=== PATIENT | female | born 1935 | race Caucasian/White ===

== ENCOUNTER 2021-10-12 17:05 | Inpatient (IN) | payer MEDICARE ==
[~2021-10-12] VITALS: Ht 160 cm; Wt 82.2 kg
[2021-10-12] MEDS ORDERED: NS IV 500 ML 500 ML IV ONE (17:15)
--- NOTE | 2021-10-12 17:19 | ED Fall/Injury ---
General Chief Complaint: Trauma-Non Activation Stated Complaint: FALL Source: patient, RN/MD, EMS, [facility] records Exam Limitations: no limitations History of Present Illness Date Seen by Provider: Oct 12, 2021 Time Seen by Provider: 17:01 Initial Comments The patient presents to the ER by EMS from [facility] with chief complaint that just prior to arrival they were transitioning from the wheelchair to the bed and she somehow slid out of the aides grasped to the floor. She did not strike her head nor lose consciousness. She is not having any nausea or vomiting. She denies pain anywhere but her left leg was angulated and in the plane of her left thigh laterally. It is still swollen and deformed as well as shortened and rotated. She has had both of her hips replaced in the past at [place] but she does not member the surgeon's name. The patient is on Eliquis, insulin and Lasix. Allergies and Home Medications Allergies Coded Allergies: No Known Drug Allergies (Unverified , 10/12/21) Patient Home Medication List Home Medication List Reviewed: Yes Review of Systems Review of Systems Constitutional: see HPI Eyes: No Symptoms Reported Respiratory: no symptoms reported Cardiovascular: no symptoms reported Gastrointestinal: no symptoms reported Genitourinary: no symptoms reported Musculoskeletal: no symptoms reported Skin: no symptoms reported Psychiatric/Neurological: No Symptoms Reported All Other Systems Reviewed Negative Unless Noted: Yes Past Jcskkrk-Oaiibe-Avqjbq Hx Patient Social History Tobacco Use?: No Use of E-Cig and/or Vaping dev: No Substance use?: No Alcohol Use?: No Pt feels they are or have been: No Physical Exam Vital Signs Vital Signs - First Documented Capillary Refill : Height, Weight, BMI Height: '" Weight: lbs. oz. kg; BMI Method: General Appearance: WD/WN, no apparent distress HEENT: PERRL/EOMI (3mm), normal ENT inspection, TMs normal (Negative for elkins sign or hemotympanum), pharynx normal Neck: full range of motion, normal inspection Cardiovascular: normal peripheral pulses, regular rate, rhythm Respiratory: lungs clear, normal breath sounds, no respiratory distress, no accessory muscle use Peripheral Pulses: 2+ Radial Pulses (R), 2+ Radial Pulses (L) Gastrointestinal: normal bowel sounds, non tender, soft Pelvic: normal external exam Extremities: other (Tenderness over the distal left femur with obvious deformity and tenting of skin above the knee. No abrasion ecchymosis or laceration. 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, no motor/sensory deficits, alert, normal mood/affect, oriented x 3 Skin: normal color, warm/dry Progress/Results/Core Measures Results/Orders Lab Results Laboratory Tests Test 10/12/21 18:07 Range/Units White Blood Count 11.9 H 4.3-11.0 10^3/uL Red Blood Count 4.59 3.80-5.11 10^6/uL Hemoglobin 13.8 11.5-16.0 g/dL Hematocrit 43 35-52 % Mean Corpuscular Volume 94 80-99 fL Mean Corpuscular Hemoglobin 30 25-34 pg Mean Corpuscular Hemoglobin Concent 32 32-36 g/dL Red Cell Distribution Width 12.4 10.0-14.5 % Platelet Count 240 130-400 10^3/uL Mean Platelet Volume 10.1 9.0-12.2 fL Immature Granulocyte % (Auto) 1 % Neutrophils (%) (Auto) 86 H 42-75 % Lymphocytes (%) (Auto) 7 L 12-44 % Monocytes (%) (Auto) 5 0-12 % Eosinophils (%) (Auto) 0 0-10 % Basophils (%) (Auto) 0 0-10 % Neutrophils # (Auto) 10.3 H 1.8-7.8 10^3/uL Lymphocytes # (Auto) 0.9 L 1.0-4.0 10^3/uL Monocytes # (Auto) 0.6 0.0-1.0 10^3/uL Eosinophils # (Auto) 0.0 0.0-0.3 10^3/uL Basophils # (Auto) 0.0 0.0-0.1 10^3/uL Immature Granulocyte # (Auto) 0.1 0.0-0.1 10^3/uL Neutrophils % (Manual) 88 % Lymphocytes % (Manual) 5 % Monocytes % (Manual) 7 % Elliptocytes SLIGHT Prothrombin Time 15.6 H 12.2-14.7 SEC INR Comment 1.2 0.8-1.4 Sodium Level 138 135-145 MMOL/L Potassium Level 3.8 3.6-5.0 MMOL/L Chloride Level 102 98-107 MMOL/L Carbon Dioxide Level 25 21-32 MMOL/L Anion Gap 11 5-14 MMOL/L Blood Urea Nitrogen 13 7-18 MG/DL Creatinine 0.80 0.60-1.30 MG/DL Estimat Glomerular Filtration Rate 71 BUN/Creatinine Ratio 16 Glucose Level 59 *L 70-105 MG/DL Calcium Level 8.6 8.5-10.1 MG/DL Corrected Calcium 9.4 8.5-10.1 MG/DL Total Bilirubin 0.5 0.1-1.0 MG/DL Aspartate Amino Transf (AST/SGOT) 24 5-34 U/L Alanine Aminotransferase (ALT/SGPT) 22 0-55 U/L Alkaline Phosphatase 102 40-136 U/L Total Protein 6.0 L 6.4-8.2 GM/DL Albumin 3.0 L 3.2-4.5 GM/DL My Orders Orders - JAXON,MITZI J Knee, Left, 3 Views (10/12/21 17:12) Ankle, Left, 3 Views (10/12/21 17:12) Hip, Left, 2 Views (10/12/21 17:12) Ed Iv/Invasive Line Start (10/12/21 17:12) Ns Iv 500 Ml (Sodium Chloride 0.9%) (10/12/21 17:15) Cbc With Automated Diff (10/12/21 17:12) Comprehensive Metabolic Panel (10/12/21 17:12) Chest 1 View, Ap/Pa Only (10/12/21 17:19) Protime With Inr (10/12/21 17:19) Ct Head/Cervical Spine Wo (10/12/21 ) Ekg Tracing (10/12/21 18:10) Manual Differential (10/12/21 18:07) Medications Given in ED Current Medications Medications Dose Ordered Sig/[place] Route Start Time Stop Time Status Last Admin Dose Admin Sodium Chloride 500 ml @ 0 mls/hr Q0M ONCE IV 10/12/21 17:15 10/12/21 17:16 DC 10/12/21 18:10 0 MLS/HR Vital Signs/I&O 10/12/21 10/12/21 17:05 17:05 Pulse 86 86 Resp 16 16 B/P (MAP) 138/68 (91) 138/68 (91) Pulse Ox 95 95 O2 Delivery Room Air Room Air Progress Progress Note : Time: 18:08 Progress Note Discussed the case with Dr. Mohr, orthopedic surgery. He will review imaging and call us back. 1814: Dr. Mohr would like cardiac clearance and to take her to the OR tomorrow if possible for surgical repair. Initial ECG Impression Date: Oct 12, 2021 Initial ECG Impression Time: 18:18 Initial ECG Rate: 83 Initial ECG Rhythm: A Fib/Flutter Initial ECG Intervals: QT (479) Initial ECG Impression: Nonspecific Changes, Atrial Fibrillation Initial ECG Comparisson: Unchanged Comment Atrial fibrillation without clinically relevant ST changes. Interventricular conduction delay. Diagnostic Imaging Diagonstic Imaging: Xray Plain Films/CT/US/NM/MRI: knee (l) Comments [facility] [place], [place] NAME[facility] REC[facility] [id number] PT STATUS: REG ER : 1935 PHYSICIAN: IMTZI COATES MD ADMIT DATE: 10/12/21/ER Signed Date of Exam:10/12/21 KNEE, LEFT, 3 VIEWS INDICATION: Left knee pain post trauma, fall. EXAMINATION: AP and oblique and lateral views of the left knee were obtained. FINDINGS: There is a comminuted displaced fracture of the distal femoral shaft, with medial displacement of the distal fragment relative to the proximal fragment. There are underlying degenerative changes of the knee joint with chondrocalcinosis. No other fracture is visualized. IMPRESSION: Comminuted displaced distal femoral fracture in the supracondylar region. Underlying degenerative changes. Dictated by: Dictated on workstation # [id number] Dict: 10/12/211758 Trans: 10/12/211812 [facility] [id number] Interpreted by: ZANDRA RHODES MD Electronically signed by: ZANDRA RHODES MD 10/12/211812 Reviewed: Reviewed by Mi Diagonstic Imaging: Xray Plain Films/CT/US/NM/MRI: hip (l) Comments [facility] [place], [place] NAME: CHANADANNY [facility] REC#: [id number] PT STATUS: REG ER : 1935 PHYSICIAN: MITZI COATES MD ADMIT DATE: 10/12/21/ER Signed Date of Exam:10/12/21 HIP, LEFT, 2 VIEWS INDICATION: Left hip pain. EXAMINATION: AP and oblique views of the left hip were obtained. COMPARISON: There is no prior study available for comparison. FINDINGS: Previous acetabular screws are in place. No acute fracture is seen. There are vascular calcifications. There is mild degenerative change of the left hip joint. IMPRESSION: Postop changes with acetabular screws in place. No acute abnormality of the left hip. Dictated by: Dictated on workstation # [id number] Dict: 10/12/211757 Trans: 10/12/211811 [facility] [id number] Interpreted by: ZANDRA RHODES MD Electronically signed by: ZANDRA RHODES MD 10/12/211811 Reviewed: Reviewed by Mi Diagonstic Imaging: Xray Plain Films/CT/US/NM/MRI: chest Comments [facility] [place] NAME: DANNY ZAYAS [facility] REC#: [id number] PT STATUS: REG ER : 1935 PHYSICIAN: MITZI COATES MD ADMIT DATE: 10/12/21/ER Signed Date of Exam:10/12/21 CHEST 1 VIEW, AP/PA ONLY INDICATION: Trauma with fall. EXAMINATION: Frontal chest was obtained at 5:44 p.m. FINDINGS: There is cardiomegaly. There is no focal infiltrate or pneumothorax or pleural fluid. There is no overt acute bony abnormality in the chest. IMPRESSION: Cardiomegaly with no acute process visualized. Dictated by: Dictated on workstation # [id number] Dict: 10/12/211757 Trans: 10/12/211810 [facility] [id number] Interpreted by: ZANDRA RHODES MD Electronically signed by: ZANDRA RHODES MD 10/12/211810 Reviewed: Reviewed by Mi Diagonstic Imaging: Xray Plain Films/CT/US/NM/MRI: ankle (l) Comments [facility] [place] [place] NAME: DANNY ZAYAS [facility] REC#: [id number] PT STATUS: REG ER : 1935 PHYSICIAN: MITZI COATES MD ADMIT DATE: 10/12/21/ER Signed Date of Exam:10/12/21 ANKLE, LEFT, 3 VIEWS INDICATION: Left ankle pain post injury. EXAMINATION: AP, oblique and lateral views of the left ankle were obtained. FINDINGS: There is generalized osteopenia. There is no acute fracture. Extensive degenerative changes throughout the tarsal bones are noted. IMPRESSION: Extensive degenerative changes in the tarsal bones. No acute fracture of the left ankle. Dictated by: Dictated on workstation # [id number] Dict: 10/12/21 1800 Trans: 10/12/211812 [facility] [id number] Interpreted by: ZANDRA RHODES MD Electronically signed by: ZANDRA RHODES MD 10/12/211812 Reviewed: Reviewed by Mi Diagonstic Imaging: CT Plain Films/CT/US/NM/MRI: c-spine, head Comments [facility] [place] NAME: DANNY ZAYAS [facility] REC#: [id number] PT STATUS: REG ER : 1935 PHYSICIAN: MITZI COATES MD ADMIT DATE: 10/12/21/ER Signed Date of Exam:10/12/21 CT HEAD/CERVICAL SPINE WO INDICATION: Fall with head and neck pain. TECHNIQUE: Multiple contiguous axial images were obtained through the brain and cervical spine without the use of intravenous contrast. Sagittal and coronal reformations through the cervical spine were then performed. Auto Exposure Controls were utilized during the CT exam to meet ALARA standards for radiation dose reduction. COMPARISON: There is no prior study for comparison. CT BRAIN FINDINGS: There are diffuse atrophic changes. 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 There is no subdural or epidural collection or acute intracranial hemorrhage. Ventricles are normal in size. There is an old right cerebellar infarct. Calvarial windows show no fracture. CT CERVICAL SPINE FINDINGS: There is no evidence of cervical spine fracture. There is no subluxation or malalignment. There are extensive degenerative changes throughout the cervical spine with disc space narrowing and ossified formation at essentially all levels. There is diffuse facet degenerative change. There are extensive calcifications in the carotid bifurcations incidentally noted. IMPRESSION: 1. 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 No acute intracranial abnormality is seen. 2. CT cervical spine shows extensive degenerative change but no acute fracture or subluxation. Dictated by: Dictated on workstation # [id number] Dict: 10/12/21 1743 Trans: 10/12/21 1805 [facility] [id number] Interpreted by: ZANDRA RHODES MD Electronically signed by: ZANRDA RHODES MD 10/12/211804 Reviewed: Reviewed by Me Departure Communication (Admissions) Time/Spoke to Admitting Phy: 18:20 Discussed the case with Dr. Mcbride who agrees to admit the patient with consult cardiology and orthopedic surgery. Hold the Eliquis. N.p.o. at midnight. Time/Spoke to Consulting Phy: 18:15 Discussed the case with Dr. Mohr who agrees to consult and attempt to fix the left femur operatively given clearance by cardiology. Discussed the case with Dr. Russell, cardiology who agrees to consult. Impression Primary Impression: Fall Qualified Codes: W19.XXXA - Unspecified fall, initial encounter Additional Impression: Fracture, femur, distal Qualified Codes: S72.402A - Unspecified fracture of lower end of left femur, initial encounter for closed fracture Disposition: ADMITTED INPATIENT Condition: Stable Admissions Decision to Admit Reason: Admit from ER (General) Decision to Admit/Date: Oct 12, 2021 Time/Decision to Admit Time: 18:09 Departure-Patient Inst. Referrals: THUY BROOKS MD (PCP/Family) Primary Care Physician Copy Copies To 1: THUY BROOKS MD, TITUS J Oct 12, 2021 17:19
--- NOTE | 2021-10-12 18:05 | Diagnostic Imaging Report ---
INDICATION: Fall with head and neck pain. TECHNIQUE: Multiple contiguous axial images were obtained through the brain and cervical spine without the use of intravenous contrast. Sagittal and coronal reformations through the cervical spine were then performed. Auto Exposure Controls were utilized during the CT exam to meet ALARA standards for radiation dose reduction. COMPARISON: There is no prior study for comparison. CT BRAIN FINDINGS: There are diffuse atrophic changes. 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 There is no subdural or epidural collection or acute intracranial hemorrhage. Ventricles are normal in size. There is an old right cerebellar infarct. Calvarial windows show no fracture. CT CERVICAL SPINE FINDINGS: There is no evidence of cervical spine fracture. There is no subluxation or malalignment. There are extensive degenerative changes throughout the cervical spine with disc space narrowing and ossified formation at essentially all levels. There is diffuse facet degenerative change. There are extensive calcifications in the carotid bifurcations incidentally noted. IMPRESSION: 1. 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 No acute intracranial abnormality is seen. 2. CT cervical spine shows extensive degenerative change but no acute fracture or subluxation. Dictated by: Dictated on workstation # [id number]
--- NOTE | 2021-10-12 18:10 | Diagnostic Imaging Report ---
INDICATION: Trauma with fall. EXAMINATION: Frontal chest was obtained at 5:44 p.m. FINDINGS: There is cardiomegaly. There is no focal infiltrate or pneumothorax or pleural fluid. There is no overt acute bony abnormality in the chest. IMPRESSION: Cardiomegaly with no acute process visualized. Dictated by: Dictated on workstation # [id number]
--- NOTE | 2021-10-12 18:11 | Diagnostic Imaging Report ---
INDICATION: Left hip pain. EXAMINATION: AP and oblique views of the left hip were obtained. COMPARISON: There is no prior study available for comparison. FINDINGS: Previous acetabular screws are in place. No acute fracture is seen. There are vascular calcifications. There is mild degenerative change of the left hip joint. IMPRESSION: Postop changes with acetabular screws in place. No acute abnormality of the left hip. Dictated by: Dictated on workstation # [id number]
--- NOTE | 2021-10-12 18:13 | Diagnostic Imaging Report ---
INDICATION: Left knee pain post trauma, fall. EXAMINATION: AP and oblique and lateral views of the left knee were obtained. FINDINGS: There is a comminuted displaced fracture of the distal femoral shaft, with medial displacement of the distal fragment relative to the proximal fragment. There are underlying degenerative changes of the knee joint with chondrocalcinosis. No other fracture is visualized. IMPRESSION: Comminuted displaced distal femoral fracture in the supracondylar region. Underlying degenerative changes. Dictated by: Dictated on workstation # [id number]
[2021-10-12 18:14] LABS: BASOPHILS % (AUTO) 0 % (0-10); EOSINOPHILS % (AUTO) 0 % (0-10); HEMATOCRIT 43 % (35-52); HEMOGLOBIN 13.8 g/dL (11.5-16.0); LYMPHOCYTES # (AUTO) 0.9 10^3/uL (1.0-4.0); LYMPHOCYTES % (AUTO) 7 % (12-44); MEAN CORPUSCULAR HEMOGLOBIN 30 pg (25-34); MEAN CORPUSCULAR HGB CONC 32 g/dL (32-36); MEAN CORPUSCULAR VOLUME 94 fL (80-99); MEAN PLATELET VOLUME 10.1 fL (9.0-12.2); MONOCYTES # (AUTO) 0.6 10^3/uL (0.0-1.0); MONOCYTES % (AUTO) 5 % (0-12); NEUTROPHILS # (AUTO) 10.3 10^3/uL (1.8-7.8); NEUTROPHILS % (AUTO) 86 % (42-75); PLATELET COUNT 240 10^3/uL (130-400); WHITE BLOOD COUNT 11.9 10^3/uL (4.3-11.0)
--- NOTE | 2021-10-12 18:14 | Diagnostic Imaging Report ---
INDICATION: Left ankle pain post injury. EXAMINATION: AP, oblique and lateral views of the left ankle were obtained. FINDINGS: There is generalized osteopenia. There is no acute fracture. Extensive degenerative changes throughout the tarsal bones are noted. IMPRESSION: Extensive degenerative changes in the tarsal bones. No acute fracture of the left ankle. Dictated by: Dictated on workstation # [id number]
[2021-10-12 18:25] LABS: INR 1.2 (0.8-1.4); LYMPHOCYTES % (MANUAL) 5 %; MONOCYTES % (MANUAL) 7 %; NEUTROPHILS % (MANUAL) 88 %; POTASSIUM 3.8 MMOL/L (3.6-5.0); PROTHROMBIN TIME PATIENT 15.6 SEC (12.2-14.7)
[2021-10-12 18:26] LABS: CALCIUM 8.6 MG/DL (8.5-10.1); ELLIPT/OVALOCYTES SLIGHT
[2021-10-12 18:29] LABS: BILIRUBIN,TOTAL 0.5 MG/DL (0.1-1.0)
[2021-10-12 18:31] LABS: CREATININE SERUM 0.8 MG/DL (0.60-1.30)
[2021-10-12] MEDS ORDERED: D5 NS 1000 ML IV SOLUTION 1,000 ML IV ONE (18:45)
[2021-10-12 19:51] VITALS: BP 134/65
--- NOTE | 2021-10-12 20:50 | CONSULTATION REPORT ---
DATE OF SERVICE: 10/12/2021 INPATIENT CONSULTATION REASON FOR CONSULTATION: Left distal femur fracture, closed, displaced. HISTORY OF PRESENT ILLNESS: The [facility] is an 85[facility], who apparently slipped out of the aides grasp at the [facility] while transferring and struck her left lower extremity. She presented to the Emergency Department with gross deformity of her left lower extremity, was found to have a closed displaced left distal femur fracture for which I was consulted. She denies antecedent pain. She denies paresthesias. PAST MEDICAL HISTORY: Significant for atrial fibrillation, diabetes mellitus, hypertension. MEDICATIONS: Eliquis, insulin, Lasix. ALLERGIES: NO KNOWN DRUG ALLERGIES. PHYSICAL EXAMINATION: EXTREMITIES: The left lower extremity is shortened and slightly externally rotated. She has symmetric pulses with symmetric capillary refill. She has intact dorsiflexion and plantarflexion of the toes. No skin lesions are noted. RADIOGRAPHS: Reveal a displaced left distal femur shaft fracture. There is shortening. Her bone quality is extremely poor, but this appears to be extraarticular. There may be an intraarticular split. IMPRESSION: Left distal femur shaft fracture, closed, displaced. PLAN: Open reduction and internal fixation of the left distal femur. Discussed risks, benefits, options, ramifications and recovery with the patient. She appears to understand and wishes to proceed. Job ID: [id number] DocumentID: [id number] Dictated Date: 10/12/2021 19:29:21 Mmd Unit Teacher Date: 10/12/2021 20:50:08 Dictated By: SARAH GARCIA MD
[2021-10-12] MEDS ORDERED: morphine INJ 4 MG/ML 1 ML (VIAL/SYRINGE) IV PRN (21:30)
[2021-10-12] MEDS ORDERED: ONDANSETRON 4 MG/2 ML (SDV) Z0FRAN IV PRN (21:30)
[2021-10-12] MEDS ORDERED: D5 NS 1000 ML IV SOLUTION 500 ML IV ONE (21:30)
[2021-10-12 23:41] VITALS: BP 174/73
[2021-10-13] VITALS (21 sets, daily range): BP systolic 57–132; BP diastolic 31–110
[2021-10-13] MEDS: NS IV 1000 ML 1,000 ML IV SCH ×3 (03:14→21:43)
[2021-10-13] MEDS: fentaNYL INJ 100 MCG/2 ML AMP IV PRN ×3 (04:13→09:57)
[2021-10-13 06:19] LABS: BASOPHILS % (AUTO) 0 % (0-10); EOSINOPHILS % (AUTO) 0 % (0-10); HEMATOCRIT 37 % (35-52); HEMOGLOBIN 11.5 g/dL (11.5-16.0); LYMPHOCYTES # (AUTO) 0.9 10^3/uL (1.0-4.0); LYMPHOCYTES % (AUTO) 8 % (12-44); MEAN CORPUSCULAR HEMOGLOBIN 31 pg (25-34); MEAN CORPUSCULAR HGB CONC 31 g/dL (32-36); MEAN CORPUSCULAR VOLUME 97 fL (80-99); MEAN PLATELET VOLUME 10.6 fL (9.0-12.2); MONOCYTES # (AUTO) 0.7 10^3/uL (0.0-1.0); MONOCYTES % (AUTO) 7 % (0-12); NEUTROPHILS # (AUTO) 9.6 10^3/uL (1.8-7.8); NEUTROPHILS % (AUTO) 85 % (42-75); PLATELET COUNT 241 10^3/uL (130-400); WHITE BLOOD COUNT 11.3 10^3/uL (4.3-11.0)
[2021-10-13 06:31] LABS: POTASSIUM 4.6 MMOL/L (3.6-5.0)
[2021-10-13 06:32] LABS: CALCIUM 8.2 MG/DL (8.5-10.1)
[2021-10-13 06:36] LABS: CREATININE SERUM 0.84 MG/DL (0.60-1.30)
[2021-10-13] MEDS ORDERED: fentaNYL INJ 100 MCG/2 ML AMP ONE ×2 (07:22→09:59)
--- NOTE | 2021-10-13 07:36 | Progress Note-Post Operative ---
Post-Operative Progess Note Surgeon (s)/Wellness Health Coach (s) Surgeon SARAH GARCIA MD Wellness Health Coach: Kalyan Eisenberg Pre-Operative Diagnosis left distal femur fracture Post-Operative Diagnosis left distal femur fracture Procedure & Operative Findings Date of Procedure 10/13/21 Procedure Performed/Findings ORIF left distal femur Anesthesia Type GETA Estimated Blood Loss Estimated blood loss (mL): 500 ml Specimens/Packing Specimens Removed none Packing: none SARAH GARCIA MD Oct 13, 2021 07:36
--- NOTE | 2021-10-13 07:36 | Progress Note-Pre Operative ---
Pre-Operative Progress Note H&P Reviewed The H&P was reviewed, patient examined and no changes noted. Date Seen by Provider: Oct 13, 2021 Time Seen by Provider: 07:36 Date H&P Reviewed: Oct 13, 2021 Time H&P Reviewed: 07:11 Pre-Operative Diagnosis: left distal femur fracture SARAH GARCIA MD Oct 13, 2021 07:36
[2021-10-13] MEDS ORDERED: BUPIVACAINE 0.5% 30 ML (SENSORCAINE) VIAL ONE (07:41)
[2021-10-13] MEDS: LACTATED RINGERS 1,000 ML IV PRN ×2 (07:45→09:07)
[2021-10-13] MEDS ORDERED: ONDANSETRON 4 MG/2 ML (SDV) Z0FRAN IVP PRN ×2 (08:00→11:15)
[2021-10-13] MEDS ORDERED: NALOXONE 0.4 MG/ML 1 ML (NARCAN) VIAL IV PRN (08:00)
[2021-10-13] MEDS ORDERED: ceFAZolin 2 GM IV Premixed 50 ML IV ONE (08:00)
[2021-10-13] MEDS ORDERED: morphine INJ 10 MG/ML 1ML (SYR OR VIAL) IVP PRN (08:00)
[2021-10-13] MEDS ORDERED: ESMOLOL 100 MG/10 ML (BREVIBLOC) VIAL ONE ×2 (09:57→10:21)
[2021-10-13] MEDS ORDERED: LIDOCAINE PF 2% 5 ML (XYLOCAINE) VIAL ONE (10:19)
[2021-10-13] MEDS ORDERED: proPOfol 200 MG/20 ML (DIPRIVAN) VIAL IV ONE (10:19)
[2021-10-13] MEDS ORDERED: ONDANSETRON 4 MG/2 ML (SDV) Z0FRAN ONE (10:19)
[2021-10-13] MEDS ORDERED: hydrALAZINE (APESOLINE) 20 MG/ML VIAL ONE (10:19)
[2021-10-13] MEDS ORDERED: PHENYLEPHRINE 100 MCG/ML 10 ML (ANESTHESIA) SYR ONE ×2 (10:20→10:21)
[2021-10-13] MEDS ORDERED: PHENYLEPHRINE INJ 10 MG/ML (FOR PYXIS KITS ONLY) ONE (10:20)
[2021-10-13] MEDS ORDERED: SEVOFLURANE (ULTANE) 15 ML INHAL SOLN ONE (10:26)
--- NOTE | 2021-10-13 10:43 | Diagnostic Imaging Report ---
INDICATION: Surgery. FINDINGS: 2 minutes and 2 seconds of fluoroscopy time were utilized during ORIF of the distal femoral fractures. IMPRESSION: Fluoroscopy utilized during orthopedic surgery. Dictated by: Dictated on workstation # [id number]
[2021-10-13] MEDS ORDERED: LACTATED RINGERS 1,000 ML IV ONE (10:45)
[2021-10-13] MEDS ORDERED: DIGOXIN 0.25 MG/ML (LANOXIN) 2 ML AMP ONE (10:53)
[2021-10-13] MEDS ORDERED: AMIODARONE (BOLUS) 150 MG/3 ML IV ONE (10:53)
[2021-10-13] MEDS ORDERED: AMIODARONE FOR BOLUS 150 MG in NS (IVPB) 100 ML IV ONE (11:00)
[2021-10-13] MEDS ORDERED: DIGOXIN 0.25 MG/ML (LANOXIN) 2 ML AMP IV ONE (11:00)
[2021-10-13] MEDS ORDERED: D5W 100 ML IVPB 100 ML IV ONE (11:01)
[2021-10-13 11:16] LABS: ABG BASE EXCESS -4.8 MMOL/L (-2.5-2.5); ABG OXYGEN SATURATION 100 % (94-100); ABG PCO2 36 MMHG (35-45); ABG PH 7.36 (7.37-7.43); ABG PO2 168 MMHG (79-93); ABG TCO2 21.3 MMOL/L (21.0-31.0); ALLENS TEST YES-POS
[2021-10-13 11:17] LABS: PATIENT TEMP 35.3; VENTILATOR NO
[2021-10-13] MEDS ORDERED: NOREPINEPHRINE 8 MG/250 ML 250 ML IV ONE (11:27)
[2021-10-13] MEDS ORDERED: NOREPINEPHRINE 8 MG/250 ML 250 ML IV SCH (11:30)
--- NOTE | 2021-10-13 11:36 | Tele-ICU Progress Note ---
Subjective Date Seen by a Provider: Oct 13, 2021 Time Seen by a Provider: 11:36 Subjective/Events-last exam Available chart/vitals/labs/images reviewed. Video assessment done using telemetry ICU camera, rest of exam as per RN. Discussion with the RN, exam as per RN. Hospital course She is 85-year-old female with unknown past medical history brought to the emergency room from the half-way as she fell down and sustained injury to the left left leg. She is found to have a supracondylar displaced fracture. She is taken to the operating room by the orthopedic surgeon and did have open reduction and internal fixation. Postoperatively patient is hypotensive and all operative atrial fibrillation with rapid ventricular rate. It is not clear whether she has any history of A. fib in the past. She was seen by chief medical officer and started on amiodarone drip. Subsequently transferred to the intensive care unit. I have evaluated her old with video visit and discussed with the TRIAL COURT JUSTICE. Ordered a fluid bolus and will hold amiodarone drip temporarily until the blood pressure improved meanwhile her heart rate improved. Ordered CBC and a BMP. Chest x-ray report reviewed and showed no acute infiltrates. Patient is not in a position to give any detailed history. Sepsis Event Evaluation Height, Weight, BMI Height: '" Weight: lbs. oz. kg; 32.10 BMI Method: Exam Exam Patient acknowledged, consented, and participated in this virtual visit which was conducted using real time audio/video Vital Signs Date Time Temp Pulse Resp B/P (MAP) Pulse Ox O2 Delivery O2 Flow Rate FiO2 10/13/21 11:12 104 10/13/21 07:45 96 Room Air 10/13/21 04:00 36.9 101 17 112/71 (85) 100 Room Air 10/12/21 23:41 36.4 110 20 174/73 (106) 99 Room Air 10/12/21 19:51 36.2 50 20 134/65 (88) 92 Room Air 10/12/21 19:35 Room Air 10/12/21 19:01 94 16 110/84 97 Room Air 10/12/21 17:05 86 16 138/68 (91) 95 Room Air 10/12/21 17:05 86 16 138/68 (91) 95 Room Air I & O 10/13/21 07:00 Intake Total 600 ml Output Total 450 ml Balance 150 ml Height & Weight Height: '" Weight: lbs. oz. kg; 32.10 BMI Method: General Appearance: Chronically ill, Mild Distress Capillary Refill: Less Than 3 Seconds Peripheral Pulses: 2+ Radial Pulses (R), 2+ Radial Pulses (L) Gastrointestinal: normal bowel sounds, non tender, soft Other comments PE PER RN Results Lab Laboratory Tests 10/12/21 18:07 10/13/21 06:04 Assessment/Plan Assessment/Plan 1. Status post fall with left femur fracture supracondylar region. 2. Status post ORIF and internal fixation 3. Postoperative hypotension 4. Postoperative atrial fibrillation with rapid ventricular rate 5. Postoperative hypoxia requiring supplemental oxygen. Recommendations 1. We will give IV fluid bolus and if no improvement will start on IV Levophed. 2. IV amiodarone per cardiology service 3. Continue supplemental oxygen via facemask 4. Needs aggressive DVT prophylaxis once made sure there is no bleeding. 5. Video visit made and discussed with TRIAL COURT JUSTICE. Critical Care: Critically Ill Patient Time spent with patient (mins): 30 JAJA PADILLA MD Oct 13, 2021 11:36
[2021-10-13] MEDS: inSUlin ASPART (NovoLOG) 1 UNIT/0.01 ML (CHARGE PER UNIT) SC SCH ×4 (11:44→20:35)
[2021-10-13] MEDS: AMIODARONE INJECTION 450 MG in D5W IV SOLUTION (EXCEL) 250 ML IV SCH ×2 (11:50→19:20)
--- NOTE | 2021-10-13 12:17 | Consultation-Cardiology ---
HPI-Cardiology Cardiology Consultation Date of Consultation 10/13/21 Date of Admission Time Seen by Provider: 12:12 Indication: Atrial fibrillation, hypotensive shock HPI 85-year-old lady who was admitted with hip fracture. Patient was transitioning from her wheelchair to the bed and fell to the floor resulted in left hip fracture. She underwent surgical repair this morning. During the surgery and postoperatively patient had atrial fibrillation with rapid ventricular response in addition to hypotension. On my evaluation she was laying down in bed, she is on oxygen mask, still sleepy and groggy from the anesthesia, does not have any complaint. Unable to provide full history and review of system. According to the emergency room record she has been on Eliquis, insulin and Lasix Home Medications & Allergies Allergies: Coded Allergies: No Known Drug Allergies (Unverified , 10/12/21) Home Medication List Reviewed: Yes MAL-Ybonbt-Izpcee Hx Patient Social History Employed/Student: retired Have you traveled recently?: Yes Alcohol Use?: No Past Medical History Discussed below Family Medical History Family Medical Hx Noncontributory Review of Systems-General Review of Systems Constitutional: see HPI, other (Lethargic, unable to provide review of system) Respiratory: no symptoms reported Cardiovascular: no symptoms reported Gastrointestinal: no symptoms reported Genitourinary: no symptoms reported Musculoskeletal: no symptoms reported Skin: no symptoms reported Psychiatric/Neurological: No Symptoms Reported All Other Systems Reviewed Negative Unless Noted: Yes Reviewed Test Results Reviewed Test Results Lab Laboratory Tests Test 10/12/21 18:07 10/12/21 20:31 10/13/21 05:03 10/13/21 06:04 Range/Units White Blood Count 11.9 H 11.3 H 4.3-11.0 10^3/uL Red Blood Count 4.59 3.76 L 3.80-5.11 10^6/uL Hemoglobin 13.8 11.5 11.5-16.0 g/dL Hematocrit 43 37 35-52 % Mean Corpuscular Volume 94 97 80-99 fL Mean Corpuscular Hemoglobin 30 31 25-34 pg Mean Corpuscular Hemoglobin Concent 32 31 L 32-36 g/dL Red Cell Distribution Width 12.4 12.5 10.0-14.5 % Platelet Count 240 241 130-400 10^3/uL Mean Platelet Volume 10.1 10.6 9.0-12.2 fL Immature Granulocyte % (Auto) 1 1 % Neutrophils (%) (Auto) 86 H 85 H 42-75 % Lymphocytes (%) (Auto) 7 L 8 L 12-44 % Monocytes (%) (Auto) 5 7 0-12 % Eosinophils (%) (Auto) 0 0 0-10 % Basophils (%) (Auto) 0 0 0-10 % Neutrophils # (Auto) 10.3 H 9.6 H 1.8-7.8 10^3/uL Lymphocytes # (Auto) 0.9 L 0.9 L 1.0-4.0 10^3/uL Monocytes # (Auto) 0.6 0.7 0.0-1.0 10^3/uL Eosinophils # (Auto) 0.0 0.0 0.0-0.3 10^3/uL Basophils # (Auto) 0.0 0.0 0.0-0.1 10^3/uL Immature Granulocyte # (Auto) 0.1 0.1 0.0-0.1 10^3/uL Neutrophils % (Manual) 88 % Lymphocytes % (Manual) 5 % Monocytes % (Manual) 7 % Elliptocytes SLIGHT Prothrombin Time 15.6 H 12.2-14.7 SEC INR Comment 1.2 0.8-1.4 Sodium Level 138 135 135-145 MMOL/L Potassium Level 3.8 4.6 3.6-5.0 MMOL/L Chloride Level 102 102 98-107 MMOL/L Carbon Dioxide Level 25 22 21-32 MMOL/L Anion Gap 11 11 5-14 MMOL/L Blood Urea Nitrogen 13 16 7-18 MG/DL Creatinine 0.80 0.84 0.60-1.30 MG/DL Estimat Glomerular Filtration Rate 71 67 BUN/Creatinine Ratio 16 19 Glucose Level 59 *L 312 H 70-105 MG/DL Calcium Level 8.6 8.2 L 8.5-10.1 MG/DL Corrected Calcium 9.4 8.5-10.1 MG/DL Total Bilirubin 0.5 0.1-1.0 MG/DL Aspartate Amino Transf (AST/SGOT) 24 5-34 U/L Alanine Aminotransferase (ALT/SGPT) 22 0-55 U/L Alkaline Phosphatase 102 40-136 U/L Total Protein 6.0 L 6.4-8.2 GM/DL Albumin 3.0 L 3.2-4.5 GM/DL Glucometer 86 307 H 70-110 MG/DL Test 10/13/21 10:44 10/13/21 11:07 10/13/21 11:41 Range/Units Glucometer 356 H 70-110 MG/DL Blood Gas Puncture Site RT RAD Blood Gas Patient Temperature 35.3 Arterial Blood pH 7.36 L 7.37-7.43 Arterial Blood Partial Pressure CO2 36 35-45 MMHG Arterial Blood Partial Pressure O2 168 H 79-93 MMHG Arterial Blood HCO3 20 L 23-27 MMOL/L Arterial Blood Total CO2 21.3 21.0-31.0 MMOL/L Arterial Blood Oxygen Saturation 100 94-100 % Arterial Blood Base Excess -4.8 L -2.5-2.5 MMOL/L Bc Test YES-POS Blood Gas Ventilator Setting NO Blood Gas Inspired Oxygen NA Physical Exam Physical Exam Vital Signs Vital Signs - First Documented 10/12/21 19:51 Temp 36.2 Capillary Refill : Less Than 3 Seconds Height, Weight, BMI Height: '" Weight: lbs. oz. kg; 32.10 BMI Method: General Appearance: WD/WN, Moderate Distress Eyes: Bilateral Eye Normal Inspection, Bilateral Eye PERRL, Bilateral Eye EOMI HEENT: PERRL/EOMI, TMs Normal, Normal ENT Inspection, Pharynx Normal, Moist Mucous Membranes Neck: Full Range of Motion, Normal Inspection, Non Tender, Supple, Carotid B ruit Respiratory: Chest Non Tender, Normal Breath Sounds, No Accessory Muscle Use, No Respiratory Distress Cardiovascular: Regular Rate, Rhythm, No Edema, No Gallop, No JVD, No Murmur, Normal Peripheral Pulses Gastrointestinal: Normal Bowel Sounds, No Organomegaly, No Pulsatile Mass, Non Tender, Soft Back: Normal Inspection, No CVA Tenderness, No Vertebral Tenderness Extremity: Normal Capillary Refill, Normal Inspection, Normal Range of Motion, Non Tender, No Calf Tenderness, No Pedal Edema Neurologic/Psychiatric: Alert, No Motor/Sensory Deficits, Normal Mood/Affect Skin: Normal Color, Warm/Dry Lymphatic: No Adenopathy A/P-Cardiology Admission Diagnosis Atrial fibrillation Tachycardia Hypotension Hip fracture Assessment/Plan Atrial fibrillation with rapid ventricular response. Patient probably has history of chronic atrial fibrillation, has been maintained on Eliquis as an outpatient. I gave her digoxin 0.5 mg IV and amiodarone bolus and a drip. Still hypotensive, cannot tolerate calcium channel blockers or beta-blockers. Hypotensive shock, probably combination of atrial fibrillation and hypovolemia and recovery from anesthesia. Receiving IV fluid. Continue to monitor blood pressure closely. Possible transfusion as needed Left hip fracture, status post surgical repair done on April 14, 2022. Recovering slowly. Shortness of breath, maintained on oxygen. Diabetes mellitus, maintained on insulin as an outpatient. Dementia. PALOMA MACIAS MD Oct 13, 2021 12:17
[2021-10-13 12:24] LABS: BASOPHILS % (AUTO) 0 % (0-10); EOSINOPHILS % (AUTO) 0 % (0-10); HEMATOCRIT 26 % (35-52); HEMOGLOBIN 8.6 g/dL (11.5-16.0); LYMPHOCYTES # (AUTO) 0.6 10^3/uL (1.0-4.0); LYMPHOCYTES % (AUTO) 3 % (12-44); MEAN CORPUSCULAR HEMOGLOBIN 31 pg (25-34); MEAN CORPUSCULAR HGB CONC 33 g/dL (32-36); MEAN CORPUSCULAR VOLUME 96 fL (80-99); MEAN PLATELET VOLUME 10.8 fL (9.0-12.2); MONOCYTES # (AUTO) 1.3 10^3/uL (0.0-1.0); MONOCYTES % (AUTO) 7 % (0-12); NEUTROPHILS # (AUTO) 18.2 10^3/uL (1.8-7.8); NEUTROPHILS % (AUTO) 90 % (42-75); PLATELET COUNT 184 10^3/uL (130-400); WHITE BLOOD COUNT 20.3 10^3/uL (4.3-11.0)
[2021-10-13] MEDS: NOREPINEPHRINE 8 MG/250 ML 250 ML IV SCH (12:35)
[2021-10-13 12:40] LABS: CALCIUM 7.7 MG/DL (8.5-10.1); CREATININE SERUM 1.04 MG/DL (0.60-1.30); POTASSIUM 5.3 MMOL/L (3.6-5.0)
[2021-10-13] MEDS: ceFAZolin 2 GM IV Premixed 50 ML IV SCH ×2 (13:20→17:51)
--- NOTE | 2021-10-13 14:08 | Consultation - Surgery ---
History of Present Illness History of Present Illness Patient Consulted On(raymond/time) 10/13/21 14:02 Time Seen by Provider: 11:31 Reason for Visit: Atrial fibrillation, hypotensive shock History of Present Illness Surgery asked to consult regarding Hypotension and venous insufficiency, need for central venous access. HPI per Cardiology: 85-year-old lady who was admitted with hip fracture. Patient was transitioning from her wheelchair to the bed and fell to the floor resulted in left hip fracture. She underwent surgical repair this morning. During the surgery and postoperatively patient had atrial fibrillation with rapid ventricular response in addition to hypotension. On my evaluation she was laying down in bed, she is on oxygen mask, still sleepy and groggy from the anesthesia, does not have any complaint. Unable to provide full history and review of system. According to the emergency room record she has been on Eliquis, insulin and Lasix When I saw pt she was in the ICU and could only say her name and , all information obtained from chart. Allergies and Home Medications Allergies Coded Allergies: No Known Drug Allergies (Unverified , 10/12/21) Patient Home Medication List Home Medication List Reviewed: Yes Past Phnmzso-Ilhgva-Nxmmde Hx Patient Social History Alcohol Use?: No Have you traveled recently?: Yes Family Medical History Significant Family History: Other Conditions/Hx (Unable to obtain, pt non- communicative and no family available) Review of Systems-General ROS-Unable to Obtain: not non-communicative Physical Exam-General Problems Physical Exam Vital Signs Vital Signs - First Documented 10/12/21 19:51 Temp 36.2 Capillary Refill : Less Than 3 Seconds General Appearance: moderate distress, cachetic Eyes: Bilateral Eye PERRL, Bilateral Eye EOMI HEENT: pharynx normal; No scleral icterus (R), No scleral icterus (L) Respiratory: lungs clear, normal breath sounds, no respiratory distress, no accessory muscle use Cardiovascular: tachycardia, irregularly irregular Gastrointestinal: soft, no organomegaly Neurologic/Psychiatric: other (unable to assess) Data Review Labs Laboratory Tests 10/12/21 18:07: White Blood Count 11.9H, Red Blood Count 4.59, Hemoglobin 13.8, Hematocrit 43, Mean Corpuscular Volume 94, Mean Corpuscular Hemoglobin 30, Mean Corpuscular Hemoglobin Concent 32, Red Cell Distribution Width 12.4, Platelet Count 240, Mean Platelet Volume 10.1, Immature Granulocyte % (Auto) 1, Neutrophils (%) (Auto) 86H, Lymphocytes (%) (Auto) 7L, Monocytes (%) (Auto) 5, Eosinophils (%) (Auto) 0, Basophils (%) (Auto) 0, Neutrophils # (Auto) 10.3H, Lymphocytes # (Auto) 0.9L, Monocytes # (Auto) 0.6, Eosinophils # (Auto) 0.0, Basophils # (Auto) 0.0, Immature Granulocyte # (Auto) 0.1, Neutrophils % (Manual) 88, Lymphocytes % (Manual) 5, Monocytes % (Manual) 7, Elliptocytes SLIGHT, Prothrombin Time 15.6H, INR Comment 1.2, Sodium Level 138, Potassium Level 3.8, Chloride Level 102, Carbon Dioxide Level 25, Anion Gap 11, Blood Urea Nitrogen 13, Creatinine 0.80, Estimat Glomerular Filtration Rate 71, BUN/Creatinine Ratio 16, Glucose Level 59*L, Calcium Level 8.6, Corrected Calcium 9.4, Total Bilirubin 0.5, Aspartate Amino Transf (AST/SGOT) 24, Alanine Aminotransferase (A LT/SGPT) 22, Alkaline Phosphatase 102, Total Protein 6.0L, Albumin 3.0L 10/12/21 20:31: Glucometer 86 10/13/21 05:03: Glucometer 307H 10/13/21 06:04: White Blood Count 11.3H, Red Blood Count 3.76L, Hemoglobin 11.5, Hematocrit 37, Mean Corpuscular Volume 97, Mean Corpuscular Hemoglobin 31, Mean Corpuscular Hemoglobin Concent 31L, Red Cell Distribution Width 12.5, Platelet Count 241, Mean Platelet Volume 10.6, Immature Granulocyte % (Auto) 1, Neutrophils (%) (Auto) 85H, Lymphocytes (%) (Auto) 8L, Monocytes (%) (Auto) 7, Eosinophils (%) (Auto) 0, Basophils (%) (Auto) 0, Neutrophils # (Auto) 9.6H, Lymphocytes # (Auto) 0.9L, Monocytes # (Auto) 0.7, Eosinophils # (Auto) 0.0, Basophils # (Auto) 0.0, Immature Granulocyte # (Auto) 0.1, Sodium Level 135, Potassium Level 4.6, Chloride Level 102, Carbon Dioxide Level 22, Anion Gap 11, Blood Urea Nitrogen 16, Creatinine 0.84, Estimat Glomerular Filtration Rate 67, BUN/Creatinine Ratio 19, Glucose Level 312H, Calcium Level 8.2L 10/13/21 10:44: Glucometer 356H 10/13/21 11:07: Blood Gas Puncture Site RT RAD, Blood Gas Patient Temperature 35.3, Arterial Blood pH 7.36L, Arterial Blood Partial Pressure CO2 36, Arterial Blood Partial Pressure O2 168H, Arterial Blood HCO3 20L, Arterial Blood Total CO2 21.3, Arterial Blood Oxygen Saturation 100, Arterial Blood Base Excess -4.8L, Bc Test YES-POS, Blood Gas Ventilator Setting NO, Blood Gas Inspired Oxygen NA 10/13/21 12:19: White Blood Count 20.3H, Red Blood Count 2.74L, Hemoglobin 8.6#L, Hematocrit 26L , Mean Corpuscular Volume 96, Mean Corpuscular Hemoglobin 31, Mean Corpuscular Hemoglobin Concent 33, Red Cell Distribution Width 12.6, Platelet Count 184, Mean Platelet Volume 10.8, Immature Granulocyte % (Auto) 1, Neutrophils (%) (Auto) 90H, Lymphocytes (%) (Auto) 3L, Monocytes (%) (Auto) 7, Eosinophils (%) (Auto) 0, Basophils (%) (Auto) 0, Neutrophils # (Auto) 18.2H, Lymphocytes # (Auto) 0.6L, Monocytes # (Auto) 1.3H, Eosinophils # (Auto) 0.0, Basophils # (Auto) 0.0, Immature Granulocyte # (Auto) 0.2H, Sodium Level 135, Potassium Level 5.3H, Chloride Level 102, Carbon Dioxide Level 19L, Anion Gap 14, Blood Urea Nitrogen 18, Creatinine 1.04, Estimat Glomerular Filtration Rate 52, BUN/Creatinine Ratio 17, Glucose Level 374H, Calcium Level 7.7L Radiology Date of Exam:10/12/21 KNEE, LEFT, 3 VIEWS INDICATION: Left knee pain post trauma, fall. EXAMINATION: AP and oblique and lateral views of the left knee were obtained. FINDINGS: There is a comminuted displaced fracture of the distal femoral shaft, with medial displacement of the distal fragment relative to the proximal fragment. There are underlying degenerative changes of the knee joint with chondrocalcinosis. No other fracture is visualized. IMPRESSION: Comminuted displaced distal femoral fracture in the supracondylar region. Underlying degenerative changes. Dictated by: Dictated on workstation # [id number] Dict: 10/12/21 1759 Trans: 10/12/21 181 [facility] [id number] Interpreted by: ZANDRA RHODES MD Electronically signed by: ZANDRA RHODES MD 10/12/211812 Assessment/Plan Assessment/Plan Assessment/Plan Hypotension AFib with RVR S/P ORIF of Femoral fx Central line triple lumen catheter placement needed for Pressors and other meds. [facility] and cardiac management. JOAN ISAAC DO Oct 13, 2021 14:08
--- NOTE | 2021-10-13 14:13 | Progress Note-Post Operative ---
Post-Operative Progess Note Surgeon (s)/Financial Recording Clerk (s) Surgeon JOAN ISAAC DO Financial Recording Clerk: none Pre-Operative Diagnosis Hypotension, Venous Insufficiency, Afib with RVR Post-Operative Diagnosis same Procedure & Operative Findings Date of Procedure 10/13/21 Procedure Performed/Findings Procedure: Central line placement The patient was in their bed in the ICU, was prepped and draped in the sterile fashion. A surgical pause was performed. Ultrasound was used to locate the left internal jugular vein. Once located anesthetic was infiltrated above it. Using an 18 gauge finder needle and watching with the US; the right internal jugular vein was accessed. Dark nonpulsatile blood was withdrawn. The wire was inserted. US assured proper placement. The needle was removed. A [#11] blade scalpel was used to make a stab incision along the guidewire. Dilator sheath was then advanced over the wire using Seldinger technique and the dilator was removed. The Groshong catheter was inserted over the guide wire using the Seldinger technique. The Groshong wire was removed. The catheter was then accessed in all three ports without difficulty. Good flash of blood was seen and it was then flushed with saline. The catheter was sutured in place with 3-0 silk on a todd needle. The areas were then washed and dried. Sterile dressing was placed over incision. The patient tolerated the procedure well without complication. Anesthesia Type local lidocaine Estimated Blood Loss Estimated blood loss (mL): scant Specimens/Packing Specimens Removed none JOAN ISAAC DO Oct 13, 2021 14:13
--- NOTE | 2021-10-13 16:49 | History & Physical-Hospitalist ---
History of Present Illness HPI/Chief Complaint Nieves Cavazos is an 85 year old female with PMH HTN, T2DM, HLD, GERD, dementia, RLS, who presented after a fall at her care home. She was found to have a distal femur fracture. She was seen after returning from the OR in the ICU. She developed hypotension and AFib with RVR. Dr. Russell was also at the bedside and was starting her on IV amiodarone and obtaining an echocardiogram. She is still under the effects of sedation and is unable to provide any history. Source: RN/MD Exam Limitations: clinical condition Date Seen 10/13/21 Time Seen by a Provider: 11:10 Attending Physician David Bueno MD PCP Admitting Physician: Ruddy Gallegos MD Attending Physician: Ruddy Gallegos MD Referring Physician Date of Admission Oct 12, 2021 at 18:30 Home Medications & Allergies Home Medications Reviewed patient Home Medication Reconciliation performed by pharmacy medication reconciliations public health technician and/or nursing. Patients Allergies have been reviewed. Allergies Allergies Coded Allergies No Known Drug Allergies (Unverified10/12/21) Past Xmxveni-Xebvxv-Xnyjzh Hx Patient Social History Employed/Student: retired Tobacco Use?: No Use of E-Cig and/or Vaping dev: No Substance use?: No Alcohol Use?: No Pt feels they are or have been: No Immunizations Up To Date Tetanus Booster (TDap): Unknown Current Status status: No Advance Directives: No Communicates: Verbally Primary Language: Citizen Of [place] Preferred Spoken Language: Citizen Of [place] Is interpretation needed?: No Implanted or Applied Medical D: None Past Medical History Currently Using CPAP: No Currently Using BIPAP: No High Cholesterol, Hypertension Diabetes, Insulin dep Family Medical History Other Conditions/Hx (Unable to obtain, pt non-communicative and no family available) Review of Systems Constitutional: see HPI Physical Exam Physical Exam Vital Signs Vital Signs - First Documented 10/12/21 19:51 Temp 36.2 Capillary Refill : Less Than 3 Seconds Height, Weight, BMI Height: '" Weight: lbs. oz. kg; 32.10 BMI Method: General Appearance: No Apparent Distress, Obese Respiratory: No Respiratory Distress, Decreased Breath Sounds Cardiovascular: Irregularly Irregular, Tachycardia Gastrointestinal: Normal Bowel Sounds, Soft Extremity: Normal Inspection, Pedal Edema Neurologic/Psychiatric: Other (lethargic, unresponsive) Skin: Warm/Dry, Pallor Results Results/Procedures Labs Laboratory Tests 10/12/21 18:07 10/13/21 06:04 10/13/21 12:19 Patient resulted labs reviewed. Imaging: Reviewed Imaging Films, Reviewed Imaging Report Assessment/Plan Admission Diagnosis Left distal femur fracture Admission Status: Inpatient Order (span 2 midnights) Reason for Inpatient Admission: Surgery Assessment and Plan Closed left distal femur fracture Fall Orthopedic surgery consulted s/p surgical repair 10/13 Pain regimen Bowel regimen Incentive spirometry PT/OT AFib with RVR Postprocedural hypotension Cardiology consulted Started on Amiodarone BPs improved T2DM with hyperglycemia Unclear home regimen Begin Levemir 20 units tonight Sliding scale insulin HTN HLD GERD Dementia RLS Resume home meds once med rec completed Critical Care Critically Ill Patient Diagnosis/Problems Diagnosis/Problems (1) Closed fracture of distal end of left femur Status: Acute Qualifiers: Encounter type: initial encounter (2) Fall Status: Acute Qualifiers: Encounter type: initial encounter Qualified Codes: W19.XXXA - Unspecified fall, initial encounter (3) Atrial fibrillation with rapid ventricular response Status: Acute (4) Hypotension Status: Acute Qualifiers: Hypotension type: postprocedural hypotension Qualified Codes: I95.81 - Postprocedural hypotension RUDDY GALLEGOS MD Oct 13, 2021 16:49
--- NOTE | 2021-10-13 17:10 | OPERATIVE REPORT ---
DATE OF SERVICE: 10/13/2021 PREOPERATIVE DIAGNOSIS: Closed displaced left distal femoral shaft fracture. POSTOPERATIVE DIAGNOSIS: Closed displaced left distal femoral shaft fracture. PROCEDURE: Open reduction and internal fixation of left distal femur. SURGEON: Keo Garcia MD LIGHT RAIL VEHICLE OPERATOR: Kalyan Eisenberg, who assisted throughout the procedure and closed the incision. ANESTHESIA: General endotracheal by Shobha Cooley CRNA. TOURNIQUET TIME: Not applicable. ESTIMATED BLOOD LOSS: 500 mL. DRAINS: None. COMPLICATIONS: None. POSTOPERATIVE PLAN: Strict nonweightbearing left lower extremity. The patient was transferred to recovery room awake and stable condition. STATEMENT OF MEDICAL NECESSITY: The patient is an 85-year-old [facility] resident, who sustained an injury at her [facility] yesterday. She was transferred only weightbearing status, but somehow fell. She was found to have a closed markedly displaced comminuted left distal femoral shaft fracture. The patient is essentially nonambulator, but due to the displaced nature of the fracture, it was elected to proceed with surgical intervention. DESCRIPTION OF PROCEDURE: After risks and benefits of the procedure were discussed and questions were answered, an informed consent was signed and placed on chart. The operative site was confirmed in the preoperative holding area initialed by the surgeon. The patient was then transferred to the operating room and after adequate levels of general endotracheal anesthetic were obtained, a timeout was called, confirming the operative site. The left lower extremity was prepped and draped in the usual sterile fashion. A longitudinal incision was made over the distal lateral thigh. The iliotibial band was incised in line with the incision. The fracture site was exposed and there were six fragments. Her bone quality was extraordinarily poor. The fracture was brought to where there was bony apposition although due to the marked comminution, it was not fully anatomic, but felt to be in an adequate alignment. A Synthes distal femoral plate was then placed with four locking screws placed distally with good purchase and four cortical screws placed proximally in the shaft with good purchase. There was a large butterfly fragment medially with attempted to lag this to plate; however, the bone quality was so poor that it would not hold fixation. The fluoroscopy in the AP, lateral and oblique views revealed adequate reduction of the fracture. The fracture was stable. Under direct visualization with knee range of motion and with varus and valgus stress as well as while viewing fluoroscopically. Wound was irrigated with 3 liters of pulse lavage. Iliotibial band was closed in a running fashion with #1 Vicryl. Wound was further irrigated, 2-0 Vicryl was used in subcutaneous tissue, dylan used on the skin. Incision was infiltrated with plain Marcaine and soft dressing was applied and the patient was transferred to the recovery room awake and in stable condition. Job ID: [id number] DocumentID: [id number] Dictated Date: 10/13/2021 10:44:32 Engraver Picture Date: 10/13/2021 17:09:45 Dictated By: KEO GARCIA MD
[2021-10-13] MEDS ORDERED: PANTOPRAZOLE 40 MG (PROTONIX) VIAL IV ONE (18:00)
[2021-10-13 18:21] LABS: HEMATOCRIT 28 % (35-52); HEMOGLOBIN 8.8 g/dL (11.5-16.0); MEAN CORPUSCULAR HEMOGLOBIN 31 pg (25-34); MEAN CORPUSCULAR HGB CONC 32 g/dL (32-36); MEAN CORPUSCULAR VOLUME 97 fL (80-99); MEAN PLATELET VOLUME 10.8 fL (9.0-12.2); PLATELET COUNT 236 10^3/uL (130-400); WHITE BLOOD COUNT 23.7 10^3/uL (4.3-11.0)
[2021-10-13] MEDS: ALBUMIN 25% 25 GM/100 ML 100 ML IV SCH ×2 (18:50→20:35)
[2021-10-13] MEDS ORDERED: inSUlin ASPART (NovoLOG) 1 UNIT/0.01 ML (CHARGE PER UNIT) SC SCH (21:00)
[2021-10-14] VITALS (30 sets, daily range): BP systolic 108–172; BP diastolic 34–118
[2021-10-14] MEDS: HYDROcodone/APAP 5 MG/325 MG (LORTAB) TAB PO PRN (01:32)
[2021-10-14] MEDS ORDERED: ALBUMIN 5% 12.5 GM/250 ML 250 ML IV ONE (02:15)
[2021-10-14] MEDS: fentaNYL INJ 100 MCG/2 ML AMP IV PRN ×2 (02:30→16:06)
[2021-10-14] MEDS: ceFAZolin 2 GM IV Premixed 50 ML IV SCH (03:42)
[2021-10-14] MEDS ORDERED: ZOLPIDEM 5 MG (AMBIEN) TAB PO ONE (03:45)
[2021-10-14 04:06] LABS: BASOPHILS % (AUTO) 0 % (0-10); EOSINOPHILS % (AUTO) 0 % (0-10); LYMPHOCYTES # (AUTO) 2.8 10^3/uL (1.0-4.0); LYMPHOCYTES % (AUTO) 18 % (12-44); MEAN CORPUSCULAR HEMOGLOBIN 31 pg (25-34); MEAN CORPUSCULAR HGB CONC 32 g/dL (32-36); MEAN CORPUSCULAR VOLUME 96 fL (80-99); MEAN PLATELET VOLUME 10.3 fL (9.0-12.2); MONOCYTES # (AUTO) 1.7 10^3/uL (0.0-1.0); MONOCYTES % (AUTO) 11 % (0-12); NEUTROPHILS # (AUTO) 10.8 10^3/uL (1.8-7.8); NEUTROPHILS % (AUTO) 70 % (42-75); PLATELET COUNT 146 10^3/uL (130-400); WHITE BLOOD COUNT 15.5 10^3/uL (4.3-11.0)
[2021-10-14 04:22] LABS: POTASSIUM 4.2 MMOL/L (3.6-5.0)
[2021-10-14 04:23] LABS: CALCIUM 7.8 MG/DL (8.5-10.1)
[2021-10-14 04:25] LABS: TOTAL PROTEIN 4.4 GM/DL (6.4-8.2)
[2021-10-14 04:26] LABS: BILIRUBIN,TOTAL 0.6 MG/DL (0.1-1.0)
[2021-10-14 04:27] LABS: HEMATOCRIT 18 % (35-52); HEMOGLOBIN 5.6 g/dL (11.5-16.0)
[2021-10-14 04:28] LABS: CREATININE SERUM 1.05 MG/DL (0.60-1.30); PHOSPHORUS 2.2 MG/DL (2.3-4.7)
[2021-10-14 04:31] LABS: MAGNESIUM 1.7 MG/DL (1.6-2.4)
[2021-10-14] MEDS ORDERED: NS IV 500 ML 500 ML IV SCH ×2 (04:45)
[2021-10-14] MEDS: inSUlin ASPART (NovoLOG) 1 UNIT/0.01 ML (CHARGE PER UNIT) SC SCH ×4 (04:53→20:11)
[2021-10-14] MEDS: POTASSIUM CL 10MEQ/50ML IVPB 50 ML IV SCH (04:55)
[2021-10-14] MEDS: KCL 20 MEQ TAB (K-DUR) PO SCH (04:55)
[2021-10-14] MEDS: MAGNESIUM 1 GM/100 ML IVPB 100 ML IV SCH (04:56)
[2021-10-14] MEDS: NOREPINEPHRINE 8 MG/250 ML 250 ML IV SCH ×2 (05:01→20:18)
--- NOTE | 2021-10-14 08:05 | Progress Note ---
Standard Progress Note Progress Notes/Assess & Plan Date Seen by a Provider: Oct 14, 2021 Time Seen by a Provider: 08:04 Progress/Assessment & Plan In ICU Vital Signs Date Time Temp Pulse Resp B/P (MAP) Pulse Ox O2 Delivery O2 Flow Rate FiO2 10/14/21 07:55 36.0 10/14/21 07:48 63 10/14/21 07:21 36.5 71 18 129/45 98 Room Air 10/14/21 06:11 66 15 108/36 (60) 94 Room Air 10/14/21 05:48 36.0 71 18 111/40 98 Room Air 10/14/21 05:33 36.4 72 16 122/39 73 Room Air 10/14/21 05:03 36.1 10/14/21 05:01 70 123/45 10/14/21 05:00 75 16 113/56 (65) 96 Room Air 10/14/21 04:03 36.6 10/14/21 04:00 98 Room Air 10/14/21 04:00 70 18 123/45 (66) 97 Room Air 10/14/21 03:00 89 24 129/50 (67) 98 Room Air 10/14/21 02:00 75 20 119/55 (83) 99 Room Air 10/14/21 01:00 80 10/14/21 01:00 77 132/44 (79) 99 Room Air 10/14/21 00:02 36.8 10/14/21 00:00 99 Room Air 10/14/21 00:00 87 14 123/47 (90) 100 Room Air 10/13/21 23:00 90 13 125/47 (68) 99 Room Air 10/13/21 22:00 61 17 132/52 (66) 98 Room Air 10/13/21 21:00 89 12 108/48 (61) 98 Room Air 10/13/21 20:00 98 Room Air 10/13/21 20:00 86 27 80/53 (59) 98 Room Air 10/13/21 19:46 35.9 Room Air 10/13/21 19:42 35.5 10/13/21 19:00 76 20 90/51 (60) 100 High Flow N/C 3.00 10/13/21 19:00 71 10/13/21 18:00 80 19 96/60 (72) 100 High Flow N/C 3.00 10/13/21 17:20 98 High Flow N/C 3.00 10/13/21 17:00 High Flow N/C 15.00 10/13/21 17:00 90 31 97/49 (65) 97 OxyMask 15.00 10/13/21 16:00 81 20 112/68 (83) 98 OxyMask 15.00 10/13/21 15:48 35.8 10/13/21 15:00 90 14 103/64 (77) 98 OxyMask 15.00 10/13/21 14:00 89 14 131/110 (117) 98 OxyMask 15.00 10/13/21 13:00 84 16 129/75 (93) 100 OxyMask 15.00 10/13/21 13:00 96 10/13/21 12:35 104 70/46 10/13/21 12:00 89 15 119/100 (106) 100 OxyMask 15.00 10/13/21 11:45 High Flow N/C 15.00 10/13/21 11:35 OxyMask 15 10/13/21 11:30 36.2 16 99/40 (59) 100 OxyMask 15 10/13/21 11:25 99/40 10/13/21 11:20 16 83/31 (48) 100 OxyMask 15 10/13/21 11:20 OxyMask 15 10/13/21 11:12 104 10/13/21 11:10 20 108/41 (63) 100 OxyMask 15 10/13/21 11:05 20 57/46 (50) 99 OxyMask 15 10/13/21 11:05 OxyMask 15 10/13/21 11:00 120 30 90/66 (74) 94 OxyMask 15.00 10/13/21 11:00 20 112/99 (103) 100 OxyMask 15 10/13/21 10:55 16 87/67 (74) 96 OxyMask 15 10/13/21 10:50 OxyMask 15 10/13/21 10:45 16 67/53 (58) 98 OxyMask 15 10/13/21 10:37 OxyMask 15 10/13/21 10:37 36.6 16 75/35 (48) 100 OxyMask 15 I & O 10/14/21 07:00 Intake Total 3777 ml Output Total 560 ml Balance 3217 ml Laboratory Tests Test 10/13/21 10:44 10/13/21 11:07 10/13/21 12:19 10/13/21 16:03 Range/Units Glucometer 356 H 329 H 70-110 MG/DL Blood Gas Puncture Site RT RAD Blood Gas Patient Temperature 35.3 Arterial Blood pH 7.36 L 7.37-7.43 Arterial Blood Partial Pressure CO2 36 35-45 MMHG Arterial Blood Partial Pressure O2 168 H 79-93 MMHG Arterial Blood HCO3 20 L 23-27 MMOL/L Arterial Blood Total CO2 21.3 21.0-31.0 MMOL/L Arterial Blood Oxygen Saturation 100 94-100 % Arterial Blood Base Excess -4.8 L -2.5-2.5 MMOL/L Bc Test YES-POS Blood Gas Ventilator Setting NO Blood Gas Inspired Oxygen NA White Blood Count 20.3 H 4.3-11.0 10^3/uL Red Blood Count 2.74 L 3.80-5.11 10^6/uL Hemoglobin 8.6 #L 11.5-16.0 g/dL Hematocrit 26 L 35-52 % Mean Corpuscular Volume 96 80-99 fL Mean Corpuscular Hemoglobin 31 25-34 pg Mean Corpuscular Hemoglobin Concent 33 32-36 g/dL Red Cell Distribution Width 12.6 10.0-14.5 % Platelet Count 184 130-400 10^3/uL Mean Platelet Volume 10.8 9.0-12.2 fL Immature Granulocyte % (Auto) 1 % Neutrophils (%) (Auto) 90 H 42-75 % Lymphocytes (%) (Auto) 3 L 12-44 % Monocytes (%) (Auto) 7 0-12 % Eosinophils (%) (Auto) 0 0-10 % Basophils (%) (Auto) 0 0-10 % Neutrophils # (Auto) 18.2 H 1.8-7.8 10^3/uL Lymphocytes # (Auto) 0.6 L 1.0-4.0 10^3/uL Monocytes # (Auto) 1.3 H 0.0-1.0 10^3/uL Eosinophils # (Auto) 0.0 0.0-0.3 10^3/uL Basophils # (Auto) 0.0 0.0-0.1 10^3/uL Immature Granulocyte # (Auto) 0.2 H 0.0-0.1 10^3/uL Sodium Level 135 135-145 MMOL/L Potassium Level 5.3 H 3.6-5.0 MMOL/L Chloride Level 102 98-107 MMOL/L Carbon Dioxide Level 19 L 21-32 MMOL/L Anion Gap 14 5-14 MMOL/L Blood Urea Nitrogen 18 7-18 MG/DL Creatinine 1.04 0.60-1.30 MG/DL Estimat Glomerular Filtration Rate 52 BUN/Creatinine Ratio 17 Glucose Level 374 H 70-105 MG/DL Calcium Level 7.7 L 8.5-10.1 MG/DL Test 10/13/21 17:18 10/13/21 18:14 10/13/21 20:27 10/14/21 03:40 Range/Units Stool Occult Blood Immunoassay POSITIVE H NEGATIVE White Blood Count 23.7 H 15.5 H 4.3-11.0 10^3/uL Red Blood Count 2.88 L 1.82 L 3.80-5.11 10^6/uL Hemoglobin 8.8 L 5.6 #*L 11.5-16.0 g/dL Hematocrit 28 L 18 *L 35-52 % Mean Corpuscular Volume 97 96 80-99 fL Mean Corpuscular Hemoglobin 31 31 25-34 pg Mean Corpuscular Hemoglobin Concent 32 32 32-36 g/dL Red Cell Distribution Width 12.6 12.5 10.0-14.5 % Platelet Count 236 146 130-400 10^3/uL Mean Platelet Volume 10.8 10.3 9.0-12.2 fL Glucometer 321 H 70-110 MG/DL Immature Granulocyte % (Auto) 1 % Neutrophils (%) (Auto) 70 42-75 % Lymphocytes (%) (Auto) 18 12-44 % Monocytes (%) (Auto) 11 0-12 % Eosinophils (%) (Auto) 0 0-10 % Basophils (%) (Auto) 0 0-10 % Neutrophils # (Auto) 10.8 H 1.8-7.8 10^3/uL Lymphocytes # (Auto) 2.8 1.0-4.0 10^3/uL Monocytes # (Auto) 1.7 H 0.0-1.0 10^3/uL Eosinophils # (Auto) 0.0 0.0-0.3 10^3/uL Basophils # (Auto) 0.0 0.0-0.1 10^3/uL Immature Granulocyte # (Auto) 0.2 H 0.0-0.1 10^3/uL Sodium Level 134 L 135-145 MMOL/L Potassium Level 4.2 3.6-5.0 MMOL/L Chloride Level 102 98-107 MMOL/L Carbon Dioxide Level 23 21-32 MMOL/L Anion Gap 9 5-14 MMOL/L Blood Urea Nitrogen 22 H 7-18 MG/DL Creatinine 1.05 0.60-1.30 MG/DL Estimat Glomerular Filtration Rate 51 BUN/Creatinine Ratio 21 Glucose Level 98 70-105 MG/DL Calcium Level 7.8 L 8.5-10.1 MG/DL Corrected Calcium 8.6 8.5-10.1 MG/DL Phosphorus Level 2.2 L 2.3-4.7 MG/DL Magnesium Level 1.7 1.6-2.4 MG/DL Total Bilirubin 0.6 0.1-1.0 MG/DL Aspartate Amino Transf (AST/SGOT) 20 5-34 U/L Alanine Aminotransferase (ALT/SGPT) 7 0-55 U/L Alkaline Phosphatase 48 40-136 U/L Total Protein 4.4 L 6.4-8.2 GM/DL Albumin 3.0 L 3.2-4.5 GM/DL Test 10/14/21 05:56 10/14/21 06:36 Range/Units Glucometer 79 82 70-110 MG/DL LLE--dressing intact pulses equal s/p L femur ORIF PT when stable SARAH GARCIA MD Oct 14, 2021 08:05
[2021-10-14] MEDS: ENOXAPARIN INJECTION 30 MG/0.3 ML SYR SC SCH ×2 (08:12→20:15)
--- NOTE | 2021-10-14 08:20 | Cardiology Progress Note ---
Subjective Date Seen by Provider: Oct 14, 2021 Time Seen by Provider: 08:19 Subjective/Events-last exam Patient was seen at bedside, laying down comfortably, feeling better Heart rate is better Review of Systems General: No Chills, No Night Sweats; Fatigue; No Malaise, No Appetite, No Other HEENT: No Head Aches, No Visual Changes, No Eye Pain, No Ear Pain, No Dyspha cynthia, No Sinus Congestion, No Post Nasal Drip, No Sore Throat, No Other Pulmonary: No Dyspnea, No Cough, No Pleuritic Chest Pain, No Other Cardiovascular: No: Chest Pain, Palpitations, Orthopnea, Paroxysmal Noc. Dyspnea, Edema, Lt Headedness, Other Objective-Cardiology Exam Last Set of Vital Signs Vital Signs 10/14/21 08:09 Temp 36.5 Pulse 76 Resp 12 B/P (MAP) 130/40 Pulse Ox 97 O2 Delivery Room Air I&O Intake and Output 10/14/21 00:00 Intake Total 3052 ml Output Total 415 ml Balance 2637 ml Intake Oral 340 ml IV Total 2712 ml Output Urine Total 415 ml General: Alert, Oriented X3, Cooperative HEENT: Atraumatic, PERRLA Neck: Supple, No JVD, No Thyromegaly Lungs: Clear to Auscultation, Normal Air Movement Heart: Normal S1, Normal S2, No Murmurs, Other (Atrial fibrillation) Abdomen: Normal Bowel Sounds, Soft, No Tenderness, No Hepatosplenomegaly, No Masses Extremities: No Clubbing, No Cyanosis, No Edema, Normal Pulses, No Tenderness/Swelling Skin: No Rashes, No Breakdown, No Significant Lesion Neuro: Normal Speech, Normal Tone, Sensation Intact Psych/Mental Status: Mental Status NL, Mood NL Results Lab Laboratory Tests 10/13/21 12:19 10/13/21 18:14 10/14/21 03:40 A/P-Cardiology Admission Diagnosis Atrial fibrillation Tachycardia Hypotension Hip fracture Assessment/Plan Atrial fibrillation with rapid ventricular response. Patient probably has history of chronic atrial fibrillation, has been maintained on Eliquis as an outpatient. Heart rate is better controlled, blood pressure is more stable I will start her on oral digoxin and monitor Anemia, postsurgery, will require blood transfusion Monitor H&H Planning to initiate oral anticoagulation once her H&H are more stable. Hypotensive shock, probably combination of atrial fibrillation and hypovolemia and recovery from anesthesia. Blood pressure is better. Continue to monitor Left hip fracture, status post surgical repair done on April 14, 2022. Recovering slowly. Shortness of breath, maintained on oxygen. Diabetes mellitus, maintained on insulin as an outpatient. Dementia. PALOMA MACIAS MD Oct 14, 2021 08:20
--- NOTE | 2021-10-14 08:43 | Progress Note - Hospitalist ---
Subjective HPI/CC On Admission Date Seen by Provider: Oct 14, 2021 Time Seen by Provider: 08:38 Nieves Cavazos is an 85 year old female with PMH HTN, T2DM, HLD, GERD, dementia, RLS, who presented after a fall at her residential. She was found to have a distal femur fracture. She was seen after returning from the OR in the ICU. She developed hypotension and AFib with RVR. Dr. Russell was also at the bedside and was starting her on IV amiodarone and obtaining an echocardiogram. She is still under the effects of sedation and is unable to provide any history. Subjective/Events-last exam Pt somewhat sleepy but awakes easily. Did not speak but shook her head yes and no. No complaints. Nods when asked if she is feeling better. Discussed with RN who reports UOP better since albumin. Objective Exam Vital Signs Vital Signs Date Time Temp Pulse Resp B/P (MAP) Pulse Ox O2 Delivery O2 Flow Rate FiO2 10/14/21 08:24 36.5 60 18 133/51 96 Room Air 10/13/21 19:00 3.00 Capillary Refill : Less Than 3 Seconds General Appearance: No Apparent Distress, Chronically ill, Obese Respiratory: Lungs Clear, No Respiratory Distress Cardiovascular: Irregularly Irregular Gastrointestinal: Normal Bowel Sounds, Soft Neurologic/Psychiatric: Alert, Oriented x3 Results/Procedures Lab Laboratory Tests 10/13/21 12:19 10/13/21 18:14 10/14/21 03:40 Patient resulted labs reviewed. Imaging: Reviewed Imaging Films, Reviewed Imaging Report Assessment/Plan Assessment and Plan Assess & Plan/Chief Complaint AFib with RVR and shock Anemia Cardiology consulted- discussed with Dr Russell this morning- pt has longstanding a fib and holding anticoag Amiodarone Currently on Levophed- wean as able Shock is likely mulifactorial from blood loss and cardiogenic Lovenox held for anemia 2 units of blood ordered, 2 on hold Repeat H&H after transfusions Closed left distal femur fracture Fall Orthopedic surgery consulted s/p surgical repair 10/13 Pain regimen Bowel regimen Incentive spirometry PT/OT when able T2DM with hyperglycemia Decrease Levemir slightly Sliding scale insulin HTN HLD GERD Dementia RLS Resume home meds once med rec complete as as able with hypotension Critical Care Critically Ill Patient Diagnosis/Problems Diagnosis/Problems (1) Normocytic anemia (2) Dementia (3) Hypertension (4) Shock (5) Atrial fibrillation with rapid ventricular response Status: Acute (6) Closed fracture of distal end of left femur Status: Acute Qualifiers: Encounter type: initial encounter MARZENA DAVIES MD Oct 14, 2021 08:43
[2021-10-14] MEDS: PANTOPRAZOLE 40 MG (PROTONIX) VIAL IV SCH ×2 (08:54→20:15)
[2021-10-14] MEDS: DIGOXIN 0.125 MG (LANOXIN) TAB PO SCH (08:54)
[2021-10-14] MEDS ORDERED: CHOL10004 PO (09:41)
[2021-10-14] MEDS ORDERED: FERR324T4 PO (09:41)
[2021-10-14] MEDS ORDERED: ATOR40TA70 PO (09:41)
[2021-10-14] MEDS ORDERED: SNN187T PO (09:41)
[2021-10-14] MEDS ORDERED: POLY17PO6 PO (09:41)
[2021-10-14] MEDS ORDERED: ROPI0.5T4 PO (09:41)
[2021-10-14] MEDS ORDERED: CITA10TA9 PO (09:41)
[2021-10-14] MEDS ORDERED: DONE10TA41 PO (09:41)
[2021-10-14] MEDS ORDERED: GLIM2TAB4 PO (09:41)
[2021-10-14] MEDS ORDERED: ASPI-1238 PO (09:41)
[2021-10-14] MEDS ORDERED: FURO40TA4 PO (09:41)
[2021-10-14] MEDS ORDERED: MAGN400O7 PO (09:41)
[2021-10-14] MEDS ORDERED: PANT20TA18 PO (09:41)
[2021-10-14] MEDS ORDERED: ACET325T38 PO (09:41)
[2021-10-14] MEDS ORDERED: MAGN400T39 PO (09:41)
[2021-10-14] MEDS ORDERED: MEMA10TA57 PO (09:41)
[2021-10-14] MEDS ORDERED: APIX5TAB PO (09:41)
[2021-10-14] MEDS ORDERED: MENT118G TP (09:41)
[2021-10-14] MEDS ORDERED: MULT-593 PO (09:41)
[2021-10-14] MEDS ORDERED: SPIR25TA5 PO (09:41)
[2021-10-14] MEDS ORDERED: INSU100V SQ ×2 (09:41)
[2021-10-14] MEDS ORDERED: POTA10TA37 PO (09:41)
[2021-10-14] MEDS ORDERED: INSU100V SC (09:41)
[2021-10-14] MEDS ORDERED: INSU100V6 SC (09:41)
--- NOTE | 2021-10-14 10:40 | Tele-ICU Progress Note ---
Subjective Date Seen by a Provider: Oct 14, 2021 Time Seen by a Provider: 10:40 Subjective/Events-last exam (Tele-ICU Physician , Progress Note ) Available chart/ vitals / labs / Images reviewed Video assessment done using teleICU camera, rest of exam as per RN Discussed with RN , EXAM PER RN Events overnight : Afebrile FiO2 - ra I/O = Drips: NS 100, Pressors: LEVO 0.5 Consultants: Hospital course: A/P ABLA - post op , no other sourse of bleeding currently suspected - being transfused 2U prbc - follow aHb Hemorrhagic shock - on levo -follow post transfusion , reassess A fib RVR - -amio gtt .05 , dig po - off AC with anemia s/p L femur ORIF -as per sx DM - ISS Lines : L IJ (Central Line Necessity Reviewed) Su: OG: Nutrition: Analgesia: Anxiety/ delirium VTE Prophylaxis: scd Stress Ulcer Prophylaxis: na Plans in collaboration with bedside consultants and IM MDs. Discussed with RN to reach out if any questions or concerns A total of 33 minutes of critical care time was devoted to this patient today, required to treat and/or prevent further deterioration of critical care condition ( as above) . Sepsis Event Evaluation Height, Weight, BMI Height: '" Weight: lbs. oz. kg; 32.10 BMI Method: Exam Exam Patient acknowledged, consented, and participated in this virtual visit which was conducted using real time audio/video Vital Signs Date Time Temp Pulse Resp B/P (MAP) Pulse Ox O2 Delivery O2 Flow Rate FiO2 10/14/21 10:22 36.5 71 20 148/46 97 Room Air 10/14/21 09:00 72 11 152/47 (82) 99 Room Air 10/14/21 08:24 36.5 60 18 133/51 96 Room Air 10/14/21 08:22 96 Room Air 10/14/21 08:09 36.5 76 12 130/40 97 Room Air 10/14/21 08:00 75 14 123/41 (68) 97 Room Air 10/14/21 07:55 36.0 10/14/21 07:48 63 10/14/21 07:21 36.5 71 18 129/45 98 Room Air 10/14/21 07:00 56 11 134/40 (71) 96 Room Air 10/14/21 06:11 66 15 108/36 (60) 94 Room Air 10/14/21 05:48 36.0 71 18 111/40 98 Room Air 10/14/21 05:33 36.4 72 16 122/39 73 Room Air 10/14/21 05:03 36.1 10/14/21 05:01 70 123/45 10/14/21 05:00 75 16 113/56 (65) 96 Room Air 10/14/21 04:03 36.6 10/14/21 04:00 98 Room Air 10/14/21 04:00 70 18 123/45 (66) 97 Room Air 10/14/21 03:00 89 24 129/50 (67) 98 Room Air 10/14/21 02:00 75 20 119/55 (83) 99 Room Air 10/14/21 01:00 80 10/14/21 01:00 77 132/44 (79) 99 Room Air 10/14/21 00:02 36.8 10/14/21 00:00 99 Room Air 10/14/21 00:00 87 14 123/47 (90) 100 Room Air 10/13/21 23:00 90 13 125/47 (68) 99 Room Air 10/13/21 22:00 61 17 132/52 (66) 98 Room Air 10/13/21 21:00 89 12 108/48 (61) 98 Room Air 10/13/21 20:00 98 Room Air 10/13/21 20:00 86 27 80/53 (59) 98 Room Air 10/13/21 19:46 35.9 Room Air 10/13/21 19:42 35.5 10/13/21 19:00 76 20 90/51 (60) 100 High Flow N/C 3.00 10/13/21 19:00 71 10/13/21 18:00 80 19 96/60 (72) 100 High Flow N/C 3.00 10/13/21 17:20 98 High Flow N/C 3.00 10/13/21 17:00 High Flow N/C 15.00 10/13/21 17:00 90 31 97/49 (65) 97 OxyMask 15.00 10/13/21 16:00 81 20 112/68 (83) 98 OxyMask 15.00 10/13/21 15:48 35.8 10/13/21 15:00 90 14 103/64 (77) 98 OxyMask 15.00 10/13/21 14:00 89 14 131/110 (117) 98 OxyMask 15.00 10/13/21 13:00 84 16 129/75 (93) 100 OxyMask 15.00 10/13/21 13:00 96 10/13/21 12:35 104 70/46 10/13/21 12:00 89 15 119/100 (106) 100 OxyMask 15.00 10/13/21 11:45 High Flow N/C 15.00 10/13/21 11:35 OxyMask 15 10/13/21 11:30 36.2 16 99/40 (59) 100 OxyMask 15 10/13/21 11:25 99/40 10/13/21 11:20 16 83/31 (48) 100 OxyMask 15 10/13/21 11:20 OxyMask 15 10/13/21 11:12 104 10/13/21 11:10 20 108/41 (63) 100 OxyMask 15 10/13/21 11:05 20 57/46 (50) 99 OxyMask 15 10/13/21 11:05 OxyMask 15 10/13/21 11:00 120 30 90/66 (74) 94 OxyMask 15.00 10/13/21 11:00 20 112/99 (103) 100 OxyMask 15 10/13/21 10:55 16 87/67 (74) 96 OxyMask 15 10/13/21 10:50 OxyMask 15 10/13/21 10:45 16 67/53 (58) 98 OxyMask 15 I & O 10/14/21 07:00 Intake Total 3777 ml Output Total 560 ml Balance 3217 ml Height & Weight Height: '" Weight: lbs. oz. kg; 32.10 BMI Method: General Appearance: No Apparent Distress, Chronically ill, Obese HEENT: PERRL/EOMI, TMs Normal, Normal ENT Inspection, Pharynx Normal, Moist Mucous Membranes Neck: Full Range of Motion, Normal Inspection, Non Tender, Supple, Carotid Bruit Respiratory: Lungs Clear, No Respiratory Distress Cardiovascular: Irregularly Irregular Capillary Refill: Less Than 3 Seconds Peripheral Pulses: 2+ Radial Pulses (R), 2+ Radial Pulses (L) Gastrointestinal: normal bowel sounds, non tender, soft Extremity: Normal Inspection, Pedal Edema Neurologic/Psychiatric: Alert, Oriented x3 Skin: Warm/Dry, Pallor Lymphatic: No Adenopathy Results Lab Laboratory Tests 10/12/21 18:07 10/13/21 06:04 10/13/21 12:19 10/13/21 18:14 10/14/21 03:40 Assessment/Plan Assessment/Plan 1 DUDLEY TODD MD Oct 14, 2021 10:40
--- NOTE | 2021-10-14 10:46 | Anesthesia-General Post-Op ---
General Patient Condition Mental Status/LOC: Same as Preop Cardiovascular: Satisfactory Nausea/Vomiting: Absent Respiratory: Satisfactory Pain: Controlled Complications: Absent Post Op Complications Complications None Follow Up Care/Instructions Patient Instructions None needed. Anesthesia/Patient Condition Patient Condition Patient is doing well, no complaints, stable vital signs, no apparent adverse anesthesia problems. No complications reported per nursing. ELANA CRUZ CRNA Oct 14, 2021 10:46
[2021-10-14] MEDS: NS IV 1000 ML 1,000 ML IV SCH ×2 (12:52→20:18)
[2021-10-14 12:58] LABS: HEMOGLOBIN 8.4 g/dL (11.5-16.0)
--- NOTE | 2021-10-14 18:47 | Progress Note - Surgery ---
Subjective Time Seen by a Provider: 15:19 Subjective/Events-last exam Surgery asked to re-evaluate pt because of anemia and hemoccult + Pt seen and examined, appears more stable today. Dr. Mohr stated she lost "gallons" during surgery. Pt with no complaints. Review of Systems General: Fatigue, Malaise Pulmonary: No Dyspnea, No Cough Cardiovascular: No: Chest Pain, Palpitations Objective Exam Vital Signs Date Time Temp Pulse Resp B/P (MAP) Pulse Ox O2 Delivery O2 Flow Rate FiO2 10/14/21 18:07 84 24 133/118 (123) 98 Room Air 10/14/21 17:00 63 14 151/49 (83) 95 Room Air 10/14/21 16:00 95 Room Air 10/14/21 16:00 83 27 125/54 (77) 97 Room Air 10/14/21 15:45 36.5 10/14/21 15:00 65 20 172/62 (98) 96 Room Air 10/14/21 14:00 66 19 123/75 (91) 97 Room Air 10/14/21 13:08 75 10/14/21 13:00 66 30 145/47 (79) 94 Room Air 10/14/21 12:00 57 16 149/57 (87) 95 Room Air 10/14/21 12:00 36.2 10/14/21 12:00 96 Room Air 10/14/21 11:00 61 17 146/53 (84) 97 Room Air 10/14/21 10:22 36.5 71 20 148/46 97 Room Air 10/14/21 10:00 58 15 147/56 (86) 96 Room Air 10/14/21 09:00 72 11 152/47 (82) 99 Room Air 10/14/21 08:24 36.5 60 18 133/51 96 Room Air 10/14/21 08:22 96 Room Air 10/14/21 08:09 36.5 76 12 130/40 97 Room Air 10/14/21 08:00 75 14 123/41 (68) 97 Room Air 10/14/21 07:55 36.0 10/14/21 07:48 63 10/14/21 07:21 36.5 71 18 129/45 98 Room Air 10/14/21 07:00 56 11 134/40 (71) 96 Room Air 10/14/21 06:11 66 15 108/36 (60) 94 Room Air 10/14/21 05:48 36.0 71 18 111/40 98 Room Air 10/14/21 05:33 36.4 72 16 122/39 73 Room Air 10/14/21 05:03 36.1 10/14/21 05:01 70 123/45 10/14/21 05:00 75 16 113/56 (65) 96 Room Air 10/14/21 04:03 36.6 10/14/21 04:00 98 Room Air 10/14/21 04:00 70 18 123/45 (66) 97 Room Air 10/14/21 03:00 89 24 129/50 (67) 98 Room Air 10/14/21 02:00 75 20 119/55 (83) 99 Room Air 10/14/21 01:00 80 10/14/21 01:00 77 132/44 (79) 99 Room Air 10/14/21 00:02 36.8 10/14/21 00:00 99 Room Air 10/14/21 00:00 87 14 123/47 (90) 100 Room Air 10/13/21 23:00 90 13 125/47 (68) 99 Room Air 10/13/21 22:00 61 17 132/52 (66) 98 Room Air 10/13/21 21:00 89 12 108/48 (61) 98 Room Air 10/13/21 20:00 98 Room Air 10/13/21 20:00 86 27 80/53 (59) 98 Room Air 10/13/21 19:46 35.9 Room Air 10/13/21 19:42 35.5 10/13/21 19:00 76 20 90/51 (60) 100 High Flow N/C 3.00 10/13/21 19:00 71 I & O 10/14/21 06:59 Intake Total 3777 ml Output Total 560 ml Balance 3217 ml Capillary Refill : Less Than 3 Seconds General Appearance: No Apparent Distress, Chronically ill, Obese HEENT: PERRL/EOMI, Moist Mucous Membranes Respiratory: Lungs Clear, No Respiratory Distress Cardiovascular: Irregularly Irregular Peripheral Pulses: 2+ Radial Pulses (R), 2+ Radial Pulses (L) Gastrointestinal: normal bowel sounds, non tender, soft Extremity: Normal Inspection, Pedal Edema Skin: Pallor Results Lab Laboratory Tests 10/13/21 20:27: Glucometer 321H 10/14/21 03:40: White Blood Count 15.5H, Red Blood Count 1.82L, Hemoglobin 5.6#*L, Hematocrit 18*L, Mean Corpuscular Volume 96, Mean Corpuscular Hemoglobin 31, Mean Corpuscular Hemoglobin Concent 32, Red Cell Distribution Width 12.5, Platelet Co unt 146, Mean Platelet Volume 10.3, Immature Granulocyte % (Auto) 1, Neutrophils (%) (Auto) 70, Lymphocytes (%) (Auto) 18, Monocytes (%) (Auto) 11, Eosinophils (%) (Auto) 0, Basophils (%) (Auto) 0, Neutrophils # (Auto) 10.8H, Lymphocytes # (Auto) 2.8, Monocytes # (Auto) 1.7H, Eosinophils # (Auto) 0.0, Basophils # (Auto) 0.0, Immature Granulocyte # (Auto) 0.2H, Sodium Level 134L, Potassium Level 4.2, Chloride Level 102, Carbon Dioxide Level 23, Anion Gap 9, Blood Urea Nitrogen 22H, Creatinine 1.05, Estimat Glomerular Filtration Rate 51, BUN/Creatinine Ratio 21, Glucose Level 98, Calcium Level 7.8L, Corrected Calcium 8.6, Phosphorus Level 2.2L, Magnesium Level 1.7, Total Bilirubin 0.6, Aspartate Amino Transf (AST/SGOT) 20, Alanine Aminotransferase (ALT/SGPT) 7, Alkaline Phosphatase 48, Total Protein 4.4L, Albumin 3.0L 10/14/21 05:56: Glucometer 79 10/14/21 06:36: Glucometer 82 10/14/21 10:23: Glucometer 112H 10/14/21 12:50: Hemoglobin 8.4#L, Hematocrit 25L 10/14/21 14:50: Lab Scanned Report Transfusion Reaction Form 10/14/21 15:47: Glucometer 84 Assessment/Plan Assessment/Plan Assessment/Plan Hemoccult + Anemia - Pt has anemia due to blood loss from surgery. I would not do anything about the hemoccult + result at this time. Allow pt to recover and then as outpt if she wants to have something done we can discuss it. Only thing to change this is if she has hematochezia or hematemesis. Hypotension AFib with RVR S/P ORIF of Femoral fx Central line triple lumen catheter placed for Pressors and other meds. Max medical and cardiac management. JOAN ISAAC DO Oct 14, 2021 18:47
[2021-10-14] MEDS: DONEPEZIL 10 MG (ARICEPT) TAB PO SCH (22:22)
[2021-10-14] MEDS: MEMANTINE 10 MG (NAMENDA) TABLET PO SCH (22:22)
[2021-10-14] MEDS: rOPINIRole 0.25 MG (REQUIP) TAB PO SCH (22:22)
[2021-10-15] VITALS (24 sets, daily range): BP systolic 104–156; BP diastolic 40–111
[2021-10-15 03:39] LABS: BASOPHILS % (AUTO) 0 % (0-10); EOSINOPHILS % (AUTO) 0 % (0-10); HEMATOCRIT 24 % (35-52); HEMOGLOBIN 7.8 g/dL (11.5-16.0); LYMPHOCYTES # (AUTO) 2.2 10^3/uL (1.0-4.0); LYMPHOCYTES % (AUTO) 17 % (12-44); MEAN CORPUSCULAR HEMOGLOBIN 31 pg (25-34); MEAN CORPUSCULAR HGB CONC 33 g/dL (32-36); MEAN CORPUSCULAR VOLUME 92 fL (80-99); MEAN PLATELET VOLUME 10.3 fL (9.0-12.2); MONOCYTES # (AUTO) 1.1 10^3/uL (0.0-1.0); MONOCYTES % (AUTO) 9 % (0-12); NEUTROPHILS # (AUTO) 9.4 10^3/uL (1.8-7.8); NEUTROPHILS % (AUTO) 72 % (42-75); PLATELET COUNT 153 10^3/uL (130-400); WHITE BLOOD COUNT 13.1 10^3/uL (4.3-11.0)
[2021-10-15 03:47] LABS: ALBUMIN 2.6 GM/DL (3.2-4.5); POTASSIUM 3.8 MMOL/L (3.6-5.0)
[2021-10-15 03:48] LABS: CALCIUM 7.5 MG/DL (8.5-10.1)
[2021-10-15] MEDS: POTASSIUM CL 10MEQ/50ML IVPB 50 ML IV SCH (03:48)
[2021-10-15 03:49] LABS: TOTAL PROTEIN 4.2 GM/DL (6.4-8.2)
[2021-10-15] MEDS: KCL 20 MEQ TAB (K-DUR) PO SCH (03:49)
[2021-10-15 03:53] LABS: CREATININE SERUM 0.62 MG/DL (0.60-1.30); PHOSPHORUS 1.2 MG/DL (2.3-4.7)
[2021-10-15 03:56] LABS: MAGNESIUM 1.8 MG/DL (1.6-2.4)
[2021-10-15] MEDS: MAGNESIUM 1 GM/100 ML IVPB 100 ML IV SCH (04:03)
[2021-10-15] MEDS: rOPINIRole 0.25 MG (REQUIP) TAB PO SCH ×3 (05:25→21:25)
[2021-10-15] MEDS: inSUlin ASPART (NovoLOG) 1 UNIT/0.01 ML (CHARGE PER UNIT) SC SCH ×4 (05:31→19:52)
[2021-10-15] MEDS: NS IV 1000 ML 1,000 ML IV SCH (05:32)
[2021-10-15] MEDS: fentaNYL INJ 100 MCG/2 ML AMP IV PRN (06:48)
--- NOTE | 2021-10-15 07:00 | Progress Note ---
Standard Progress Note Progress Notes/Assess & Plan Date Seen by a Provider: Oct 15, 2021 Time Seen by a Provider: 06:59 Progress/Assessment & Plan In ICU Vital Signs Date Time Temp Pulse Resp B/P (MAP) Pulse Ox O2 Delivery O2 Flow Rate FiO2 10/14/21 07:55 36.0 10/14/21 07:48 63 10/14/21 07:21 36.5 71 18 129/45 98 Room Air 10/14/21 06:11 66 15 108/36 (60) 94 Room Air 10/14/21 05:48 36.0 71 18 111/40 98 Room Air 10/14/21 05:33 36.4 72 16 122/39 73 Room Air 10/14/21 05:03 36.1 10/14/21 05:01 70 123/45 10/14/21 05:00 75 16 113/56 (65) 96 Room Air 10/14/21 04:03 36.6 10/14/21 04:00 98 Room Air 10/14/21 04:00 70 18 123/45 (66) 97 Room Air 10/14/21 03:00 89 24 129/50 (67) 98 Room Air 10/14/21 02:00 75 20 119/55 (83) 99 Room Air 10/14/21 01:00 80 10/14/21 01:00 77 132/44 (79) 99 Room Air 10/14/21 00:02 36.8 10/14/21 00:00 99 Room Air 10/14/21 00:00 87 14 123/47 (90) 100 Room Air 10/13/21 23:00 90 13 125/47 (68) 99 Room Air 10/13/21 22:00 61 17 132/52 (66) 98 Room Air 10/13/21 21:00 89 12 108/48 (61) 98 Room Air 10/13/21 20:00 98 Room Air 10/13/21 20:00 86 27 80/53 (59) 98 Room Air 10/13/21 19:46 35.9 Room Air 10/13/21 19:42 35.5 10/13/21 19:00 76 20 90/51 (60) 100 High Flow N/C 3.00 10/13/21 19:00 71 10/13/21 18:00 80 19 96/60 (72) 100 High Flow N/C 3.00 10/13/21 17:20 98 High Flow N/C 3.00 10/13/21 17:00 High Flow N/C 15.00 10/13/21 17:00 90 31 97/49 (65) 97 OxyMask 15.00 10/13/21 16:00 81 20 112/68 (83) 98 OxyMask 15.00 10/13/21 15:48 35.8 10/13/21 15:00 90 14 103/64 (77) 98 OxyMask 15.00 10/13/21 14:00 89 14 131/110 (117) 98 OxyMask 15.00 10/13/21 13:00 84 16 129/75 (93) 100 OxyMask 15.00 10/13/21 13:00 96 10/13/21 12:35 104 70/46 10/13/21 12:00 89 15 119/100 (106) 100 OxyMask 15.00 10/13/21 11:45 High Flow N/C 15.00 10/13/21 11:35 OxyMask 15 10/13/21 11:30 36.2 16 99/40 (59) 100 OxyMask 15 10/13/21 11:25 99/40 10/13/21 11:20 16 83/31 (48) 100 OxyMask 15 10/13/21 11:20 OxyMask 15 10/13/21 11:12 104 10/13/21 11:10 20 108/41 (63) 100 OxyMask 15 10/13/21 11:05 20 57/46 (50) 99 OxyMask 15 10/13/21 11:05 OxyMask 15 10/13/21 11:00 120 30 90/66 (74) 94 OxyMask 15.00 10/13/21 11:00 20 112/99 (103) 100 OxyMask 15 10/13/21 10:55 16 87/67 (74) 96 OxyMask 15 10/13/21 10:50 OxyMask 15 10/13/21 10:45 16 67/53 (58) 98 OxyMask 15 10/13/21 10:37 OxyMask 15 10/13/21 10:37 36.6 16 75/35 (48) 100 OxyMask 15 I & O 10/14/21 07:00 Intake Total 3777 ml Output Total 560 ml Balance 3217 ml Laboratory Tests Test 10/13/21 10:44 10/13/21 11:07 10/13/21 12:19 10/13/21 16:03 Range/Units Glucometer 356 H 329 H 70-110 MG/DL Blood Gas Puncture Site RT RAD Blood Gas Patient Temperature 35.3 Arterial Blood pH 7.36 L 7.37-7.43 Arterial Blood Partial Pressure CO2 36 35-45 MMHG Arterial Blood Partial Pressure O2 168 H 79-93 MMHG Arterial Blood HCO3 20 L 23-27 MMOL/L Arterial Blood Total CO2 21.3 21.0-31.0 MMOL/L Arterial Blood Oxygen Saturation 100 94-100 % Arterial Blood Base Excess -4.8 L -2.5-2.5 MMOL/L Bc Test YES-POS Blood Gas Ventilator Setting NO Blood Gas Inspired Oxygen NA White Blood Count 20.3 H 4.3-11.0 10^3/uL Red Blood Count 2.74 L 3.80-5.11 10^6/uL Hemoglobin 8.6 #L 11.5-16.0 g/dL Hematocrit 26 L 35-52 % Mean Corpuscular Volume 96 80-99 fL Mean Corpuscular Hemoglobin 31 25-34 pg Mean Corpuscular Hemoglobin Concent 33 32-36 g/dL Red Cell Distribution Width 12.6 10.0-14.5 % Platelet Count 184 130-400 10^3/uL Mean Platelet Volume 10.8 9.0-12.2 fL Immature Granulocyte % (Auto) 1 % Neutrophils (%) (Auto) 90 H 42-75 % Lymphocytes (%) (Auto) 3 L 12-44 % Monocytes (%) (Auto) 7 0-12 % Eosinophils (%) (Auto) 0 0-10 % Basophils (%) (Auto) 0 0-10 % Neutrophils # (Auto) 18.2 H 1.8-7.8 10^3/uL Lymphocytes # (Auto) 0.6 L 1.0-4.0 10^3/uL Monocytes # (Auto) 1.3 H 0.0-1.0 10^3/uL Eosinophils # (Auto) 0.0 0.0-0.3 10^3/uL Basophils # (Auto) 0.0 0.0-0.1 10^3/uL Immature Granulocyte # (Auto) 0.2 H 0.0-0.1 10^3/uL Sodium Level 135 135-145 MMOL/L Potassium Level 5.3 H 3.6-5.0 MMOL/L Chloride Level 102 98-107 MMOL/L Carbon Dioxide Level 19 L 21-32 MMOL/L Anion Gap 14 5-14 MMOL/L Blood Urea Nitrogen 18 7-18 MG/DL Creatinine 1.04 0.60-1.30 MG/DL Estimat Glomerular Filtration Rate 52 BUN/Creatinine Ratio 17 Glucose Level 374 H 70-105 MG/DL Calcium Level 7.7 L 8.5-10.1 MG/DL Test 10/13/21 17:18 10/13/21 18:14 10/13/21 20:27 10/14/21 03:40 Range/Units Stool Occult Blood Immunoassay POSITIVE H NEGATIVE White Blood Count 23.7 H 15.5 H 4.3-11.0 10^3/uL Red Blood Count 2.88 L 1.82 L 3.80-5.11 10^6/uL Hemoglobin 8.8 L 5.6 #*L 11.5-16.0 g/dL Hematocrit 28 L 18 *L 35-52 % Mean Corpuscular Volume 97 96 80-99 fL Mean Corpuscular Hemoglobin 31 31 25-34 pg Mean Corpuscular Hemoglobin Concent 32 32 32-36 g/dL Red Cell Distribution Width 12.6 12.5 10.0-14.5 % Platelet Count 236 146 130-400 10^3/uL Mean Platelet Volume 10.8 10.3 9.0-12.2 fL Glucometer 321 H 70-110 MG/DL Immature Granulocyte % (Auto) 1 % Neutrophils (%) (Auto) 70 42-75 % Lymphocytes (%) (Auto) 18 12-44 % Monocytes (%) (Auto) 11 0-12 % Eosinophils (%) (Auto) 0 0-10 % Basophils (%) (Auto) 0 0-10 % Neutrophils # (Auto) 10.8 H 1.8-7.8 10^3/uL Lymphocytes # (Auto) 2.8 1.0-4.0 10^3/uL Monocytes # (Auto) 1.7 H 0.0-1.0 10^3/uL Eosinophils # (Auto) 0.0 0.0-0.3 10^3/uL Basophils # (Auto) 0.0 0.0-0.1 10^3/uL Immature Granulocyte # (Auto) 0.2 H 0.0-0.1 10^3/uL Sodium Level 134 L 135-145 MMOL/L Potassium Level 4.2 3.6-5.0 MMOL/L Chloride Level 102 98-107 MMOL/L Carbon Dioxide Level 23 21-32 MMOL/L Anion Gap 9 5-14 MMOL/L Blood Urea Nitrogen 22 H 7-18 MG/DL Creatinine 1.05 0.60-1.30 MG/DL Estimat Glomerular Filtration Rate 51 BUN/Creatinine Ratio 21 Glucose Level 98 70-105 MG/DL Calcium Level 7.8 L 8.5-10.1 MG/DL Corrected Calcium 8.6 8.5-10.1 MG/DL Phosphorus Level 2.2 L 2.3-4.7 MG/DL Magnesium Level 1.7 1.6-2.4 MG/DL Total Bilirubin 0.6 0.1-1.0 MG/DL Aspartate Amino Transf (AST/SGOT) 20 5-34 U/L Alanine Aminotransferase (ALT/SGPT) 7 0-55 U/L Alkaline Phosphatase 48 40-136 U/L Total Protein 4.4 L 6.4-8.2 GM/DL Albumin 3.0 L 3.2-4.5 GM/DL Test 10/14/21 05:56 10/14/21 06:36 Range/Units Glucometer 79 82 70-110 MG/DL LLE--dressing intact pulses equal s/p L femur ORIF PT when stable Final Diagnosis better today Laboratory Tests Test 10/14/21 10:23 10/14/21 12:50 10/14/21 14:50 10/14/21 15:47 Range/Units Glucometer 112 H 84 70-110 MG/DL Hemoglobin 8.4 #L 11.5-16.0 g/dL Hematocrit 25 L 35-52 % Lab Scanned Report Transfusion Reaction Form [id number] Test 10/14/21 20:10 10/15/21 03:35 10/15/21 05:35 Range/Units Glucometer 135 H 74 70-110 MG/DL White Blood Count 13.1 H 4.3-11.0 10^3/uL Red Blood Count 2.55 L 3.80-5.11 10^6/uL Hemoglobin 7.8 L 11.5-16.0 g/dL Hematocrit 24 L 35-52 % Mean Corpuscular Volume 92 80-99 fL Mean Corpuscular Hemoglobin 31 25-34 pg Mean Corpuscular Hemoglobin Concent 33 32-36 g/dL Red Cell Distribution Width 14.1 10.0-14.5 % Platelet Count 153 130-400 10^3/uL Mean Platelet Volume 10.3 9.0-12.2 fL Immature Granulocyte % (Auto) 2 % Neutrophils (%) (Auto) 72 42-75 % Lymphocytes (%) (Auto) 17 12-44 % Monocytes (%) (Auto) 9 0-12 % Eosinophils (%) (Auto) 0 0-10 % Basophils (%) (Auto) 0 0-10 % Neutrophils # (Auto) 9.4 H 1.8-7.8 10^3/uL Lymphocytes # (Auto) 2.2 1.0-4.0 10^3/uL Monocytes # (Auto) 1.1 H 0.0-1.0 10^3/uL Eosinophils # (Auto) 0.0 0.0-0.3 10^3/uL Basophils # (Auto) 0.0 0.0-0.1 10^3/uL Immature Granulocyte # (Auto) 0.3 H 0.0-0.1 10^3/uL Sodium Level 134 L 135-145 MMOL/L Potassium Level 3.8 3.6-5.0 MMOL/L Chloride Level 106 98-107 MMOL/L Carbon Dioxide Level 23 21-32 MMOL/L Anion Gap 5 5-14 MMOL/L Blood Urea Nitrogen 14 7-18 MG/DL Creatinine 0.62 0.60-1.30 MG/DL Estimat Glomerular Filtration Rate 86 BUN/Creatinine Ratio 23 Glucose Level 76 70-105 MG/DL Calcium Level 7.5 L 8.5-10.1 MG/DL Corrected Calcium 8.6 8.5-10.1 MG/DL Phosphorus Level 1.2 L 2.3-4.7 MG/DL Magnesium Level 1.8 1.6-2.4 MG/DL Total Bilirubin 1.0 0.1-1.0 MG/DL Aspartate Amino Transf (AST/SGOT) 27 5-34 U/L Alanine Aminotransferase (ALT/SGPT) 8 0-55 U/L Alkaline Phosphatase 59 40-136 U/L Total Protein 4.2 L 6.4-8.2 GM/DL Albumin 2.6 L 3.2-4.5 GM/DL Digoxin Level 0.75 L 0.80-2.00 NG/ML Vital Signs Date Time Temp Pulse Resp B/P (MAP) Pulse Ox O2 Delivery O2 Flow Rate FiO2 10/15/21 06:00 78 11 129/50 (90) 95 Room Air 10/15/21 05:00 75 26 127/57 (72) 96 Room Air 10/15/21 04:00 87 24 127/63 (79) 96 Room Air 10/15/21 04:00 36.4 10/15/21 03:50 95 Room Air 10/15/21 03:10 77 133/46 (70) 96 Room Air 10/15/21 02:00 76 9 131/40 (78) 95 Room Air 10/15/21 01:00 67 10/15/21 01:00 67 16 120/40 (55) 95 Room Air 10/15/21 00:00 96 Room Air 10/15/21 00:00 64 17 122/43 (65) 91 Room Air 10/14/21 23:45 36.0 10/14/21 23:00 77 8 112/42 (83) 96 Room Air 10/14/21 22:15 67 18 116/44 (66) 97 Room Air 10/14/21 21:24 72 20 117/34 (64) 98 Room Air 10/14/21 20:18 71 126/46 10/14/21 20:00 76 10 115/70 (85) 99 Room Air 10/14/21 20:00 36.2 10/14/21 20:00 99 Room Air 10/14/21 19:00 97 10/14/21 19:00 97 21 135/77 (87) 96 Room Air 10/14/21 18:07 84 24 133/118 (123) 98 Room Air 10/14/21 17:00 63 14 151/49 (83) 95 Room Air 10/14/21 16:00 95 Room Air 10/14/21 16:00 83 27 125/54 (77) 97 Room Air 10/14/21 15:45 36.5 10/14/21 15:00 65 20 172/62 (98) 96 Room Air 10/14/21 14:00 66 19 123/75 (91) 97 Room Air 10/14/21 13:08 75 10/14/21 13:00 66 30 145/47 (79) 94 Room Air 10/14/21 12:00 57 16 149/57 (87) 95 Room Air 10/14/21 12:00 36.2 10/14/21 12:00 96 Room Air 10/14/21 11:00 61 17 146/53 (84) 97 Room Air 10/14/21 10:22 36.5 71 20 148/46 97 Room Air 10/14/21 10:00 58 15 147/56 (86) 96 Room Air 10/14/21 09:00 72 11 152/47 (82) 99 Room Air 10/14/21 08:24 36.5 60 18 133/51 96 Room Air 10/14/21 08:22 96 Room Air 10/14/21 08:09 36.5 76 12 130/40 97 Room Air 10/14/21 08:00 75 14 123/41 (68) 97 Room Air 10/14/21 07:55 36.0 10/14/21 07:48 63 10/14/21 07:21 36.5 71 18 129/45 98 Room Air 10/14/21 07:00 56 11 134/40 (71) 96 Room Air I & O 10/15/21 07:00 Intake Total 1600 ml Output Total 2175 ml Balance -575 ml LLE--dressing and splint in place NVI distally no calf tenderness s/p L femur ORIF strict NWB SARAH DOLL MD Oct 15, 2021 07:00
[2021-10-15] MEDS: DIGOXIN 0.125 MG (LANOXIN) TAB PO SCH (08:22)
[2021-10-15] MEDS: PANTOPRAZOLE 40 MG (PROTONIX) VIAL IV SCH ×2 (08:22→19:51)
[2021-10-15] MEDS: MEMANTINE 10 MG (NAMENDA) TABLET PO SCH ×2 (08:22→19:51)
[2021-10-15] MEDS: HYDROcodone/APAP 5 MG/325 MG (LORTAB) TAB PO PRN (08:23)
--- NOTE | 2021-10-15 08:30 | Cardiology Progress Note ---
Subjective Date Seen by Provider: Oct 15, 2021 Time Seen by Provider: 08:28 Subjective/Events-last exam Patient was seen at bedside, laying down comfortably. Complaining of pain in her leg. Still lethargic. Review of Systems General: No Chills, No Night Sweats; Fatigue, Malaise; No Appetite, No Other HEENT: No Head Aches, No Visual Changes, No Eye Pain, No Ear Pain, No Dysphasia, No Sinus Congestion, No Post Nasal Drip, No Sore Throat, No Other Pulmonary: No Dyspnea, No Cough, No Pleuritic Chest Pain, No Other Cardiovascular: No: Chest Pain, Palpitations, Orthopnea, Paroxysmal Noc. Dyspnea, Edema, Lt Headedness, Other Objective-Cardiology Exam Last Set of Vital Signs Vital Signs 10/15/21 10/15/21 10/15/21 04:00 06:00 06:37 Temp 36.4 Pulse 92 Resp 11 B/P (MAP) 129/50 (90) Pulse Ox 95 O2 Delivery Room Air I&O Intake and Output 10/15/21 00:00 Intake Total 1925 ml Output Total 2070 ml Balance -145 ml Intake Oral 1375 ml IV Total 550 ml Output Urine Total 2070 ml General: Alert, Oriented X3, Cooperative HEENT: Atraumatic, PERRLA Neck: Supple, No JVD, No Thyromegaly Lungs: Clear to Auscultation, Normal Air Movement Heart: Normal S1, Normal S2, No Murmurs, Other (Atrial fibrillation) Abdomen: Normal Bowel Sounds, Soft, No Tenderness, No Hepatosplenomegaly, No Masses Extremities: No Clubbing, No Cyanosis, No Edema, Normal Pulses, No Tenderness/Swelling Skin: No Rashes, No Breakdown, No Significant Lesion Neuro: Normal Speech, Normal Tone, Sensation Intact Psych/Mental Status: Mental Status NL, Mood NL Results Lab Laboratory Tests 10/14/21 12:50 10/15/21 03:35 A/P-Cardiology Admission Diagnosis Atrial fibrillation Tachycardia Hypotension Hip fracture Assessment/Plan Atrial fibrillation with rapid ventricular response. Patient probably has history of chronic atrial fibrillation, has been maintained on Eliquis as an outpatient. Heart rate is better controlled, blood pressure is more stable Tolerating digoxin well. Continue to monitor Anemia, postsurgery, will require blood transfusion Monitor H&H Planning to initiate oral anticoagulation once her H&H are more stable. Hypotensive shock, probably combination of atrial fibrillation and hypovolemia and recovery from anesthesia. Still on norepinephrine drip, will try to wean her off the pressors Left hip fracture, status post surgical repair done on April 14, 2022. Recovering slowly. Shortness of breath, maintained on oxygen. Diabetes mellitus, maintained on insulin as an outpatient. Dementia. PALOMA MACIAS MD Oct 15, 2021 08:30
[2021-10-15] MEDS: ENOXAPARIN INJECTION 30 MG/0.3 ML SYR SC SCH (08:34)
--- NOTE | 2021-10-15 09:20 | Progress Note - Hospitalist ---
Subjective HPI/CC On Admission Date Seen by Provider: Oct 15, 2021 Nieves Cavazos is an 85 year old female with PMH HTN, T2DM, HLD, GERD, dementia, RLS, who [facility] She was found to have a distal femur fracture. She was seen after returning from the OR in the ICU. She developed hypotension and AFib with RVR. Dr. Russell was also at the bedside and was starting her on IV amiodarone and obtaining an echocardiogram. She is still under the effects of sedation and is unable to provide any history. Subjective/Events-last exam Pt reports feeling better today. Eating breakfast. No complaints. Only request is for help eating her food. Discussed with RN and off pressors and rate controlled. Objective Exam Vital Signs Vital Signs Date Time Temp Pulse Resp B/P (MAP) Pulse Ox O2 Delivery O2 Flow Rate FiO2 10/15/21 08:38 97 Room Air 10/15/21 08:00 36.0 10/15/21 06:37 92 10/15/21 06:00 11 129/50 (90) 10/13/21 19:00 3.00 Capillary Refill : Less Than 3 Seconds General Appearance: No Apparent Distress Respiratory: Lungs Clear, No Respiratory Distress Cardiovascular: No Murmur, Irregularly Irregular; No Tachycardia Gastrointestinal: Normal Bowel Sounds, Non Tender, Soft Neurologic/Psychiatric: Alert, Oriented x3 Results/Procedures Lab Laboratory Tests 10/14/21 12:50 10/15/21 03:35 Patient resulted labs reviewed. Imaging: Reviewed Imaging Films, Reviewed Imaging Report Assessment/Plan Assessment and Plan Assess & Plan/Chief Complaint AFib with RVR and shock Anemia- acute blood loss Cardiology consulted- discussed with Dr Russell this morning- ok with transfer to floor if off pressors Digoxin Lovenox held for anemia 2 units of blood given Hgb stable Closed left distal femur fracture Fall Orthopedic surgery consulted s/p surgical repair 10/13 Pain regimen Bowel regimen Incentive spirometry PT/OT T2DM with hyperglycemia Levemir Sliding scale insulin HTN HLD GERD Dementia RLS Continue home meds as able Critical Care Critically Ill Patient Diagnosis/Problems Diagnosis/Problems (1) Normocytic anemia (2) Dementia (3) Hypertension (4) Shock (5) Atrial fibrillation with rapid ventricular response Status: Acute (6) Closed fracture of distal end of left femur Status: Acute Qualifiers: Encounter type: initial encounter MARZENA DAVIES MD Oct 15, 2021 09:20
--- NOTE | 2021-10-15 11:26 | Physical Therapy Evaluation ---
PT Evaluation-General Medical Diagnosis Admission Date Oct 12, 2021 at 18:30 Medical Diagnosis: fall resulting in left distal femur fracture Onset Date: Oct 12, 2021 Therapy Diagnosis Therapy Diagnosis: impaired mobility/weakness Precautions Precautions/Isolations: Fall Prevention, Standard Precautions Weight Bear Status Right Lower Extremity: Right Full Weight Bearing Left Lower Extremity: Left Non Weight Bearing Transfers only. STRICT non-weight bearing. Immobilizer at all times. Referral Physician: Brody Reason for Referral: Evaluation/Treatment Medical History Pertinent Medical History: DM, Dementia, HTN Additional Medical History morbid obesity Current History EMS from [place] secondary to a fall during a transfer w/c to bed Reviewed History: Yes Social History Home: Intermediate Prior Prior Level of Function SCALE: Activities may be completed with or without assistive devices. 7-Ineisrbypi-rdjyqrx completes the activity by him/herself with no assistance from a helper. 5-Set-up or Clean-up Assistance-helper sets up or cleans up; patient completes activity. [place] assists only prior to or following the activity. 4-Supervision or Touching Assistance-helper provides verbal cues and/or touching/steadying and/or contact guard assistance as patient completes activity. Assistance may be provided throughout the activity or intermittently. 3-Partial/Moderate Assistance-helper does LESS THAN HALF the effort. Drum[place] lifts, holds or supports trunk or limbs, but provides less than half the effort. 2-Substantial/Maximal Assistance-helper does MORE THAN HALF the effort. Drummond l ifts or holds trunk or limbs and provides more than half the effort. 2-Awoowbdrj-qynfnj does ALL the effort. Patient does none of the effort to complete the activity. Or, the assistance of 2 or more helpers is required for the patient to complete the activity. If activity was not attempted, code reason: 7-Patient Refused. 9-Not Applicable-not attempted and the patient did not perform the activity before the current illness, exacerbation or injury. 10-Not Attempted due to Environmental Limitations-(lack of equipment, weather restraints, etc.). 88-Not Attempted due to Medical Conditions or Safety Concerns. Bed Mobility: 2 Transfers (B,C,W/C): 2 Gait: 2 Wheelchair Mobility: 2 Indoor Mobility (Ambulation): Needed Some Help Prior Devices Use: Manual wheelchair, Walker PT Evaluation-Current Subjective Patient agrees to PT. Objective Patient Orientation: Person, Time, Situation Attachments: Oxygen, Su Catheter, IV ROM/Strength ROM Lower Extremities left LE immobilized/right LE WFL Strength Lower Extremities right LE 3-/5 grossly/left LE NT Integumentary/Posture Integumentary refer to nursing notes Bowel Incontinence: Yes Bladder Incontinence: Su Cath Posture WFL Neuromuscular (Tone, Coordination, Reflexes) grossly intact Sensory Vision: Wears Glasses Hearing: Functional Transfers Roll Left to Right (QC): 1 (x 2) Sit to Lying (QC): 1 (x 2) Lying to Sitting/Side of Bed(Q: 1 (x 2) required assistance to maintain sitting EOB Gait Does the Patient Walk?: No and Walking Goal NOT indicated Balance Sitting Static: Poor Sitting Dynamic: Poor Assessment/Needs Patient will benefit from skilled PT to address functional mobility and strengthening to improve current LOF. Patient has strict NWB left LE with immobilizer in place. Patient will require Duy Lift for safe transfers for OOB activity. Rehab Potential: Guarded PT Check Grader Goals Assisted Goals PT Check Grader Goals Time Frame: Oct 26, 2021 Roll Left & Right (QC): 2 Sit to Lying (QC): 2 Lying-Sitting on Side/Bed(QC): 2 PT Plan Problem List Problem List: Activity Tolerance, Functional Strength, Safety, Balance, Transfer, Bed Mobility Treatment/Plan Treatment Plan: Continue Plan of Care Treatment Plan: Bed Mobility, Education, Functional Activity Michelle, Functional Strength, Safety, Therapeutic Exercise, Transfers Treatment Duration: Oct 26, 2021 Frequency: 5 times per week Estimated Hrs Per Day: .25 hour per day Discharge Recommendations Therapy Discharge Recommendati: Other, See Comments (care home facility) Time/GCodes Time In: 1054 Time Out: 1106 Total Billed Treatment Time: 12 Total Billed Treatment [address] [facility] 12 min LILLY CARRASCO PT Oct 15, 2021 11:26
--- NOTE | 2021-10-15 11:39 | Occupational Therapy Eval ---
OT Evaluation-General/PLF Medical Diagnosis Admission Date Oct 12, 2021 at 18:30 Medical Diagnosis: s/p L Femur ORIF Onset Date: Oct 12, 2021 Therapy Diagnosis Therapy Diagnosis: reduced adl status Precautions Precautions/Isolations: Fall Prevention, Standard Precautions Weight Bear Status Weight Bearing Restriction: Non Weight Bearing Location Restriction: L LE Non Weight Bearing Transfers only. STRICT non-weight bearing. Immobilizer at all times. Referral Physician: Brody Referral Reason: Evaluation/Treatment Medical History Pertinent Medical History: DM, Dementia, HTN Current History EMS from [place] secondary to a fall during a transfer w/c to bed. Pt is a poor historian, no family present to verify accuracy of responses. Per patient, she receives assistance with adls. Unsure at this time how much assistance is provided. Pt states she uses both a walker and a w/c, unsure how much walking/distance pt can perform at baseline. Social History Home: Halfway Entry Into Home: Level Entry ADL-Prior Level of Function SCALE: Activities may be completed with or without assistive devices. 5-Gkwmphtzjg-pxhjted completes the activity by him/herself with no assistance from a helper. 5-Set-up or Clean-up Assistance-helper sets up or cleans up; patient completes activity. [place] assists only prior to or following the activity. 4-Supervision or Touching Assistance-helper provides verbal cues and/or touching/steadying and/or contact guard assistance as patient completes activity. Assistance may be provided throughout the activity or intermittently. 3-Partial/Moderate Assistance-helper does LESS THAN HALF the effort. [place] lifts, holds or supports trunk or limbs, but provides less than half the effort. 2-Substantial/Maximal Assistance-helper does MORE THAN HALF the effort. [place] lifts or holds trunk or limbs and provides more than half the effort. 2-Rioitfslh-nskfmi does ALL the effort. Patient does none of the effort to complete the activity. Or, the assistance of 2 or more helpers is required for the patient to complete the activity. If activity was not attempted, code reason: 7-Patient Refused. 9-Not Applicable-not attempted and the patient did not perform the activity before the current illness, exacerbation or injury. 10-Not Attempted due to Environmental Limitations-(lack of equipment, weather restraints, etc.). 88-Not Attempted due to Medical Conditions or Safety Concerns. Self Care: Unknown Functional Cognition: Needed Some Help DME/Equipment: Shower OT Current Status Subjective While supine, pt denies pain. She cries out in pain with all mobility. Appearance Pt returned to supine in bed, all needs within reach. Mental Status/Objective Patient Orientation: Person, Place Attachments: Su Catheter, IV, Oxygen, Telemetry Current Glasses/Contacts: Yes Hand Dominance: Right ADL-Treatment Lower Body Dressing (QC): 1 On/Off Footwear (QC): 1 Toileting Hygiene (QC): 1 Supine>sit: Dependent, no effort given by patient. Upon sitting upright, pt requires BUE support and intermittent min a to maintain balance. No self correction observed when patient starts to lose balance. Pt unsafe to stand at this time. She has strict NWB restrictions on left LE; immobilizer in place. Dependent x2 to return to supine. Pt incontinent of bowels. Max a to roll R/L, dependent for stewart care. Patient will require Duy Lift for safe transfers for OOB activity. Education OT Patient Education: Correct positioning, Modified ADL techniques, Purpose of tx/functional activities, Reviewed precautions, Rehab process, Safety issues, Transfer techniques Teaching Recipient: Patient Teaching Methods: Demonstration, Discussion Response to Teaching: Return Demonstration, Reinforcement Needed OT Care Home Goals Commercial Construction Superintendent Goals Time Frame: Nov 05, 2021 Eating (QC): 5 Oral Hygiene (QC): 5 Toileting Hygiene (QC): 3 Shower/Bathe Self (QC): 3 Upper Body Dressing (QC): 4 Lower Body Dressing (QC): 3 1=Demonstrate adherence to instructed precautions during ADL tasks. 2=Patient will verbalize/demonstrate understanding of assistive devices/modifications for ADL. 3=Patient will improve strength/tolerance for activity to enable patient to perform ADL's. OT Education/Plan Problem List/Assessment Assessment: Decreased Activ Tolerance, Decreased Safety Aware, Decreased UE Strength, Dependent Transfers, Edema (L hand), Impaired Bed Mobility, Impaired Cognition, Impaired Funct Balance, Impaired Self-Care Skills Discharge Recommendations Plan/Recommendations: Continue POC Therapy Discharge Recommendati: Post Acute OT Treatment Plan/Plan of Care Treatment,Training & Education: Yes Patient would benefit from OT for education, treatment and training to promote independence in ADL's, mobility, safety and/or upper extremity function for ADL's. Plan of Care: ADL Retraining, Caregiver Training, Cognitive Retraining, Func tional Mobility, Group Exercise/Act as Ind, Orthotic Fitting/Training, UE Funct Exercise/Act, W/C Management Training Treatment Duration: Nov 05, 2021 Frequency: 3 times per week (3-5x/week) Estimated Hrs Per Day: .25 hour per day Rehab Potential: Guarded Time/GCodes Start Time: 10:54 Stop Time: 11:08 Total Time Billed (hr/min): 14 Billed Treatment Time 1 visit Arminda Junior OT Oct 15, 2021 11:39
--- NOTE | 2021-10-15 12:11 | Tele-ICU Progress Note ---
Subjective Date Seen by a Provider: Oct 15, 2021 Time Seen by a Provider: 12:05 Subjective/Events-last exam Available chart/vitals/labs/images reviewed. Video assessment done using telemetry ICU camera, rest of exam as per RN. Discussion with the RN, exam as per RN. Hospital course Patient is off all the drips. Hemodynamically stable. She received 2 units of packed red blood cells over the last 24 hours. Sepsis Event Evaluation Height, Weight, BMI Height: '" Weight: lbs. oz. kg; 32.10 BMI Method: Exam Exam Patient acknowledged, consented, and participated in this virtual visit which was conducted using real time audio/video Vital Signs Date Time Temp Pulse Resp B/P (MAP) Pulse Ox O2 Delivery O2 Flow Rate FiO2 10/15/21 10:00 70 14 114/47 (69) 98 Room Air 10/15/21 09:00 65 21 115/92 (100) 98 Room Air 10/15/21 08:38 97 Room Air 10/15/21 08:00 87 18 112/48 (69) 98 Room Air 10/15/21 08:00 36.0 10/15/21 07:00 75 15 128/55 (79) 90 Room Air 10/15/21 06:37 92 10/15/21 06:00 78 11 129/50 (90) 95 Room Air 10/15/21 05:00 75 26 127/57 (72) 96 Room Air 10/15/21 04:00 87 24 127/63 (79) 96 Room Air 10/15/21 04:00 36.4 10/15/21 03:50 95 Room Air 10/15/21 03:10 77 133/46 (70) 96 Room Air 10/15/21 02:00 76 9 131/40 (78) 95 Room Air 10/15/21 01:00 67 10/15/21 01:00 67 16 120/40 (55) 95 Room Air 10/15/21 00:00 96 Room Air 10/15/21 00:00 64 17 122/43 (65) 91 Room Air 10/14/21 23:45 36.0 10/14/21 23:00 77 8 112/42 (83) 96 Room Air 10/14/21 22:15 67 18 116/44 (66) 97 Room Air 10/14/21 21:24 72 20 117/34 (64) 98 Room Air 10/14/21 20:18 71 126/46 10/14/21 20:00 76 10 115/70 (85) 99 Room Air 10/14/21 20:00 36.2 10/14/21 20:00 99 Room Air 10/14/21 19:00 97 10/14/21 19:00 97 21 135/77 (87) 96 Room Air 10/14/21 18:07 84 24 133/118 (123) 98 Room Air 10/14/21 17:00 63 14 151/49 (83) 95 Room Air 10/14/21 16:00 95 Room Air 10/14/21 16:00 83 27 125/54 (77) 97 Room Air 10/14/21 15:45 36.5 10/14/21 15:00 65 20 172/62 (98) 96 Room Air 10/14/21 14:00 66 19 123/75 (91) 97 Room Air 10/14/21 13:08 75 10/14/21 13:00 66 30 145/47 (79) 94 Room Air I & O 10/15/21 06:59 Intake Total 1600 ml Output Total 2175 ml Balance -575 ml Height & Weight Height: '" Weight: lbs. oz. kg; 32.10 BMI Method: General Appearance: No Apparent Distress HEENT: PERRL/EOMI, Moist Mucous Membranes Respiratory: Lungs Clear, No Respiratory Distress Cardiovascular: No Murmur, Irregularly Irregular; No Tachycardia Capillary Refill: Less Than 3 Seconds Peripheral Pulses: 2+ Radial Pulses (R), 2+ Radial Pulses (L) Gastrointestinal: normal bowel sounds, non tender, soft Extremity: Normal Inspection, Pedal Edema Neurologic/Psychiatric: Alert, Oriented x3 Skin: Pallor Results Lab Laboratory Tests 10/13/21 12:19 10/13/21 18:14 10/14/21 03:40 10/14/21 12:50 10/15/21 03:35 Assessment/Plan Assessment/Plan 1. Status post fall with left femur fracture supracondylar region. 2. Status post ORIF and internal fixation 3. Postoperative hypotension improved 4. Postoperative atrial fibrillation with rapid ventricular rate now controlled 5. Postoperative hypoxia requiring supplemental oxygen improved. Recommendations 1. Continue monitor hemoglobin. 2. Physical therapy and Occupational Therapy 3. DVT prophylaxis and ulcer prophylaxis. 4. Patient may be transferred to surgical medical floor with tele from critical care point of view. Critical Care: Critically Ill Patient Time spent with patient (mins): 15 JAJA PADILLA MD Oct 15, 2021 12:11
[2021-10-15] MEDS: NOREPINEPHRINE 8 MG/250 ML 250 ML IV SCH (12:30)
[2021-10-15] MEDS: ALBUMIN 25% 25 GM/100 ML 100 ML IV SCH (14:21)
[2021-10-15] MEDS: DONEPEZIL 10 MG (ARICEPT) TAB PO SCH (19:51)
[2021-10-16] VITALS (16 sets, daily range): BP systolic 100–142; BP diastolic 40–82
[2021-10-16 05:26] LABS: BASOPHILS % (AUTO) 0 % (0-10); EOSINOPHILS # (AUTO) 0.1 10^3/uL (0.0-0.3); LYMPHOCYTES % (AUTO) 15 % (12-44)
[2021-10-16 05:28] LABS: EOSINOPHILS % (AUTO) 2 % (0-10); HEMATOCRIT 21 % (35-52); LYMPHOCYTES # (AUTO) 1.2 10^3/uL (1.0-4.0); MEAN CORPUSCULAR HGB CONC 33 g/dL (32-36); MEAN CORPUSCULAR VOLUME 94 fL (80-99); MEAN PLATELET VOLUME 10.5 fL (9.0-12.2); MONOCYTES # (AUTO) 0.7 10^3/uL (0.0-1.0); MONOCYTES % (AUTO) 8 % (0-12); NEUTROPHILS # (AUTO) 5.8 10^3/uL (1.8-7.8); NEUTROPHILS % (AUTO) 73 % (42-75); PLATELET COUNT 135 10^3/uL (130-400); WHITE BLOOD COUNT 7.9 10^3/uL (4.3-11.0)
[2021-10-16 05:30] LABS: MEAN CORPUSCULAR HEMOGLOBIN 32 pg (25-34)
[2021-10-16 05:37] LABS: ALBUMIN 2.8 GM/DL (3.2-4.5); POTASSIUM 3.9 MMOL/L (3.6-5.0)
[2021-10-16 05:38] LABS: CALCIUM 7.8 MG/DL (8.5-10.1)
[2021-10-16 05:39] LABS: TOTAL PROTEIN 4.3 GM/DL (6.4-8.2)
[2021-10-16] MEDS: POTASSIUM CL 10MEQ/50ML IVPB 50 ML IV SCH (05:40)
[2021-10-16] MEDS: inSUlin ASPART (NovoLOG) 1 UNIT/0.01 ML (CHARGE PER UNIT) SC SCH ×4 (05:40→20:42)
[2021-10-16] MEDS: KCL 20 MEQ TAB (K-DUR) PO SCH (05:40)
[2021-10-16 05:42] LABS: PHOSPHORUS 1.2 MG/DL (2.3-4.7)
[2021-10-16 05:43] LABS: CREATININE SERUM 0.57 MG/DL (0.60-1.30)
[2021-10-16] MEDS: MAGNESIUM 1 GM/100 ML IVPB 100 ML IV SCH (05:47)
[2021-10-16] MEDS: rOPINIRole 0.25 MG (REQUIP) TAB PO SCH ×3 (06:09→20:42)
[2021-10-16] MEDS: fentaNYL INJ 100 MCG/2 ML AMP IV PRN (06:25)
--- NOTE | 2021-10-16 07:14 | Progress Note ---
Standard Progress Note Progress Notes/Assess & Plan Date Seen by a Provider: Oct 16, 2021 Time Seen by a Provider: 07:09 Progress/Assessment & Plan Patient sitting up in bed. She appears disoriented and mumbles but in no obvious distress. LLE dressing clean and dry. Would edges well approximated with no warmth, erythema or drainage. Intact PF, DF and EHL. calf soft and nontender and negative George's sign. VSS H&H 7 and 21 Tmax 36.2 Assessment: stable S/P ORIF left distal femur Plan: continue Immobilizer at all times dressing changed this morning DVT prophylaxis Continue strict nonwt.bearing protection LLE. YASHIRA ARCOS Oct 16, 2021 07:14
[2021-10-16] MEDS: PANTOPRAZOLE 40 MG (PROTONIX) VIAL IV SCH ×2 (07:56→20:42)
[2021-10-16] MEDS: DIGOXIN 0.125 MG (LANOXIN) TAB PO SCH (07:56)
[2021-10-16] MEDS: MEMANTINE 10 MG (NAMENDA) TABLET PO SCH ×2 (07:56→20:42)
[2021-10-16] MEDS ORDERED: POTASSIUM PHOSPHATE INJ 30 MM in NS (IVPB) 250 ML IV ONE (08:30)
--- NOTE | 2021-10-16 08:37 | Progress Note - Hospitalist ---
Subjective HPI/CC On Admission Date Seen by Provider: Oct 16, 2021 Nieves Cavazos is an 85 year old female with PMH HTN, T2DM, HLD, GERD, dementia, RLS, who presented after a fall at [facility] living. She was found to have a distal femur fracture. She was seen after returning from the OR in the ICU. She developed hypotension and AFib with RVR. Dr. Russell was also at the bedside and was starting her on IV amiodarone and obtaining an echocardiogram. She is still under the effects of sedation and is unable to provide any history. Subjective/Events-last exam Pt reports doing well. Just finished breakfast. No complaints. RN at bedside with no concerns either. Pt states BM yesterday. Pain controlled. Objective Exam Vital Signs Vital Signs Date Time Temp Pulse Resp B/P (MAP) Pulse Ox O2 Delivery O2 Flow Rate FiO2 10/16/21 07:28 36.0 10/16/21 06:00 71 109/42 (64) 97 Room Air 10/15/21 23:00 18 10/13/21 19:00 3.00 Capillary Refill : Less Than 3 Seconds General Appearance: No Apparent Distress, Chronically ill, Obese Respiratory: Lungs Clear, No Respiratory Distress Cardiovascular: No Murmur, Irregularly Irregular Gastrointestinal: Normal Bowel Sounds, Non Tender, Soft Neurologic/Psychiatric: Alert, Oriented x3 Results/Procedures Lab Laboratory Tests 10/16/21 05:15 Patient resulted labs reviewed. Imaging: Reviewed Imaging Films, Reviewed Imaging Report Assessment/Plan Assessment and Plan Assess & Plan/Chief Complaint AFib with RVR and shock Anemia- acute blood loss Cardiology consulted, appreciate recs Digoxin Lovenox held for anemia Down from 7.8 to 7.0 today 2 units of blood given, will transfuse another unit Closed left distal femur fracture Fall Orthopedic surgery consulted s/p surgical repair 10/13 Pain regimen Bowel regimen Incentive spirometry PT/OT T2DM with hyperglycemia Levemir- will hold due to consistently BS in the 70s Sliding scale insulin HTN HLD GERD Dementia RLS Continue home meds as able Critical Care Critically Ill Patient Diagnosis/Problems Diagnosis/Problems (1) Normocytic anemia (2) Dementia (3) Hypertension (4) Shock (5) Atrial fibrillation with rapid ventricular response Status: Acute (6) Closed fracture of distal end of left femur Status: Acute Qualifiers: Encounter type: initial encounter MARZENA DAVIES MD Oct 16, 2021 08:37
[2021-10-16] MEDS ORDERED: NS IV 500 ML 500 ML IV SCH (08:45)
--- NOTE | 2021-10-16 08:46 | Cardiology Progress Note ---
Subjective Date Seen by Provider: Oct 16, 2021 Time Seen by Provider: 08:44 Subjective/Events-last exam Patient was seen and evaluated at bedside, laying down comfortably, denied any chest pain Review of Systems General: No Chills, No Night Sweats, No Fatigue, No Malaise, No Appetite, No O ther HEENT: No Head Aches, No Visual Changes, No Eye Pain, No Ear Pain, No Dys phasia, No Sinus Congestion, No Post Nasal Drip, No Sore Throat, No Other Pulmonary: No Dyspnea, No Cough, No Pleuritic Chest Pain, No Other Cardiovascular: No: Chest Pain, Palpitations, Orthopnea, Paroxysmal Noc. Dyspnea, Edema, Lt Headedness, Other Objective-Cardiology Exam Last Set of Vital Signs Vital Signs 10/15/21 10/16/21 10/16/21 23:00 06:00 07:28 Temp 36.0 Pulse 71 Resp 18 B/P (MAP) 109/42 (64) Pulse Ox 97 O2 Delivery Room Air I&O Intake and Output 10/15/21 23:59 Intake Total 1370 ml Output Total 875 ml Balance 495 ml Intake Oral 1170 ml IV Total 200 ml Output Urine Total 875 ml General: Alert, Oriented X3, Cooperative HEENT: Atraumatic, PERRLA Neck: Supple, No JVD, No Thyromegaly Lungs: Clear to Auscultation, Normal Air Movement Heart: Normal S1, Normal S2, No Murmurs, Other (Atrial fibrillation) Abdomen: Normal Bowel Sounds, Soft, No Tenderness, No Hepatosplenomegaly, No Masses Extremities: No Clubbing, No Cyanosis, No Edema, Normal Pulses, No Tenderness/Swelling Skin: No Rashes, No Breakdown, No Significant Lesion Neuro: Normal Speech, Normal Tone, Sensation Intact Psych/Mental Status: Mental Status NL, Mood NL Results Lab Laboratory Tests 10/16/21 05:15 A/P-Cardiology Admission Diagnosis Atrial fibrillation Tachycardia Hypotension Hip fracture Assessment/Plan Chronic permanent atrial fibrillation, had episode of rapid heart rate postoperatively, currently heart rate is controlled. Tolerating digoxin well. Continue to monitor Anemia, postsurgery, will require blood transfusion Monitor H&H Planning to initiate oral anticoagulation once her H&H are more stable. Status post hypotensive shock, probably combination of atrial fibrillation and hypovolemia and recovery from anesthesia. Blood pressure is better. Patient is feeling better. Continue to monitor Left hip fracture, status post surgical repair done on April 14, 2022. Recovering slowly. Shortness of breath, maintained on oxygen. Reporting improvement Diabetes mellitus, maintained on insulin as an outpatient. Dementia. PALOMA MACIAS MD Oct 16, 2021 08:46
--- NOTE | 2021-10-16 09:04 | Physical Therapy Daily Note ---
PT Daily Note-Current Subjective Patient in bed pre tx, agrees to PT, has unrated pain in left leg. Appearance Patient in bed post tx with nurse call, phone, tray, all needs met. Mental Status Patient Orientation: Person, Unable to Assess, Mumbles Transfers SCALE: Activities may be completed with or without assistive devices. 0-Hxubylirfe-ualruwn completes the activity by him/herself with no assistance from a helper. 5-Set-up or Clean-up Assistance-helper sets up or cleans up; patient completes activity. [place] assists only prior to or following the activity. 4-Supervision or Touching Assistance-helper provides verbal cues and/or t ouching/steadying and/or contact guard assistance as patient completes activity. Assistance may be provided throughout the activity or intermittently. 3-Partial/Moderate Assistance-helper does LESS THAN HALF the effort. [place] lifts, holds or supports trunk or limbs, but provides less than half the effort. 2-Substantial/Maximal Assistance-helper does MORE THAN HALF the effort. [place] lifts or holds trunk or limbs and provides more than half the effort. 0-Namtypyvs-fntkig does ALL the effort. Patient does none of the effort to complete the activity. Or, the assistance of 2 or more helpers is required for the patient to complete the activity. If activity was not attempted, code reason: 7-Patient Refused. 9-Not Applicable-not attempted and the patient did not perform the activity before the current illness, exacerbation or injury. 10-Not Attempted due to Environmental Limitations-(lack of equipment, weather restraints, etc.). 88-Not Attempted due to Medical Conditions or Safety Concerns. Roll Left & Right (QC): 1 Sit to Lying (QC): 1 Lying to Sitting/Side of Bed(Q: 1 Patient sat to the side of the bed with assist of 2, initially she needed assist with sitting balance but after a minute she could sit on her own, she performed a couple of LE exercises and then bed was lowered so patient could get her right foot on the floor and try to scoot sideways toward the head of the bed, she was able to go a couple of inches (left leg not used) before stating she needed to lay back down, assist of 2 for sit to supine and then scooted up in bed. Weight Bearing Right Lower Extremity: Right Full Weight Bearing Left Lower Extremity: Left Non Weight Bearing Transfers only. STRICT non-weight bearing. Immobilizer at all times. Exercises Seated Therapy Exercises: Ankle pumps, Long arc quads (RLE only) Seated Reps: 20 Treatments bed mobility, sitting, LE exercise Assessment Current Status: Fair Progress improved sitting balance but assist of 2 still needed for supine <-> sit PT Usp Goals Usp Goals PT Rug Dry Room Attendant Goals Time Frame: Oct 26, 2021 Roll Left & Right (QC): 2 Sit to Lying (QC): 2 Lying-Sitting on Side/Bed(QC): 2 PT Plan Problem List Problem List: Activity Tolerance, Functional Strength, Safety, Balance, Gait, Transfer, Bed Mobility, ROM Treatment/Plan Treatment Plan: Continue Plan of Care Treatment Plan: Bed Mobility, Education, Functional Activity Michelle, Functional Strength, Safety, Therapeutic Exercise, Transfers Treatment Duration: Oct 26, 2021 Frequency: 5 times per week Estimated Hrs Per Day: .25 hour per day Safety Risks/Education Patient Education: Correct Positioning, Safety Issues Teaching Recipient: Patient Teaching Methods: Demonstration, Discussion Response to Teaching: Reinforcement Needed Time/GCodes Time In: 0833 Time Out: 0843 Total Billed Treatment Time: 10 Total Billed Treatment 1 visit FA ALFREDA PIERRE PT Oct 16, 2021 09:04
--- NOTE | 2021-10-16 09:06 | Occupational Ther Daily Note ---
OT Current Status-Daily Note Subjective Pt denies pain, a little more alert this date. Appearance Pt returned to supine in bed, all needs within reach at therapy departure. Mental Status/Objective Patient Orientation: Person, Place Attachments: IV, Knee Immobilizer, Oxygen, Telemetry ADL-Treatment Therapy Code Descriptions/Definitions Functional [place] Measure: 0=Not Assessed/NA 4=Minimal Assistance 1=Total Assistance 5=Supervision or Setup 2=Maximal Assistance 6=Modified [place] 3=Moderate Assistance 7=Complete IndependenceSCALE: Activities may be completed with or without assistive devices. 5-Pcdnulwrcu-dcgwucb completes the activity by him/herself with no assistance from a helper. 5-Set-up or Clean-up Assistance-helper sets up or cleans up; patient completes activity. [place]in assists only prior to or following the activity. 4-Supervision or Touching Assistance-helper provides verbal cues and/or to uching/steadying and/or contact guard assistance as patient completes activity. Assistance may be provided throughout the activity or intermittently. 3-Partial/Moderate Assistance-helper does LESS THAN HALF the effort. Davin lifts, holds or supports trunk or limbs, but provides less than half the effort. 2-Substantial/Maximal Assistance-helper does MORE THAN HALF the effort. Davin lifts or holds trunk or limbs and provides more than half the effort. 1-Zvgfxzdgq-xzazmr does ALL the effort. Patient does none of the effort to complete the activity. Or, the assistance of 2 or more helpers is required for the patient to complete the activity. If activity was not attempted, code reason: 7-Patient Refused. 9-Not Applicable-not attempted and the patient did not perform the activity before the current illness, exacerbation or injury. 10-Not Attempted due to Environmental Limitations-(lack of equipment, weather restraints, etc.). 88-Not Attempted due to Medical Conditions or Safety Concerns. Other Treatment Pt with immobolizer and strict NWB on LLE. Pt more alert this date; able to follow simple directions. Slight improvement in initiation when cued. Continues to need max a to sit EOB as pt requires assist to bring BLE's off edge and max a with elevating trunk. Initially, min a needed with sitting balance but improves to SBA with time and cues for proper pos itioning. Pt educated on lifting/scooting hips towards HOB by placing R foot only on the floor. Pt does demonstrate ability to shift weight forward but is unsuccessful with lifting hips off of bed. Dependent to return to supine. Education provided on gentle hand/wrist ROM exercises as pt exhibits significant swelling in L hand. Unsure of comprehension, reinforcement will be needed. Education OT Patient Education: Correct positioning, Exercise program, Modified ADL techniques, Progress toward Goal/Update tx plan, Purpose of tx/functional activities, Reviewed precautions, Safety issues, Transfer techniques Teaching Recipient: Patient Teaching Methods: Demonstration, Discussion Response to Teaching: Reinforcement Needed OT Halfway Goals Halfway Goals Time Frame: Nov 05, 2021 Eating (QC): 5 Oral Hygiene (QC): 5 Toileting Hygiene (QC): 3 Shower/Bathe Self (QC): 3 Upper Body Dressing (QC): 4 Lower Body Dressing (QC): 3 1=Demonstrate adherence to instructed precautions during ADL tasks. 2=Patient will verbalize/demonstrate understanding of assistive devices/modifications for ADL. 3=Patient will improve strength/tolerance for activity to enable patient to perform ADL's. OT Education/Plan Problem List/Assessment Assessment: Decreased Activ Tolerance, Decreased Safety Aware, Decreased UE Strength, Dependent Transfers, Edema, Impaired Bed Mobility, Impaired Cognition, Impaired Funct Balance, Impaired Self-Care Skills, Restricted Funct UE ROM Discharge Recommendations Plan/Recommendations: Continue POC Treatment Plan/Plan of Care Treatment,Training & Education: Yes Patient would benefit from OT for education, treatment and training to promote independence in ADL's, mobility, safety and/or upper extremity function for ADL's. Plan of Care: ADL Retraining, Caregiver Training, Cognitive Retraining, Functional Mobility, Group Exercise/Act as Ind, Orthotic Fitting/Training, UE Funct Exercise/Act, W/C Management Training Treatment Duration: Nov 05, 2021 Frequency: 3 times per week (3-5x/week) Estimated Hrs Per Day: .25 hour per day Rehab Potential: Guarded Time/GCodes Start Time: 08:35 Stop Time: 08:45 Total Time Billed (hr/min): 10 Billed Treatment Time 1 visit Arminda Tapia OT Oct 16, 2021 09:06
--- NOTE | 2021-10-16 14:17 | Physician Query Clarification ---
Physician Query-General Query to Physician: The medical record reflects the following clinical scenario: The patient, in the setting of History/Risk factors, distal Femur fracture, Home meds: Eliquis and Aspirin Clinical Findings Admission H/H 13.8/43 decreased to 5.6/18, EBL 500 during surgery, Pos hemocult, BP decreasing as low as 57/46 on day 2 of admission and remained low requiring fluids, Blood and Norepi to keep BP above 100 systolic, Brake Assembler documenting Hypotensive shock, ICU physician documenting Hemorrhagic shock, Attending Documentation of AFib with RVR and Shock, Treatment NS Fluid Bolus, 3 Units PRBC's, Norepi gtt, Lab monitoring, ICU monitoring, Question: Can you further specify Shock per the clinical indicators above? Please document your response in the Progress Notes or Discharge Summary. 1. Hypotensive shock 2. Hemorrhagic shock 3. Other, with explanation of clinical findings 4. Clinically undetermined, no explanation for clinical findings Please clarify and document your clinical opinion in the Progress Notes and Discharge Summary including the definitive and/or presumptive diagnosis, (suspected or probable), related to the above clinical findings. Please include clinical findings supporting your diagnosis. In responding to this query, please exercise your independent professional judgment. The purpose of this communication is to more accurately reflect the complexity of your patients condition. The fact that a question is asked does not imply that any particular answer is desired or expected. Thank you for timely response to this clarification. Dunia Cruz MSN, RN Clinical Record Retrieval Specialist [phone] PHYSICIAN RESPONSE: Based on the clinical findings in the record, please respond to the query above on this document as an addendum. Physician Response: Physician Response 1 If you have questions please contact: Coding Technician: Ext: Thank you for your time and cooperation. Clinical Record Retrieval Specialist/Coding Technician This is a permanent part of the medical record DUNIA CRUZ Oct 16, 2021 14:17 MARZENA DAVIES MD Oct 20, 2021 12:15
[2021-10-16] MEDS: DONEPEZIL 10 MG (ARICEPT) TAB PO SCH (20:42)
[2021-10-16] MEDS: oxyCODONE/APAP 5/325MG (PERCOCET 5) TABLET PO PRN (20:42)
[2021-10-17] MEDS: oxyCODONE/APAP 5/325MG (PERCOCET 5) TABLET PO PRN (01:17)
[2021-10-17 03:22] VITALS: BP 122/56
[2021-10-17 04:27] LABS: BASOPHILS % (AUTO) 0 % (0-10); EOSINOPHILS # (AUTO) 0.3 10^3/uL (0.0-0.3); EOSINOPHILS % (AUTO) 3 % (0-10); HEMATOCRIT 24 % (35-52); HEMOGLOBIN 7.9 g/dL (11.5-16.0); LYMPHOCYTES # (AUTO) 1.7 10^3/uL (1.0-4.0); LYMPHOCYTES % (AUTO) 20 % (12-44); MEAN CORPUSCULAR HEMOGLOBIN 31 pg (25-34); MEAN CORPUSCULAR HGB CONC 33 g/dL (32-36); MEAN CORPUSCULAR VOLUME 93 fL (80-99); MEAN PLATELET VOLUME 10.4 fL (9.0-12.2); MONOCYTES # (AUTO) 0.7 10^3/uL (0.0-1.0); MONOCYTES % (AUTO) 9 % (0-12); NEUTROPHILS # (AUTO) 5.5 10^3/uL (1.8-7.8); NEUTROPHILS % (AUTO) 66 % (42-75); PLATELET COUNT 153 10^3/uL (130-400); WHITE BLOOD COUNT 8.3 10^3/uL (4.3-11.0)
[2021-10-17 04:50] LABS: ALBUMIN 2.6 GM/DL (3.2-4.5); POTASSIUM 4.2 MMOL/L (3.6-5.0)
[2021-10-17 04:51] LABS: CALCIUM 7.7 MG/DL (8.5-10.1)
[2021-10-17 04:53] LABS: TOTAL PROTEIN 4.4 GM/DL (6.4-8.2)
[2021-10-17 04:54] LABS: BILIRUBIN,TOTAL 1.6 MG/DL (0.1-1.0)
[2021-10-17 04:56] LABS: CREATININE SERUM 0.58 MG/DL (0.60-1.30)
[2021-10-17 04:59] LABS: MAGNESIUM 1.9 MG/DL (1.6-2.4)
[2021-10-17] MEDS: inSUlin ASPART (NovoLOG) 1 UNIT/0.01 ML (CHARGE PER UNIT) SC SCH ×4 (05:46→20:43)
[2021-10-17] MEDS: KCL 20 MEQ TAB (K-DUR) PO SCH (05:46)
[2021-10-17] MEDS: POTASSIUM CL 10MEQ/50ML IVPB 50 ML IV SCH (05:46)
[2021-10-17] MEDS: MAGNESIUM 1 GM/100 ML IVPB 100 ML IV SCH (05:46)
[2021-10-17] MEDS: rOPINIRole 0.25 MG (REQUIP) TAB PO SCH ×3 (06:36→20:43)
--- NOTE | 2021-10-17 07:46 | Progress Note ---
Standard Progress Note Progress Notes/Assess & Plan Date Seen by a Provider: Oct 17, 2021 Time Seen by a Provider: 07:45 Progress/Assessment & Plan In ICU Vital Signs Date Time Temp Pulse Resp B/P (MAP) Pulse Ox O2 Delivery O2 Flow Rate FiO2 10/14/21 07:55 36.0 10/14/21 07:48 63 10/14/21 07:21 36.5 71 18 129/45 98 Room Air 10/14/21 06:11 66 15 108/36 (60) 94 Room Air 10/14/21 05:48 36.0 71 18 111/40 98 Room Air 10/14/21 05:33 36.4 72 16 122/39 73 Room Air 10/14/21 05:03 36.1 10/14/21 05:01 70 123/45 10/14/21 05:00 75 16 113/56 (65) 96 Room Air 10/14/21 04:03 36.6 10/14/21 04:00 98 Room Air 10/14/21 04:00 70 18 123/45 (66) 97 Room Air 10/14/21 03:00 89 24 129/50 (67) 98 Room Air 10/14/21 02:00 75 20 119/55 (83) 99 Room Air 10/14/21 01:00 80 10/14/21 01:00 77 132/44 (79) 99 Room Air 10/14/21 00:02 36.8 10/14/21 00:00 99 Room Air 10/14/21 00:00 87 14 123/47 (90) 100 Room Air 10/13/21 23:00 90 13 125/47 (68) 99 Room Air 10/13/21 22:00 61 17 132/52 (66) 98 Room Air 10/13/21 21:00 89 12 108/48 (61) 98 Room Air 10/13/21 20:00 98 Room Air 10/13/21 20:00 86 27 80/53 (59) 98 Room Air 10/13/21 19:46 35.9 Room Air 10/13/21 19:42 35.5 10/13/21 19:00 76 20 90/51 (60) 100 High Flow N/C 3.00 10/13/21 19:00 71 10/13/21 18:00 80 19 96/60 (72) 100 High Flow N/C 3.00 10/13/21 17:20 98 High Flow N/C 3.00 10/13/21 17:00 High Flow N/C 15.00 10/13/21 17:00 90 31 97/49 (65) 97 OxyMask 15.00 10/13/21 16:00 81 20 112/68 (83) 98 OxyMask 15.00 10/13/21 15:48 35.8 10/13/21 15:00 90 14 103/64 (77) 98 OxyMask 15.00 10/13/21 14:00 89 14 131/110 (117) 98 OxyMask 15.00 10/13/21 13:00 84 16 129/75 (93) 100 OxyMask 15.00 10/13/21 13:00 96 10/13/21 12:35 104 70/46 10/13/21 12:00 89 15 119/100 (106) 100 OxyMask 15.00 10/13/21 11:45 High Flow N/C 15.00 10/13/21 11:35 OxyMask 15 10/13/21 11:30 36.2 16 99/40 (59) 100 OxyMask 15 10/13/21 11:25 99/40 10/13/21 11:20 16 83/31 (48) 100 OxyMask 15 10/13/21 11:20 OxyMask 15 10/13/21 11:12 104 10/13/21 11:10 20 108/41 (63) 100 OxyMask 15 10/13/21 11:05 20 57/46 (50) 99 OxyMask 15 10/13/21 11:05 OxyMask 15 10/13/21 11:00 120 30 90/66 (74) 94 OxyMask 15.00 10/13/21 11:00 20 112/99 (103) 100 OxyMask 15 10/13/21 10:55 16 87/67 (74) 96 OxyMask 15 10/13/21 10:50 OxyMask 15 10/13/21 10:45 16 67/53 (58) 98 OxyMask 15 10/13/21 10:37 OxyMask 15 10/13/21 10:37 36.6 16 75/35 (48) 100 OxyMask 15 I & O 10/14/21 07:00 Intake Total 3777 ml Output Total 560 ml Balance 3217 ml Laboratory Tests Test 10/13/21 10:44 10/13/21 11:07 10/13/21 12:19 10/13/21 16:03 Range/Units Glucometer 356 H 329 H 70-110 MG/DL Blood Gas Puncture Site RT RAD Blood Gas Patient Temperature 35.3 Arterial Blood pH 7.36 L 7.37-7.43 Arterial Blood Partial Pressure CO2 36 35-45 MMHG Arterial Blood Partial Pressure O2 168 H 79-93 MMHG Arterial Blood HCO3 20 L 23-27 MMOL/L Arterial Blood Total CO2 21.3 21.0-31.0 MMOL/L Arterial Blood Oxygen Saturation 100 94-100 % Arterial Blood Base Excess -4.8 L -2.5-2.5 MMOL/L Bc Test YES-POS Blood Gas Ventilator Setting NO Blood Gas Inspired Oxygen NA White Blood Count 20.3 H 4.3-11.0 10^3/uL Red Blood Count 2.74 L 3.80-5.11 10^6/uL Hemoglobin 8.6 #L 11.5-16.0 g/dL Hematocrit 26 L 35-52 % Mean Corpuscular Volume 96 80-99 fL Mean Corpuscular Hemoglobin 31 25-34 pg Mean Corpuscular Hemoglobin Concent 33 32-36 g/dL Red Cell Distribution Width 12.6 10.0-14.5 % Platelet Count 184 130-400 10^3/uL Mean Platelet Volume 10.8 9.0-12.2 fL Immature Granulocyte % (Auto) 1 % Neutrophils (%) (Auto) 90 H 42-75 % Lymphocytes (%) (Auto) 3 L 12-44 % Monocytes (%) (Auto) 7 0-12 % Eosinophils (%) (Auto) 0 0-10 % Basophils (%) (Auto) 0 0-10 % Neutrophils # (Auto) 18.2 H 1.8-7.8 10^3/uL Lymphocytes # (Auto) 0.6 L 1.0-4.0 10^3/uL Monocytes # (Auto) 1.3 H 0.0-1.0 10^3/uL Eosinophils # (Auto) 0.0 0.0-0.3 10^3/uL Basophils # (Auto) 0.0 0.0-0.1 10^3/uL Immature Granulocyte # (Auto) 0.2 H 0.0-0.1 10^3/uL Sodium Level 135 135-145 MMOL/L Potassium Level 5.3 H 3.6-5.0 MMOL/L Chloride Level 102 98-107 MMOL/L Carbon Dioxide Level 19 L 21-32 MMOL/L Anion Gap 14 5-14 MMOL/L Blood Urea Nitrogen 18 7-18 MG/DL Creatinine 1.04 0.60-1.30 MG/DL Estimat Glomerular Filtration Rate 52 BUN/Creatinine Ratio 17 Glucose Level 374 H 70-105 MG/DL Calcium Level 7.7 L 8.5-10.1 MG/DL Test 10/13/21 17:18 10/13/21 18:14 10/13/21 20:27 10/14/21 03:40 Range/Units Stool Occult Blood Immunoassay POSITIVE H NEGATIVE White Blood Count 23.7 H 15.5 H 4.3-11.0 10^3/uL Red Blood Count 2.88 L 1.82 L 3.80-5.11 10^6/uL Hemoglobin 8.8 L 5.6 #*L 11.5-16.0 g/dL Hematocrit 28 L 18 *L 35-52 % Mean Corpuscular Volume 97 96 80-99 fL Mean Corpuscular Hemoglobin 31 31 25-34 pg Mean Corpuscular Hemoglobin Concent 32 32 32-36 g/dL Red Cell Distribution Width 12.6 12.5 10.0-14.5 % Platelet Count 236 146 130-400 10^3/uL Mean Platelet Volume 10.8 10.3 9.0-12.2 fL Glucometer 321 H 70-110 MG/DL Immature Granulocyte % (Auto) 1 % Neutrophils (%) (Auto) 70 42-75 % Lymphocytes (%) (Auto) 18 12-44 % Monocytes (%) (Auto) 11 0-12 % Eosinophils (%) (Auto) 0 0-10 % Basophils (%) (Auto) 0 0-10 % Neutrophils # (Auto) 10.8 H 1.8-7.8 10^3/uL Lymphocytes # (Auto) 2.8 1.0-4.0 10^3/uL Monocytes # (Auto) 1.7 H 0.0-1.0 10^3/uL Eosinophils # (Auto) 0.0 0.0-0.3 10^3/uL Basophils # (Auto) 0.0 0.0-0.1 10^3/uL Immature Granulocyte # (Auto) 0.2 H 0.0-0.1 10^3/uL Sodium Level 134 L 135-145 MMOL/L Potassium Level 4.2 3.6-5.0 MMOL/L Chloride Level 102 98-107 MMOL/L Carbon Dioxide Level 23 21-32 MMOL/L Anion Gap 9 5-14 MMOL/L Blood Urea Nitrogen 22 H 7-18 MG/DL Creatinine 1.05 0.60-1.30 MG/DL Estimat Glomerular Filtration Rate 51 BUN/Creatinine Ratio 21 Glucose Level 98 70-105 MG/DL Calcium Level 7.8 L 8.5-10.1 MG/DL Corrected Calcium 8.6 8.5-10.1 MG/DL Phosphorus Level 2.2 L 2.3-4.7 MG/DL Magnesium Level 1.7 1.6-2.4 MG/DL Total Bilirubin 0.6 0.1-1.0 MG/DL Aspartate Amino Transf (AST/SGOT) 20 5-34 U/L Alanine Aminotransferase (ALT/SGPT) 7 0-55 U/L Alkaline Phosphatase 48 40-136 U/L Total Protein 4.4 L 6.4-8.2 GM/DL Albumin 3.0 L 3.2-4.5 GM/DL Test 10/14/21 05:56 10/14/21 06:36 Range/Units Glucometer 79 82 70-110 MG/DL LLE--dressing intact pulses equal s/p L femur ORIF PT when stable Final Diagnosis no c/o Vital Signs Date Time Temp Pulse Resp B/P (MAP) Pulse Ox O2 Delivery O2 Flow Rate FiO2 10/17/21 03:22 36.3 53 18 122/56 (78) 96 Room Air 10/17/21 01:00 60 10/16/21 23:38 36.5 57 18 116/66 (83) 98 Room Air 10/16/21 20:15 96 Room Air 10/16/21 20:00 36.6 84 18 142/82 (102) 97 Room Air 10/16/21 19:00 80 10/16/21 16:05 36.5 82 18 135/76 (95) 95 Room Air 10/16/21 12:29 54 10/16/21 11:40 36.3 53 16 133/54 98 Room Air 10/16/21 10:00 54 14 119/46 (70) 97 Room Air 10/16/21 09:30 36.0 55 18 120/44 97 Room Air 10/16/21 09:12 36.0 60 14 129/48 98 Room Air 10/16/21 09:00 64 11 129/48 (75) 96 Room Air 10/16/21 08:15 98 Room Air 10/16/21 08:00 68 9 106/58 (74) 96 Room Air I & O 10/17/21 07:00 Intake Total 1020 ml Output Total 1015 ml Balance 5 ml Laboratory Tests Test 10/16/21 11:06 10/16/21 15:39 10/16/21 16:03 10/16/21 20:18 Range/Units Glucometer 95 110 116 H 70-110 MG/DL Hemoglobin 8.0 L 11.5-16.0 g/dL Hematocrit 25 L 35-52 % Test 10/17/21 04:22 10/17/21 05:28 Range/Units White Blood Count 8.3 4.3-11.0 10^3/uL Red Blood Count 2.59 L 3.80-5.11 10^6/uL Hemoglobin 7.9 L 11.5-16.0 g/dL Hematocrit 24 L 35-52 % Mean Corpuscular Volume 93 80-99 fL Mean Corpuscular Hemoglobin 31 25-34 pg Mean Corpuscular Hemoglobin Concent 33 32-36 g/dL Red Cell Distribution Width 14.5 10.0-14.5 % Platelet Count 153 130-400 10^3/uL Mean Platelet Volume 10.4 9.0-12.2 fL Immature Granulocyte % (Auto) 2 % Neutrophils (%) (Auto) 66 42-75 % Lymphocytes (%) (Auto) 20 12-44 % Monocytes (%) (Auto) 9 0-12 % Eosinophils (%) (Auto) 3 0-10 % Basophils (%) (Auto) 0 0-10 % Neutrophils # (Auto) 5.5 1.8-7.8 10^3/uL Lymphocytes # (Auto) 1.7 1.0-4.0 10^3/uL Monocytes # (Auto) 0.7 0.0-1.0 10^3/uL Eosinophils # (Auto) 0.3 0.0-0.3 10^3/uL Basophils # (Auto) 0.0 0.0-0.1 10^3/uL Immature Granulocyte # (Auto) 0.1 0.0-0.1 10^3/uL Sodium Level 135 135-145 MMOL/L Potassium Level 4.2 3.6-5.0 MMOL/L Chloride Level 104 98-107 MMOL/L Carbon Dioxide Level 22 21-32 MMOL/L Anion Gap 9 5-14 MMOL/L Blood Urea Nitrogen 14 7-18 MG/DL Creatinine 0.58 L 0.60-1.30 MG/DL Estimat Glomerular Filtration Rate 88 BUN/Creatinine Ratio 24 Glucose Level 109 H 70-105 MG/DL Calcium Level 7.7 L 8.5-10.1 MG/DL Corrected Calcium 8.8 8.5-10.1 MG/DL Phosphorus Level 2.0 L 2.3-4.7 MG/DL Magnesium Level 1.9 1.6-2.4 MG/DL Total Bilirubin 1.6 H 0.1-1.0 MG/DL Aspartate Amino Transf (AST/SGOT) 21 5-34 U/L Alanine Aminotransferase (ALT/SGPT) 9 0-55 U/L Alkaline Phosphatase 57 40-136 U/L Total Protein 4.4 L 6.4-8.2 GM/DL Albumin 2.6 L 3.2-4.5 GM/DL Glucometer 109 70-110 MG/DL LLE--dressing and brace intact no calf tenderness s/p ORIF L femur NH placement SARAH GARCIA MD Oct 17, 2021 07:46
[2021-10-17 08:17] VITALS: BP 132/57
[2021-10-17] MEDS: MEMANTINE 10 MG (NAMENDA) TABLET PO SCH ×2 (09:07→20:43)
[2021-10-17] MEDS: PANTOPRAZOLE 40 MG (PROTONIX) VIAL IV SCH ×2 (09:07→20:43)
[2021-10-17] MEDS: DIGOXIN 0.125 MG (LANOXIN) TAB PO SCH (09:07)
--- NOTE | 2021-10-17 10:42 | Physical Therapy Daily Note ---
PT Daily Note-Current Subjective Patient reluctantly agrees to PT. Mental Status Patient Orientation: Person Attachments: Su Catheter Transfers SCALE: Activities may be completed with or without assistive devices. 0-Jbiwuwrizp-wrlozft completes the activity by him/herself with no assistance from a helper. 5-Set-up or Clean-up Assistance-helper sets up or cleans up; patient completes activity. [place] assists only prior to or following the activity. 4-Supervision or Touching Assistance-helper provides verbal cues and/or touching/steadying and/or contact guard assistance as patient completes activity. Assistance may be provided throughout the activity or intermittently. 3-Partial/Moderate Assistance-helper does LESS THAN HALF the effort. [place] lifts, holds or supports trunk or limbs, but provides less than half the effort. 2-Substantial/Maximal Assistance-helper does MORE THAN HALF the effort. [place] lifts or holds trunk or limbs and provides more than half the effort. 7-Csvxxxcst-xeafok does ALL the effort. Patient does none of the effort to complete the activity. Or, the assistance of 2 or more helpers is required for the patient to complete the activity. If activity was not attempted, code reason: 7-Patient Refused. 9-Not Applicable-not attempted and the patient did not perform the activity before the current illness, exacerbation or injury. 10-Not Attempted due to Environmental Limitations-(lack of equipment, weather restraints, etc.). 88-Not Attempted due to Medical Conditions or Safety Concerns. Roll Left & Right (QC): 1 (x 2) Weight Bearing Right Lower Extremity: Right Full Weight Bearing Left Lower Extremity: Left Non Weight Bearing Transfers only. STRICT non-weight bearing. Immobilizer at all times. Exercises Supine Ex: Ankle pumps, Quad Set, Heel Slides, Straight leg raise Supine Reps: 15 (AAROM right LE/left LE immobilized) Assessment Patient declined to sit EOB on this date. Patient will require Duy lift for OOB activity due to strict NWB left LE with immobilized in place. PT place Moonboot right foot to relieve heel pressure. PT Shelter Goals Shelter Goals PT Pot Puller Goals Time Frame: Oct 26, 2021 Roll Left & Right (QC): 2 Sit to Lying (QC): 2 Lying-Sitting on Side/Bed(QC): 2 PT Plan Treatment/Plan Treatment Plan: Continue Plan of Care Treatment Plan: Bed Mobility, Education, Functional Activity Michelle, Functional Strength, Safety, Therapeutic Exercise, Transfers Treatment Duration: Oct 26, 2021 Frequency: 5 times per week Estimated Hrs Per Day: .25 hour per day Time/GCodes Time In: 940 Time Out: 948 Total Billed Treatment Time: 8 Total Billed Treatment 1 visit EX 8 min LILLY CARRASCO PT Oct 17, 2021 10:42
[2021-10-17 11:41] VITALS: BP 136/61
--- NOTE | 2021-10-17 11:59 | Occupational Ther Daily Note ---
OT Current Status-Daily Note Subjective Pt lying in bed. Initially pt's eyes closed, but would open to acknowledge MAYES was talking to her though would not answer. Son present in room and attempted to get pt to work with therapy. Mental Status/Objective Patient Orientation: Person, Unable to Assess Attachments: IV ADL-Treatment Therapy Code Descriptions/Definitions Functional Wilson Measure: 0=Not Assessed/NA 4=Minimal Assistance 1=Total Assistance 5=Supervision or Setup 2=Maximal Assistance 6=Modified Wilson 3=Moderate Assistance 7=Complete IndependenceSCALE: Activities may be completed with or without assistive devices. 0-Ckaslrxads-afddpqd completes the activity by him/herself with no assistance from a helper. 5-Set-up or Clean-up Assistance-helper sets up or cleans up; patient completes activity. [place] assists only prior to or following the activity. 4-Supervision or Touching Assistance-helper provides verbal cues and/or touching/steadying and/or contact guard assistance as patient completes activity. Assistance may be provided throughout the activity or intermittently. 3-Partial/Moderate Assistance-helper does LESS THAN HALF the effort. [place] lifts, holds or supports trunk or limbs, but provides less than half the effort. 2-Substantial/Maximal Assistance-helper does MORE THAN HALF the effort. [place] lifts or holds trunk or limbs and provides more than half the effort. 2-Wzxdisvbm-vapkvq does ALL the effort. Patient does none of the effort to complete the activity. Or, the assistance of 2 or more helpers is required for the patient to complete the activity. If activity was not attempted, code reason: 7-Patient Refused. 9-Not Applicable-not attempted and the patient did not perform the activity before the current illness, exacerbation or injury. 10-Not Attempted due to Environmental Limitations-(lack of equipment, weather restraints, etc.). 88-Not Attempted due to Medical Conditions or Safety Concerns. Other Treatment Pt allowed B shldr AAROM 1 set 10 reps, but would not complete on own. L hand and forearm increased edema. Son very concerned about swelling. MAYES educated son on edema massage, increased movement and elevation will assist to decrease edema in hand. Massage, ROM of hand/elbow and elevation of L UE completed. Pt did demonstrate wrist flex/ext independently. After therapy, pt lying in bed with call light/phone in reach. Son present in room. All needs met. OT Care Home Goals Electrical Superintendent Goals Time Frame: Nov 05, 2021 Eating (QC): 5 Oral Hygiene (QC): 5 Toileting Hygiene (QC): 3 Shower/Bathe Self (QC): 3 Upper Body Dressing (QC): 4 Lower Body Dressing (QC): 3 1=Demonstrate adherence to instructed precautions during ADL tasks. 2=Patient will verbalize/demonstrate understanding of assistive devices /modifications for ADL. 3=Patient will improve strength/tolerance for activity to enable patient to perform ADL's. OT Education/Plan Problem List/Assessment Assessment: Decreased Activ Tolerance, Decreased UE Strength, Impaired Bed Mobility, Impaired Self-Care Skills, Restricted Funct UE ROM Discharge Recommendations Plan/Recommendations: Continue POC Treatment Plan/Plan of Care Patient would benefit from OT for education, treatment and training to promote independence in ADL's, mobility, safety and/or upper extremity function for A DL's. Plan of Care: ADL Retraining, Caregiver Training, Cognitive Retraining, Functional Mobility, Group Exercise/Act as Ind, Orthotic Fitting/Training, UE Funct Exercise/Act, W/C Management Training Treatment Duration: Nov 05, 2021 Frequency: 3 times per week (3-5x/week) Estimated Hrs Per Day: .25 hour per day Rehab Potential: Guarded Time/GCodes Start Time: 11:13 Stop Time: 11:38 Total Time Billed (hr/min): 23 Billed Treatment Time 1 visit-FA 1 (15 min) EX 1 (8 min) KYRA CASTELLON Oct 17, 2021 11:59
[2021-10-17] MEDS ORDERED: APIXABAN 5 MG (ELIQUIS) TABLET PO NR (12:00)
--- NOTE | 2021-10-17 14:00 | Progress Note - Hospitalist ---
Subjective HPI/CC On Admission Date Seen by Provider: Oct 17, 2021 Nieves Cavazos is an 85 year old female with PMH HTN, T2DM, HLD, GERD, dementia, RLS, who presented after a fall at her long-term. She was found to have a distal femur fracture. She was seen after returning from the OR in the ICU. She developed hypotension and AFib with RVR. Dr. Rsusell was also at the bedside and was starting her on IV amiodarone and obtaining an echocardiogram. She is still under the effects of sedation and is unable to provide any history. Subjective/Events-last exam Pt reports feeling well. Only request is to get another sprite. Son at bedside and has a few questions regarding her meds and discharge plan. Answered all questions for him. Objective Exam Vital Signs Vital Signs Date Time Temp Pulse Resp B/P (MAP) Pulse Ox O2 Delivery O2 Flow Rate FiO2 10/17/21 11:41 36.9 65 18 136/61 (86) 98 Room Air 10/13/21 19:00 3.00 Capillary Refill : Less Than 3 Seconds General Appearance: No Apparent Distress, Chronically ill, Obese Respiratory: Lungs Clear, No Respiratory Distress Cardiovascular: Regular Rate, Rhythm, No Murmur Gastrointestinal: Normal Bowel Sounds, Soft Neurologic/Psychiatric: Alert, Other (pleasantly confused) Results/Procedures Lab Laboratory Tests 10/16/21 15:39 10/17/21 04:22 Patient resulted labs reviewed. Imaging: Reviewed Imaging Films, Reviewed Imaging Report Assessment/Plan Assessment and Plan Assess & Plan/Chief Complaint AFib with RVR and shock Anemia- acute blood loss Cardiology consulted, appreciate recs Digoxin Hgb stable 3 units of blood given total Resume Eliquis tto monitor for stability Closed left distal femur fracture Fall Orthopedic surgery consulted s/p surgical repair 10/13 Pain regimen Bowel regimen Incentive spirometry PT/OT T2DM with hyperglycemia Levemir held for relative hypoglycemia Sliding scale insulin HTN HLD GERD Dementia RLS Continue home meds as able Critical Care Critically Ill Patient Diagnosis/Problems Diagnosis/Problems (1) Normocytic anemia (2) Dementia (3) Hypertension (4) Shock (5) Atrial fibrillation with rapid ventricular response Status: Acute (6) Closed fracture of distal end of left femur Status: Acute Qualifiers: Encounter type: initial encounter MARZENA DAVIES MD Oct 17, 2021 14:00
[2021-10-17 15:50] VITALS: BP 164/72
--- NOTE | 2021-10-17 18:58 | Cardiology Progress Note ---
Progress Note-Cardiology Events since last exam Date Seen by Provider: Oct 17, 2021 Time Seen by Provider: 18:53 Events since last exam We are following her for atrial fibrillation. She remains on the medical/rodriguez rgical unit. She is oriented to person only. She denies chest pain, dyspnea, palpitations, syncope, or ankle edema. However, she does not necessarily seem to understand all of my questions. Certain portions of this document may have been dictated utilizing voice recognition technology. Inherent to this technology, typographical and grammatical errors may exist. As much as I am diligent to identify and correct these mistakes, some errors may remain in the document. Vitals Last set of Vitals Signs Vital Signs 10/17/21 15:50 Temp 36.1 Pulse 68 Resp 18 B/P (MAP) 164/72 (102) Pulse Ox 96 O2 Delivery Room Air Labs Labs Laboratory Tests 10/17/21 04:22 Exam Vital Signs Vital Signs Date Time Temp Pulse Resp B/P (MAP) Pulse Ox O2 Delivery O2 Flow Rate FiO2 10/17/21 15:50 36.1 68 18 164/72 (102) 96 Room Air 10/13/21 19:00 3.00 Physical Exam General: Alert but oriented to person only. No acute distress. Eye: No xanthelasma. HENT: Normocephalic. Neck: Jugular venous pressure does not appear elevated. Respiratory: Lungs are clear to auscultation. Respirations are non-labored. Breath sounds are equal. Symmetrical chest wall expansion. Cardiovascular: Normal rate. Irregular rhythm. Distant S1/S2. No murmur. No gallop. No edema. Gastrointestinal: Soft. Normal bowel sounds. Skin: Warm. Dry. Neurologic: Alert and oriented to person only. Cranial nerves 3-11 grossly intact. Has obvious dementia. Psychiatric: Cooperative but has obvious memory loss. Labs Laboratory Tests Test 10/16/21 20:18 10/17/21 04:22 10/17/21 05:28 10/17/21 10:09 Range/Units Glucometer 116 H 109 133 H 70-110 MG/DL White Blood Count 8.3 4.3-11.0 10^3/uL Red Blood Count 2.59 L 3.80-5.11 10^6/uL Hemoglobin 7.9 L 11.5-16.0 g/dL Hematocrit 24 L 35-52 % Mean Corpuscular Volume 93 80-99 fL Mean Corpuscular Hemoglobin 31 25-34 pg Mean Corpuscular Hemoglobin Concent 33 32-36 g/dL Red Cell Distribution Width 14.5 10.0-14.5 % Platelet Count 153 130-400 10^3/uL Mean Platelet Volume 10.4 9.0-12.2 fL Immature Granulocyte % (Auto) 2 % Neutrophils (%) (Auto) 66 42-75 % Lymphocytes (%) (Auto) 20 12-44 % Monocytes (%) (Auto) 9 0-12 % Eosinophils (%) (Auto) 3 0-10 % Basophils (%) (Auto) 0 0-10 % Neutrophils # (Auto) 5.5 1.8-7.8 10^3/uL Lymphocytes # (Auto) 1.7 1.0-4.0 10^3/uL Monocytes # (Auto) 0.7 0.0-1.0 10^3/uL Eosinophils # (Auto) 0.3 0.0-0.3 10^3/uL Basophils # (Auto) 0.0 0.0-0.1 10^3/uL Immature Granulocyte # (Auto) 0.1 0.0-0.1 10^3/uL Sodium Level 135 135-145 MMOL/L Potassium Level 4.2 3.6-5.0 MMOL/L Chloride Level 104 98-107 MMOL/L Carbon Dioxide Level 22 21-32 MMOL/L Anion Gap 9 5-14 MMOL/L Blood Urea Nitrogen 14 7-18 MG/DL Creatinine 0.58 L 0.60-1.30 MG/DL Estimat Glomerular Filtration Rate 88 BUN/Creatinine Ratio 24 Glucose Level 109 H 70-105 MG/DL Calcium Level 7.7 L 8.5-10.1 MG/DL Corrected Calcium 8.8 8.5-10.1 MG/DL Phosphorus Level 2.0 L 2.3-4.7 MG/DL Magnesium Level 1.9 1.6-2.4 MG/DL Total Bilirubin 1.6 H 0.1-1.0 MG/DL Aspartate Amino Transf (AST/SGOT) 21 5-34 U/L Alanine Aminotransferase (ALT/SGPT) 9 0-55 U/L Alkaline Phosphatase 57 40-136 U/L Total Protein 4.4 L 6.4-8.2 GM/DL Albumin 2.6 L 3.2-4.5 GM/DL Test 10/17/21 15:31 Range/Units Glucometer 176 H 70-110 MG/DL Diagnosis/Problems Diagnosis/Problems (1) Permanent atrial fibrillation Assessment & Plan: Unclear 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 She was on apixaban at home but no rate controlling agents. She did have some tachycardia following her hip surgery. She was placed on digoxin. She had been having some low blood pressures postoperatively but now her blood pressures are improved. I will start her on low-dose beta-darwin. Her apixaban has been reordered. (2) Primary hypertension Assessment & Plan: She was taking spironolactone and furosemide at home. Both of these are on hold. I will be starting her on low-dose beta-darwin for the atrial fibrillation and we will see how her blood pressure response to this medication. (3) Cardiomyopathy Assessment & Plan: Her echocardiogram during this admission shows mild left ventricular systolic dysfunction. I will start her on metoprolol succinate. I am not sure she will tolerate any of the other guideline directed medical therapy due to low blood pressures. (4) Pulmonary hypertension Assessment & Plan: Unknown if this is acute or chronic. Given her advanced age and dementia, I recommend we manage this conservatively. She had been on apixaban prior to admission for atrial fibrillation and therefore, a pulmonary embolism would be unlikely. (5) Mixed hyperlipidemia Assessment & Plan: Continue atorvastatin. (6) Normocytic anemia Assessment & Plan: This was present at the time of admission. Her hemoglobin has been reasonably stable. Apixaban has been reordered. YESSICA HERNANDEZ JR, MD Oct 17, 2021 18:58
[2021-10-17 19:34] VITALS: BP 145/63
[2021-10-17] MEDS: APIXABAN 5 MG (ELIQUIS) TABLET PO SCH (20:43)
[2021-10-17] MEDS: DONEPEZIL 10 MG (ARICEPT) TAB PO SCH (20:43)
[2021-10-17] MEDS ORDERED: meTOprolol TARTRATE 25 MG (LOPRESSOR) TABLET PO SCH (21:00)
[2021-10-17 23:13] VITALS: BP 142/60
[2021-10-18 04:27] VITALS: BP 135/62
[2021-10-18] MEDS: POTASSIUM CL 10MEQ/50ML IVPB 50 ML IV SCH (06:00)
[2021-10-18] MEDS: KCL 20 MEQ TAB (K-DUR) PO SCH (06:00)
[2021-10-18] MEDS: MAGNESIUM 1 GM/100 ML IVPB 100 ML IV SCH ×2 (06:00→07:01)
[2021-10-18 06:23] LABS: BASOPHILS % (AUTO) 0 % (0-10); EOSINOPHILS # (AUTO) 0.1 10^3/uL (0.0-0.3); EOSINOPHILS % (AUTO) 0 % (0-10); HEMATOCRIT 27 % (35-52); HEMOGLOBIN 8.6 g/dL (11.5-16.0); LYMPHOCYTES # (AUTO) 1.1 10^3/uL (1.0-4.0); LYMPHOCYTES % (AUTO) 9 % (12-44); MEAN CORPUSCULAR HEMOGLOBIN 30 pg (25-34); MEAN CORPUSCULAR HGB CONC 33 g/dL (32-36); MEAN CORPUSCULAR VOLUME 93 fL (80-99); MEAN PLATELET VOLUME 10.3 fL (9.0-12.2); MONOCYTES # (AUTO) 0.8 10^3/uL (0.0-1.0); MONOCYTES % (AUTO) 7 % (0-12); NEUTROPHILS # (AUTO) 9.6 10^3/uL (1.8-7.8); NEUTROPHILS % (AUTO) 82 % (42-75); PLATELET COUNT 195 10^3/uL (130-400); WHITE BLOOD COUNT 11.7 10^3/uL (4.3-11.0)
[2021-10-18 06:36] LABS: ALBUMIN 2.7 GM/DL (3.2-4.5); POTASSIUM 4.2 MMOL/L (3.6-5.0)
[2021-10-18] MEDS: rOPINIRole 0.25 MG (REQUIP) TAB PO SCH (06:37)
[2021-10-18 06:38] LABS: TOTAL PROTEIN 4.6 GM/DL (6.4-8.2)
[2021-10-18 06:40] LABS: BILIRUBIN,TOTAL 1.8 MG/DL (0.1-1.0)
[2021-10-18] MEDS: inSUlin ASPART (NovoLOG) 1 UNIT/0.01 ML (CHARGE PER UNIT) SC SCH ×2 (06:41→12:07)
[2021-10-18 06:42] LABS: CREATININE SERUM 0.6 MG/DL (0.60-1.30); PHOSPHORUS 1.6 MG/DL (2.3-4.7)
[2021-10-18 06:45] LABS: MAGNESIUM 1.6 MG/DL (1.6-2.4)
--- NOTE | 2021-10-18 06:58 | Progress Note ---
Standard Progress Note Progress Notes/Assess & Plan Date Seen by a Provider: Oct 18, 2021 Time Seen by a Provider: 06:57 Progress/Assessment & Plan In ICU Vital Signs Date Time Temp Pulse Resp B/P (MAP) Pulse Ox O2 Delivery O2 Flow Rate FiO2 10/14/21 07:55 36.0 10/14/21 07:48 63 10/14/21 07:21 36.5 71 18 129/45 98 Room Air 10/14/21 06:11 66 15 108/36 (60) 94 Room Air 10/14/21 05:48 36.0 71 18 111/40 98 Room Air 10/14/21 05:33 36.4 72 16 122/39 73 Room Air 10/14/21 05:03 36.1 10/14/21 05:01 70 123/45 10/14/21 05:00 75 16 113/56 (65) 96 Room Air 10/14/21 04:03 36.6 10/14/21 04:00 98 Room Air 10/14/21 04:00 70 18 123/45 (66) 97 Room Air 10/14/21 03:00 89 24 129/50 (67) 98 Room Air 10/14/21 02:00 75 20 119/55 (83) 99 Room Air 10/14/21 01:00 80 10/14/21 01:00 77 132/44 (79) 99 Room Air 10/14/21 00:02 36.8 10/14/21 00:00 99 Room Air 10/14/21 00:00 87 14 123/47 (90) 100 Room Air 10/13/21 23:00 90 13 125/47 (68) 99 Room Air 10/13/21 22:00 61 17 132/52 (66) 98 Room Air 10/13/21 21:00 89 12 108/48 (61) 98 Room Air 10/13/21 20:00 98 Room Air 10/13/21 20:00 86 27 80/53 (59) 98 Room Air 10/13/21 19:46 35.9 Room Air 10/13/21 19:42 35.5 10/13/21 19:00 76 20 90/51 (60) 100 High Flow N/C 3.00 10/13/21 19:00 71 10/13/21 18:00 80 19 96/60 (72) 100 High Flow N/C 3.00 10/13/21 17:20 98 High Flow N/C 3.00 10/13/21 17:00 High Flow N/C 15.00 10/13/21 17:00 90 31 97/49 (65) 97 OxyMask 15.00 10/13/21 16:00 81 20 112/68 (83) 98 OxyMask 15.00 10/13/21 15:48 35.8 10/13/21 15:00 90 14 103/64 (77) 98 OxyMask 15.00 10/13/21 14:00 89 14 131/110 (117) 98 OxyMask 15.00 10/13/21 13:00 84 16 129/75 (93) 100 OxyMask 15.00 10/13/21 13:00 96 10/13/21 12:35 104 70/46 10/13/21 12:00 89 15 119/100 (106) 100 OxyMask 15.00 10/13/21 11:45 High Flow N/C 15.00 10/13/21 11:35 OxyMask 15 10/13/21 11:30 36.2 16 99/40 (59) 100 OxyMask 15 10/13/21 11:25 99/40 10/13/21 11:20 16 83/31 (48) 100 OxyMask 15 10/13/21 11:20 OxyMask 15 10/13/21 11:12 104 10/13/21 11:10 20 108/41 (63) 100 OxyMask 15 10/13/21 11:05 20 57/46 (50) 99 OxyMask 15 10/13/21 11:05 OxyMask 15 10/13/21 11:00 120 30 90/66 (74) 94 OxyMask 15.00 10/13/21 11:00 20 112/99 (103) 100 OxyMask 15 10/13/21 10:55 16 87/67 (74) 96 OxyMask 15 10/13/21 10:50 OxyMask 15 10/13/21 10:45 16 67/53 (58) 98 OxyMask 15 10/13/21 10:37 OxyMask 15 10/13/21 10:37 36.6 16 75/35 (48) 100 OxyMask 15 I & O 10/14/21 07:00 Intake Total 3777 ml Output Total 560 ml Balance 3217 ml Laboratory Tests Test 10/13/21 10:44 10/13/21 11:07 10/13/21 12:19 10/13/21 16:03 Range/Units Glucometer 356 H 329 H 70-110 MG/DL Blood Gas Puncture Site RT RAD Blood Gas Patient Temperature 35.3 Arterial Blood pH 7.36 L 7.37-7.43 Arterial Blood Partial Pressure CO2 36 35-45 MMHG Arterial Blood Partial Pressure O2 168 H 79-93 MMHG Arterial Blood HCO3 20 L 23-27 MMOL/L Arterial Blood Total CO2 21.3 21.0-31.0 MMOL/L Arterial Blood Oxygen Saturation 100 94-100 % Arterial Blood Base Excess -4.8 L -2.5-2.5 MMOL/L Bc Test YES-POS Blood Gas Ventilator Setting NO Blood Gas Inspired Oxygen NA White Blood Count 20.3 H 4.3-11.0 10^3/uL Red Blood Count 2.74 L 3.80-5.11 10^6/uL Hemoglobin 8.6 #L 11.5-16.0 g/dL Hematocrit 26 L 35-52 % Mean Corpuscular Volume 96 80-99 fL Mean Corpuscular Hemoglobin 31 25-34 pg Mean Corpuscular Hemoglobin Concent 33 32-36 g/dL Red Cell Distribution Width 12.6 10.0-14.5 % Platelet Count 184 130-400 10^3/uL Mean Platelet Volume 10.8 9.0-12.2 fL Immature Granulocyte % (Auto) 1 % Neutrophils (%) (Auto) 90 H 42-75 % Lymphocytes (%) (Auto) 3 L 12-44 % Monocytes (%) (Auto) 7 0-12 % Eosinophils (%) (Auto) 0 0-10 % Basophils (%) (Auto) 0 0-10 % Neutrophils # (Auto) 18.2 H 1.8-7.8 10^3/uL Lymphocytes # (Auto) 0.6 L 1.0-4.0 10^3/uL Monocytes # (Auto) 1.3 H 0.0-1.0 10^3/uL Eosinophils # (Auto) 0.0 0.0-0.3 10^3/uL Basophils # (Auto) 0.0 0.0-0.1 10^3/uL Immature Granulocyte # (Auto) 0.2 H 0.0-0.1 10^3/uL Sodium Level 135 135-145 MMOL/L Potassium Level 5.3 H 3.6-5.0 MMOL/L Chloride Level 102 98-107 MMOL/L Carbon Dioxide Level 19 L 21-32 MMOL/L Anion Gap 14 5-14 MMOL/L Blood Urea Nitrogen 18 7-18 MG/DL Creatinine 1.04 0.60-1.30 MG/DL Estimat Glomerular Filtration Rate 52 BUN/Creatinine Ratio 17 Glucose Level 374 H 70-105 MG/DL Calcium Level 7.7 L 8.5-10.1 MG/DL Test 10/13/21 17:18 10/13/21 18:14 10/13/21 20:27 10/14/21 03:40 Range/Units Stool Occult Blood Immunoassay POSITIVE H NEGATIVE White Blood Count 23.7 H 15.5 H 4.3-11.0 10^3/uL Red Blood Count 2.88 L 1.82 L 3.80-5.11 10^6/uL Hemoglobin 8.8 L 5.6 #*L 11.5-16.0 g/dL Hematocrit 28 L 18 *L 35-52 % Mean Corpuscular Volume 97 96 80-99 fL Mean Corpuscular Hemoglobin 31 31 25-34 pg Mean Corpuscular Hemoglobin Concent 32 32 32-36 g/dL Red Cell Distribution Width 12.6 12.5 10.0-14.5 % Platelet Count 236 146 130-400 10^3/uL Mean Platelet Volume 10.8 10.3 9.0-12.2 fL Glucometer 321 H 70-110 MG/DL Immature Granulocyte % (Auto) 1 % Neutrophils (%) (Auto) 70 42-75 % Lymphocytes (%) (Auto) 18 12-44 % Monocytes (%) (Auto) 11 0-12 % Eosinophils (%) (Auto) 0 0-10 % Basophils (%) (Auto) 0 0-10 % Neutrophils # (Auto) 10.8 H 1.8-7.8 10^3/uL Lymphocytes # (Auto) 2.8 1.0-4.0 10^3/uL Monocytes # (Auto) 1.7 H 0.0-1.0 10^3/uL Eosinophils # (Auto) 0.0 0.0-0.3 10^3/uL Basophils # (Auto) 0.0 0.0-0.1 10^3/uL Immature Granulocyte # (Auto) 0.2 H 0.0-0.1 10^3/uL Sodium Level 134 L 135-145 MMOL/L Potassium Level 4.2 3.6-5.0 MMOL/L Chloride Level 102 98-107 MMOL/L Carbon Dioxide Level 23 21-32 MMOL/L Anion Gap 9 5-14 MMOL/L Blood Urea Nitrogen 22 H 7-18 MG/DL Creatinine 1.05 0.60-1.30 MG/DL Estimat Glomerular Filtration Rate 51 BUN/Creatinine Ratio 21 Glucose Level 98 70-105 MG/DL Calcium Level 7.8 L 8.5-10.1 MG/DL Corrected Calcium 8.6 8.5-10.1 MG/DL Phosphorus Level 2.2 L 2.3-4.7 MG/DL Magnesium Level 1.7 1.6-2.4 MG/DL Total Bilirubin 0.6 0.1-1.0 MG/DL Aspartate Amino Transf (AST/SGOT) 20 5-34 U/L Alanine Aminotransferase (ALT/SGPT) 7 0-55 U/L Alkaline Phosphatase 48 40-136 U/L Total Protein 4.4 L 6.4-8.2 GM/DL Albumin 3.0 L 3.2-4.5 GM/DL Test 10/14/21 05:56 10/14/21 06:36 Range/Units Glucometer 79 82 70-110 MG/DL LLE--dressing intact pulses equal s/p L femur ORIF PT when stable Final Diagnosis no complaints Laboratory Tests Test 10/17/21 10:09 10/17/21 15:31 10/18/21 05:50 Range/Units Glucometer 133 H 176 H 70-110 MG/DL White Blood Count 11.7 H 4.3-11.0 10^3/uL Red Blood Count 2.85 L 3.80-5.11 10^6/uL Hemoglobin 8.6 L 11.5-16.0 g/dL Hematocrit 27 L 35-52 % Mean Corpuscular Volume 93 80-99 fL Mean Corpuscular Hemoglobin 30 25-34 pg Mean Corpuscular Hemoglobin Concent 33 32-36 g/dL Red Cell Distribution Width 14.5 10.0-14.5 % Platelet Count 195 130-400 10^3/uL Mean Platelet Volume 10.3 9.0-12.2 fL Immature Granulocyte % (Auto) 2 % Neutrophils (%) (Auto) 82 H 42-75 % Lymphocytes (%) (Auto) 9 L 12-44 % Monocytes (%) (Auto) 7 0-12 % Eosinophils (%) (Auto) 0 0-10 % Basophils (%) (Auto) 0 0-10 % Neutrophils # (Auto) 9.6 H 1.8-7.8 10^3/uL Lymphocytes # (Auto) 1.1 1.0-4.0 10^3/uL Monocytes # (Auto) 0.8 0.0-1.0 10^3/uL Eosinophils # (Auto) 0.1 0.0-0.3 10^3/uL Basophils # (Auto) 0.0 0.0-0.1 10^3/uL Immature Granulocyte # (Auto) 0.2 H 0.0-0.1 10^3/uL Sodium Level 132 L 135-145 MMOL/L Potassium Level 4.2 3.6-5.0 MMOL/L Chloride Level 101 98-107 MMOL/L Carbon Dioxide Level 22 21-32 MMOL/L Anion Gap 9 5-14 MMOL/L Blood Urea Nitrogen 11 7-18 MG/DL Creatinine 0.60 0.60-1.30 MG/DL Estimat Glomerular Filtration Rate 87 BUN/Creatinine Ratio 18 Glucose Level 183 H 70-105 MG/DL Calcium Level 8.0 L 8.5-10.1 MG/DL Corrected Calcium 9.0 8.5-10.1 MG/DL Phosphorus Level 1.6 L 2.3-4.7 MG/DL Magnesium Level 1.6 1.6-2.4 MG/DL Total Bilirubin 1.8 H 0.1-1.0 MG/DL Aspartate Amino Transf (AST/SGOT) 18 5-34 U/L Alanine Aminotransferase (ALT/SGPT) 10 0-55 U/L Alkaline Phosphatase 66 40-136 U/L Total Protein 4.6 L 6.4-8.2 GM/DL Albumin 2.7 L 3.2-4.5 GM/DL Vital Signs Date Time Temp Pulse Resp B/P (MAP) Pulse Ox O2 Delivery O2 Flow Rate FiO2 10/18/21 04:27 37.2 71 18 135/62 (86) 95 Room Air 10/18/21 01:00 83 10/17/21 23:13 37.2 71 18 142/60 (87) 95 Room Air 10/17/21 21:05 Room Air 10/17/21 19:34 36.7 62 18 145/63 (90) 96 Room Air 10/17/21 19:00 50 10/17/21 15:50 36.1 68 18 164/72 (102) 96 Room Air 10/17/21 13:00 68 10/17/21 11:41 36.9 65 18 136/61 (86) 98 Room Air 10/17/21 08:17 36.5 58 18 132/57 (82) 96 Room Air 10/17/21 08:00 Room Air 10/17/21 07:00 46 I & O 10/18/21 07:00 Intake Total 1770 ml Output Total 1700 ml Balance 70 ml LLE no calf tenderness. Brace in place s/p ORIF L femur to CT today fu ten days SARAH GARCIA MD Oct 18, 2021 06:58
[2021-10-18 08:17] VITALS: BP 123/64
[2021-10-18] MEDS: PANTOPRAZOLE 40 MG (PROTONIX) VIAL IV SCH (09:09)
[2021-10-18] MEDS: DIGOXIN 0.125 MG (LANOXIN) TAB PO SCH (09:09)
[2021-10-18] MEDS: APIXABAN 5 MG (ELIQUIS) TABLET PO SCH (09:09)
[2021-10-18] MEDS: MEMANTINE 10 MG (NAMENDA) TABLET PO SCH (09:09)
--- NOTE | 2021-10-18 09:32 | Discharge Inst-Skilled Nursing ---
Discharge Inst-Skilled NF Chief Complaint Nieves Cavazos is an 85 year old female with PMH HTN, T2DM, HLD, GERD, dementia, RLS, who presented [facility] a [facility] her [facility]. She was found to have a distal femur fracture. She was seen after returning from the OR in the ICU. She developed hypotension and AFib with RVR. Dr. Russell was also at the bedside and was starting her on IV amiodarone and obtaining an echocardiogram. She is still under the effects of sedation and is unable to provide any history. Consult/Follow Up/Orders Follow Up Appt.: With Dr Mohr 10/[address] Bueno in 1 week. Skilled NF Admit to: [facility] Certification ([facility]) I certify that SNF services are required to be given on an inpatient basis because of the above named patient's need for senior living care on a continuing basis for the conditions(s) for which he/she was receiving inpatient hospital services prior to his/her transfer to the SNF. Shelter Facility Order: Nursing Services, Property Supervisor-Evaluate & Treat, Physical Therapy-Evaluate & Treat Oxygen Delivery Method: Room Air Discharge Diet: Soft Diet Daily Activity as Tolerated: Yes Resuscitation Status: Do Not Resuscitate New & Resume Previous Orders Marzena Skinner Oct 18, 2021 09:29 MARZENA SKINNER MD Oct 18, 2021 09:31
[2021-10-18 11:27] VITALS: BP 122/48
[2021-10-18] MEDS ORDERED: MTP25TSR PO (11:33)
== END 2021-10-18 14:35 | DRG 480 ==
LOC: ER 17:12 → 4TH 18:30 → ICU 10-13 11:08 → 4TH 10-16 11:47
PROVIDERS: ADMIT Internal Medicine; ATTEND Internal Medicine
PROC: 02HV33Z Insertion of Infusion Device into Superior Vena Cava, Percutaneous Approach (ICD-10-PCS; 2021-10-13)
PROC: 5A0935A Assistance with Respiratory Ventilation, Less than 24 Consecutive Hours, High Flow/Velocity Cannula (ICD-10-PCS; 2021-10-13)
PROC: 0QS904Z Reposition Left Femoral Shaft with Internal Fixation Device, Open Approach (ICD-10-PCS; principal; 2021-10-13 07:47)
DX: S72.402A Unspecified fracture of lower end of left femur, initial encounter for closed fracture (principal); R57.8 Other shock; D62 Acute posthemorrhagic anemia; I48.21 Permanent atrial fibrillation; I42.9 Cardiomyopathy, unspecified; W19.XXXA Unspecified fall, initial encounter; I10 Essential (primary) hypertension; R09.02 Hypoxemia; I95.81 Postprocedural hypotension; K21.9 Gastro-esophageal reflux disease without esophagitis; F03.90 Unspecified dementia, unspecified severity, without behavioral disturbance, psychotic disturbance, mood disturbance, and anxiety; G25.81 Restless legs syndrome; Y92.129 Unspecified place in nursing home as the place of occurrence of the external cause; E11.65 Type 2 diabetes mellitus with hyperglycemia; I87.2 Venous insufficiency (chronic) (peripheral); I27.20 Pulmonary hypertension, unspecified; E78.2 Mixed hyperlipidemia; E86.1 Hypovolemia; R06.02 Shortness of breath
CPT/HCPCS: 36415; 51702; 70450; 71045; 72125; 73502; 73562; 73610; 76000; 80048; 80053; 80162; 82274; 82728; 82805; 82947; 83540; 83550; 83735; 84100; 85007; 85014; 85018; 85025; 85027; 85610; 86850; 86900; 86901; 86920; 93005; 93306; 96360

== ENCOUNTER 2021-10-28 11:25 | Inpatient (IN) | payer MEDICARE, MEDICAID ==
[2021-10-28] VITALS (9 sets, daily range): BP systolic 99–125; BP diastolic 55–82
[~2021-10-28] VITALS: Ht 160 cm; Wt 91.0 kg
[~2021-10-28 11:25] MED LIST: ACET325T38 PO; APIX5TAB PO; ASPI-1238 PO; ATOR40TA70 PO; CHOL10004 PO; CITA10TA9 PO; DONE10TA41 PO; FERR324T4 PO; FURO40TA4 PO; GLIM2TAB4 PO; INSU100V SC; INSU100V SQ; INSU100V6 SC; MAGN400O7 PO; MAGN400T39 PO; MEMA10TA57 PO; MENT118G TP; MTP25TSR PO; MULT-593 PO; PANT20TA18 PO; POLY17PO6 PO; POTA10TA37 PO; ROPI0.5T4 PO; SNN187T PO; SPIR25TA5 PO
[2021-10-28] MEDS ORDERED: PANTOPRAZOLE 40 MG (PROTONIX) VIAL IV ONE (12:30)
[2021-10-28] MEDS ORDERED: ASPIRIN 81 MG CHEW (CHILDREN'S ASA) PO ONE (12:30)
[2021-10-28] MEDS ORDERED: NS IV 1000 ML 1,000 ML IV SCH (12:30)
--- NOTE | 2021-10-28 12:35 | ED Chest Pain ---
General Chief Complaint: Chest Pain Stated Complaint: CP Source: patient, family (granddaughter) Exam Limitations: clinical condition (Hard of hearing) History of Present Illness Date Seen by Provider: Oct 28, 2021 Time Seen by Provider: 11:29 Initial Comments Patient to the ER by private conveyance with her significant other and chief complaint that she was met at Dr. Mohr's office to have dylan removed from [facility] and her daughter noticed that she has nauseated and threw up as well as complaining of some chest discomfort pointing to her left swollen arm and shoulder. No history of coronary disease but she does have atrial fibrillation on Xarelto. She had a fall and broke her leg about 10 days ago had a surgically repaired and never came off the Xarelto. She had a central line because she was having atrial fibrillation and rapid ventricular response in the ICU for [address] Mohr did remove his dlyan and said that the wound looked great no signs of infection and was healing well. She has not had any fevers or chills. No known sick contacts. Apparently she had a fall this morning and struck her head getting out of bed with staff. She is not complaining of any pain right now. She denies nausea right now. She had a Su catheter placed with her left leg fracture 10 days ago. 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 Allergies and Home Medications Allergies Coded Allergies: No Known Drug Allergies (Unverified , 10/12/21) Patient Home Medication List Home Medication List Reviewed: Yes Acetaminophen (Tylenol) 325 Mg Tablet, 650 MG PO Q6H PRN for PAIN-MILD (1-4), (Reported) Entered as Reported by: NADEEN LOU on 10/14/21 09 Apixaban (Eliquis) 5 Mg Tablet, 5 MG PO Q12H, (Reported) Entered as Reported by: NADENE LOU on 10/14/21940 Aspirin (Aspirin EC) 81 Mg Tablet.dr, 81 MG PO DAILY, (Reported) Entered as Reported by: NADEEN LOU on 10/14/21940 Atorvastatin Calcium (Atorvastatin Calcium) 40 Mg Tablet, 40 MG PO HS, (Reported) Entered as Reported by: NADEEN LOU on 10/14/21940 Cholecalciferol (Vitamin D3) (Vitamin D3) 25 Mcg (1000 Unit) Tablet, 25 MCG PO DAILY, (Reported) Entered as Reported by: NADEEN LOU on 10/14/21940 Citalopram Hydrobromide (Citalopram HBr) 10 Mg Tablet, 10 MG PO DAILY, (Reported) Entered as Reported by: NADEEN LOU on 10/14/21940 Donepezil HCl (Donepezil HCl) 10 Mg Tablet, 10 MG PO HS, (Reported) Entered as Reported by: NADEEN LOU on 10/14/21940 Ferrous Sulfate (Ferrous Sulfate) 324 Mg (65 Mg Iron) Tablet.dr, 324 MG PO DAILY, (Reported) Entered as Reported by: NADEEN LOU on 10/14/21940 Furosemide (Furosemide) 40 Mg Tablet, 40 MG PO DAILY, (Reported) Entered as Reported by: NADEEN LOU on 10/14/21940 Glimepiride (Glimepiride) 2 Mg Tablet, 2 MG PO DAILY, (Reported) Entered as Reported by: NADEEN LOU on 10/14/21940 Magnesium Hydroxide (Milk of Magnesia) 400 Mg/5 Ml Oral.susp, 30 ML PO HS PRN for CONSTIPATION-7TH LINE, (Reported) Entered as Reported by: NADEEN LOU on 10/14/21940 Magnesium Oxide (Magnesium) 400 Mg Magnesium Tablet, 400 MG PO BID, (Reported) Entered as Reported by: NADEEN LOU on 10/14/21940 Memantine HCl (Memantine HCl) 10 Mg Tablet, 10 MG PO Q12H, (Reported) Entered as Reported by: NADEEN LOU on 10/14/21940 Menthol (Biofreeze) 4 % Gel..ml., 1 APPLIC TP QID PRN for PAIN-BREAKTHROUGH, (Reported) Entered as Reported by: NADEEN LOU on 10/14/21940 Metoprolol Succinate (Metoprolol Succinate) 25 Mg Tab.er.24h, 25 MG PO DAILY Prescribed by: MARZENA DAVIES on 10/18/21 1133 Multivitamin with Minerals (Multiple Vitamin) 1 Each Tablet, 1 EACH PO DAILY, (Reported) Entered as Reported by: NADEEN LOU on 10/14/21940 Pantoprazole Sodium (Pantoprazole Sodium) 20 Mg Tablet.dr, 20 MG PO DAILY, (Reported) Entered as Reported by: NADEEN LOU on 10/14/21940 Polyethylene Glycol 3350 (Miralax) 17 Gram Powd.pack, 17 GM PO Q72H PRN for CONSTIPATION-2ND LINE, (Reported) Entered as Reported by: NADEEN LOU on 10/14/21940 Potassium Chloride (Potassium Chloride) 10 Meq Tab.er.prt, 10 MEQ PO Q12H, (Reported) Entered as Reported by: NADEEN LOU on 10/14/21940 Ropinirole HCl (Ropinirole HCl) 0.5 Mg Tablet, 0.5 MG PO Q8H, (Reported) Entered as Reported by: NADEEN LOU on 10/14/21940 Sennosides (Senna Lax) 8.6 Mg Tablet, 8.6 MG PO HS PRN for CONSTIPATION-5TH LINE, (Reported) Entered as Reported by: NADEEN LOU on 10/14/21940 Review of Systems Review of Systems Constitutional: No chills, No diaphoresis, No fever; malaise EENTM: No Blurred Vision, No Double Vision Respiratory: Denies Cough, Denies Shortness of Air Cardiovascular: Chest Pain, Lightheadedness Gastrointestinal: Denies Abdominal Pain, Denies Constipated, Denies Diarrhea; Nausea, Vomiting Genitourinary: See HPI; Denies Burning, Denies Discharge, Denies Drainage Musculoskeletal: No back pain, No joint pain Skin: No pruritus, No rash Psychiatric/Neurological: Denies Anxiety, Denies Depressed All Other Systems Reviewed Negative Unless Noted: Yes Past Qjrsnao-Aymkfu-Twjaef Hx Patient Social History Tobacco Use?: No Use of E-Cig and/or Vaping dev: No Substance use?: No Past Medical History Currently Using CPAP: No Currently Using BIPAP: No High Cholesterol, Hypertension Diabetes, Insulin dep Family Medical History Other Conditions/Hx Physical Exam Vital Signs Vital Signs - First Documented 10/28/21 11:28 Temp 36.5 Pulse 115 Resp 24 B/P (MAP) 107/60 (76) Pulse Ox 95 Capillary Refill : Height, Weight, BMI Height: '" Weight: lbs. oz. kg; 32.10 BMI Method: General Appearance: Chronically ill, Moderate Distress HEENT: PERRL/EOMI, TMs Normal, Normal ENT Inspection (Atraumatic head); No Moist Mucous Membranes Neck: Full Range of Motion, Normal Inspection, Non Tender Respiratory: Chest Non Tender, Lungs Clear, Normal Breath Sounds, No Accessory Muscle Use, No Respiratory Distress Cardiovascular: Regular Rate, Rhythm, No Edema, Normal Peripheral Pulses Gastrointestinal: Normal Bowel Sounds, Non Tender, Soft Extremity: Normal Capillary Refill, Non Tender Neurologic/Psychiatric: Alert, Oriented x3, Other (Weakness in the left arm and left facial droop. NIH one-point for left facial droop.) Skin: Normal Color, Warm/Dry Focused Exam Sepsis Stage: Sepsis Possible Source: Genitouriary Lactate Level 10/28/21 13:45: Lactic Acid Level 2.49*H 10/28/21 16:35: Lactic Acid Level 1.75 Time of Focused Exam: 15:10 Respiratory: Lungs Clear, Normal Breath Sounds, No Accessory Muscle Use, No Respiratory Distress Cardiovascular: Regular Rate, Rhythm, Normal Peripheral Pulses Capillary Refill: Less Than 3 Seconds Peripheral Pulses: 2+ Radial Pulses (R), 2+ Radial Pulses (L) Skin: normal color, warm/dry Lactic Acid Level Laboratory Tests Test 10/28/21 13:45 10/28/21 16:35 Lactic Acid Level 2.49 MMOL/L (0.50-2.00) *H 1.75 MMOL/L (0.50-2.00) Within 3hrs of presentation: Admin fluids, Admin 30ml/kg IBW due to BMI>30, Admin ABX, Blood cultures prior to ABX's, Focus exam, Lactate level Progress/Results/Core Measures Results/Orders Lab Results Laboratory Tests Test 10/28/21 11:40 10/28/21 12:40 10/28/21 13:45 10/28/21 16:35 Range/Units White Blood Count 12.4 H 4.3-11.0 10^3/uL Red Blood Count 3.43 L 3.80-5.11 10^6/uL Hemoglobin 10.3 L 11.5-16.0 g/dL Hematocrit 34 L 35-52 % Mean Corpuscular Volume 98 80-99 fL Mean Corpuscular Hemoglobin 30 25-34 pg Mean Corpuscular Hemoglobin Concent 31 L 32-36 g/dL Red Cell Distribution Width 14.6 H 10.0-14.5 % Platelet Count 445 H 130-400 10^3/uL Mean Platelet Volume 10.8 9.0-12.2 fL Immature Granulocyte % (Auto) 1 % Neutrophils (%) (Auto) 93 H 42-75 % Lymphocytes (%) (Auto) 2 L 12-44 % Monocytes (%) (Auto) 4 0-12 % Eosinophils (%) (Auto) 0 0-10 % Basophils (%) (Auto) 0 0-10 % Neutrophils # (Auto) 11.6 H 1.8-7.8 10^3/uL Lymphocytes # (Auto) 0.3 L 1.0-4.0 10^3/uL Monocytes # (Auto) 0.4 0.0-1.0 10^3/uL Eosinophils # (Auto) 0.0 0.0-0.3 10^3/uL Basophils # (Auto) 0.0 0.0-0.1 10^3/uL Immature Granulocyte # (Auto) 0.1 0.0-0.1 10^3/uL Neutrophils % (Manual) 92 % Lymphocytes % (Manual) 1 % Monocytes % (Manual) 4 % Band Neutrophils 3 % Hypochromasia SLIGHT Anisocytosis SLIGHT Wendi Cells SLIGHT Prothrombin Time 16.4 H 12.2-14.7 SEC INR Comment 1.3 0.8-1.4 Activated Partial Thromboplast Time 31 24-35 SEC Sodium Level 135 135-145 MMOL/L Potassium Level 4.4 3.6-5.0 MMOL/L Chloride Level 96 L 98-107 MMOL/L Carbon Dioxide Level 24 21-32 MMOL/L Anion Gap 15 H 5-14 MMOL/L Blood Urea Nitrogen 15 7-18 MG/DL Creatinine 0.68 0.60-1.30 MG/DL Estimat Glomerular Filtration Rate 84 BUN/Creatinine Ratio 22 Glucose Level 351 H 70-105 MG/DL Calcium Level 8.9 8.5-10.1 MG/DL Corrected Calcium 9.5 8.5-10.1 MG/DL Magnesium Level 1.7 1.6-2.4 MG/DL Total Bilirubin 4.5 H 0.1-1.0 MG/DL Aspartate Amino Transf (AST/SGOT) 364 H 5-34 U/L Alanine Aminotransferase (ALT/SGPT) 180 H 0-55 U/L Alkaline Phosphatase 650 H 40-136 U/L Myoglobin 44.9 10.0-92.0 NG/ML Troponin I 0.036 H 0.141 H <0.028 NG/ML B-Type Natriuretic Peptide 223.5 H <100.0 PG/ML Total Protein 6.1 L 6.4-8.2 GM/DL Albumin 3.2 3.2-4.5 GM/DL Urine Color YELLOW Urine Clarity CLOUDY Urine pH 8.5 5-9 Urine Specific [place] 1.010 L 1.016-1.022 Urine Protein NEGATIVE NEGATIVE Urine Glucose (UA) 3+ H NEGATIVE Urine Ketones NEGATIVE NEGATIVE Urine Nitrite POSITIVE H NEGATIVE Urine Bilirubin NEGATIVE NEGATIVE Urine Urobilinogen 1.0 < = 1.0 MG/DL Urine Leukocyte Esterase 1+ H NEGATIVE Urine RBC (Auto) 2+ H NEGATIVE Urine RBC 5-10 H /HPF Urine WBC 10-25 H /HPF Urine Crystals PRESENT H /LPF Urine Amorphous Sediment LARGE ALLISON PHOSPHATE H /LPF Urine Bacteria LARGE H /HPF Urine Casts NONE /LPF Urine Mucus NEGATIVE /LPF Urine Culture Indicated YES Lactic Acid Level 2.49 *H 1.75 0.50-2.00 MMOL/L My Orders Orders - MITZI COATES Ekg Tracing (10/28/21 11:) Continuous Ekg Monitoring (10/28/21 11:) Cbc With Automated Diff (10/28/21 12:) Magnesium (10/28/21 12:28) Chest 1 View, Ap/Pa Only (10/28/21 12:28) Comprehensive Metabolic Panel (10/28/21 12:) Myoglobin Serum (10/28/21 12:28) Protime With Inr (10/28/21 12:) Partial Thromboplastin Time (10/28/21 12:) O2 (10/28/21 12:28) Lipid Panel (10/29/21 06:00) Ed Iv/Invasive Line Start (10/28/21 12:28) Bnp Phil (10/28/21 12:28) Troponin I [place] (10/28/21 12:28) Aspirin Chewable Tablet (Baby Aspirin Ch (10/28/21 12:30) Ed Iv/Invasive Line Start (10/28/21 12:28) Ns Iv 1000 Ml (Sodium Chloride 0.9%) (10/28/21 12:30) Us Venous Upper Ext Lt (10/28/21 12:28) Ct Head/Cervical Spine Wo (10/28/21 12:28) Pantoprazole Injection (Protonix Injecti (10/28/21 12:30) Manual Differential (10/28/21 11:40) Ondansetron Injection (Zofran Injectio (10/28/21 12:45) Ua Culture If Indicated (10/28/21 12:38) Urine Culture (10/28/21 12:40) Insulin (Regular) Human (Novolin R (Per (10/28/21 13:15) Ed Iv/Invasive Line Start (10/28/21 13:06) Ns Iv 500 Ml (Sodium Chloride 0.9%) (10/28/21 13:15) Ceftriaxone 1 Gm Pre-Mix (Rocephin 1 Gm (10/28/21 13:15) Blood Culture (10/28/21 13:06) Sputum Culture (10/28/21 13:06) Ed Iv/Invasive Line Start (10/28/21 13:06) Ed Iv/Invasive Line Start (10/28/21 13:06) Vital Signs Adult Sepsis Patie Q15M (10/28/21 13:06) O2 (10/28/21 13:06) Remove Rings In Anticipation O (10/28/21 13:06) Lactic Acid Analyzer (10/28/21 13:06) Troponin I [place] (10/28/21 14:49) Medications Given in ED Current Medications Medications Dose Ordered Sig/[place] Route Start Time Stop Time Status Last Admin Dose Admin Aspirin 324 mg ONCE ONCE PO 10/28/21 12:30 10/28/21 12:32 DC 10/28/21 13:03 324 MG Ceftriaxone Sodium/Dextrose 50 ml @ 100 mls/hr ONCE ONCE IV 10/28/21 13:15 10/28/21 13:44 DC 10/28/21 13:31 100 MLS/HR Insulin Human Regular 5 unit ONCE ONCE SC 10/28/21 13:15 10/28/21 13:16 DC 10/28/21 13:31 5 UNIT Ondansetron HCl 4 mg ONCE ONCE IVP 10/28/21 12:45 10/28/21 12:46 DC 10/28/21 13:03 4 MG Pantoprazole 40 mg ONCE ONCE IV 10/28/21 12:30 10/28/21 12:32 DC 10/28/21 13:03 40 MG Sodium Chloride 500 ml @ 0 mls/hr Q0M ONCE IV 10/28/21 13:15 10/28/21 13:16 DC 10/28/21 13:31 500 MLS/HR Vital Signs/I&O 10/28/21 11:28 Temp 36.5 Pulse 115 Resp 24 B/P (MAP) 107/60 (76) Pulse Ox 95 Progress Progress Note : Time: 14:45 Progress Note Ultrasound of the left upper extremity to rule out blood clots despite her Xarelto. Chest x-ray labs troponin and EKG. We will repeat a troponin now and 2 hours since the first 1 was done to trend it. EKG did not demonstrate any relevant ST changes. She did present in atrial fibrillation with tachycardia but seems more likely she has sepsis related to her significant UTI than she was actually in atrial fibrillation with rapid ventricular response. After some fluids and antibiotics her heart rate is down below 100, still in atrial fibrillation. She does not any further work-up for stroke as this just appears to be a recru descence of symptoms brought on probably by her UTI/sepsis. She is looking more bright and alert after IV fluids. Her first troponin is back barely detectable. We will do a delta 2-hour troponin. She does not have a history of coronary disease just atrial fibrillation. Initial ECG Impression Date: Oct 28, 2021 Initial ECG Impression Time: 12:16 Initial ECG Rate: 121 Initial ECG Rhythm: A Fib/Flutter Initial ECG Intervals: QT (394) Initial ECG Impression: Atrial Fibrillation w/RVR Comment Atrial fibrillation with tachycardia versus rapid ventricular response. No clinically relevant ST changes. Diagnostic Imaging Diagonstic Imaging: Xray Plain Films/CT/US/NM/MRI: chest Comments [facility] [place], [place] NAME: DANNY ZAYAS [place] [facility] REC#: [id number] PT STATUS: REG ER : 1935 PHYSICIAN: MITZI COATES MD ADMIT DATE: 10/28/21/ER Draft Date of Exam:10/28/21 CHEST 1 VIEW, AP/PA ONLY INDICATION: Chest pain. EXAMINATION: Portable chest at 1:56 PM. FINDINGS: There is cardiomegaly. The pulmonary vascularity is normal. The lungs are clear. There are no effusions or pneumothoraces. IMPRESSION: No acute abnormalities in the chest. Dictated on workstation # [id number] Dict: 10/28/21 1406 Trans: 10/28/21 1408 [id number] Interpreted by: VENICE MORTON MD Electronically signed by: Reviewed: Reviewed by Vt Diagonstic Imaging: CT Plain Films/CT/US/NM/MRI: c-spine, head Comments [facility] [place] [place] NAME: DANNY ZAYAS [facility] REC#: [id number] PT STATUS: REG ER : 1935 PHYSICIAN: MITZI COATES MD ADMIT DATE: 10/28/21/ER Draft Date of Exam:10/28/21 CT HEAD/CERVICAL SPINE WO PROCEDURE: CT head and CT cervical spine without contrast. TECHNIQUE: Multiple contiguous axial images were obtained through the brain and cervical spine without the use of intravenous contrast. Sagittal and coronal reformations through the cervical spine were then performed. Auto Exposure Controls were utilized during the CT exam to meet ALARA standards for radiation dose reduction. INDICATION: Nausea and fall. COMPARISON: Correlation is made with the prior CT head from 10/12/2021. FINDINGS: CT HEAD: A large area of encephalomalacia in the right MCA territory appears similar to the prior exam. No sulcal effacement is seen. There is no midline shift. No acute intra-axial or extra-axial hemorrhage is detected. Periventricular white matter changes are noted, consistent with chronic microvascular ischemia. There are old lacunar infarcts in the bilateral thalami. The cisterns are patent. The visualized paranasal sinuses are clear. IMPRESSION: Stable chronic changes when compared with the prior study from 10/12/2021. No acute intracranial process is detected. CT CERVICAL SPINE: The curvature and alignment of the cervical spine are normal. There is multilevel spondylosis with variable disc space narrowing and marginal spurring. There is multilevel facet arthropathy. No fracture is seen. The odontoid is intact. The prevertebral tissues are within normal limits. IMPRESSION: Cervical spondylosis. No acute bony abnormality is detected. Dictated on workstation # [id number] Dict: 10/28/21 1405 Trans: 10/28/21 1417 [id number] Interpreted by: KEVIN OLSON MD Electronically signed by: Reviewed: Reviewed by Me Diagonstic Imaging: Ultrasound Plain Films/CT/US/NM/MRI: forearm (Left arm venous Doppler) Comments Negative for DVT. [facility] [place] [place] NAME: DANNY ZAYAS [facility] REC#: [id number] PT STATUS: REG ER : 1935 PHYSICIAN: MITZI COATES MD ADMIT DATE: 10/28/21/ER Signed Date of Exam:10/28/21 US VENOUS UPPER EXT LT PROCEDURE: US venous upper extremity left. INDICATION: LUE swelling and pain post surgery and CC TECHNIQUE: Color and grayscale sonographic images with duplex Doppler evaluation of the upper extremity venous system. CORRELATION STUDY: None FINDINGS: There is no intraluminal filling defect within the visualized portion of the internal jugular, subclavian, axillary, brachial and/or basilic veins to suggest thrombus formation. Where applicable, these vessels demonstrate normal response to compression and augmentation. There is no significant soft tissue fluid collection. IMPRESSION: 1. Negative for venous thrombus of the left upper extremity. Dictated by: Dictated on workstation # [id number] Dict: 10/28/21 1342 Trans: 10/28/21 1343 DO [id number] Interpreted by: OLI GREEN DO Electronically signed by: OLI GREEN DO 10/28/21 1343 Reviewed: Reviewed by Departure Communication (Admissions) Time/Spoke to Admitting Phy: 17:46 Dr. White agrees to admit the patient on cefepime, change Su catheter in 24 hours and consult cardiology for the chest pain troponin. Time/Spoke to Consulting Phy: 17:[address] Peñaloza. He is in the [employer] and RN returned the page. Left message to return call at his convenience. Impression Primary Impression: UTI (urinary tract infection) Qualified Codes: N30.01 - Acute cystitis with hematuria Additional Impressions: Sepsis Qualified Codes: A41.9 - Sepsis, unspecified organism Chest pain Qualified Codes: R07.9 - Chest pain, unspecified Disposition: ADMITTED INPATIENT Condition: Stable Admissions Decision to Admit Reason: Admit from ER (General) Decision to Admit/Date: Oct 28, 2021 Time/Decision to Admit Time: 15:00 Departure-Patient Inst. Referrals: THUY BROOKS MD (PCP/Family) Primary Care Physician MITZI COATES Oct 28, 2021 12:35
[2021-10-28 12:36] LABS: BASOPHILS % (AUTO) 0 % (0-10); EOSINOPHILS % (AUTO) 0 % (0-10); HEMATOCRIT 34 % (35-52); HEMOGLOBIN 10.3 g/dL (11.5-16.0); LYMPHOCYTES # (AUTO) 0.3 10^3/uL (1.0-4.0); LYMPHOCYTES % (AUTO) 2 % (12-44); MEAN CORPUSCULAR HEMOGLOBIN 30 pg (25-34); MEAN CORPUSCULAR HGB CONC 31 g/dL (32-36); MEAN CORPUSCULAR VOLUME 98 fL (80-99); MEAN PLATELET VOLUME 10.8 fL (9.0-12.2); MONOCYTES # (AUTO) 0.4 10^3/uL (0.0-1.0); MONOCYTES % (AUTO) 4 % (0-12); NEUTROPHILS # (AUTO) 11.6 10^3/uL (1.8-7.8); NEUTROPHILS % (AUTO) 93 % (42-75); PLATELET COUNT 445 10^3/uL (130-400); WHITE BLOOD COUNT 12.4 10^3/uL (4.3-11.0)
[2021-10-28 12:41] LABS: ALBUMIN 3.2 GM/DL (3.2-4.5); POTASSIUM 4.4 MMOL/L (3.6-5.0)
[2021-10-28 12:42] LABS: CALCIUM 8.9 MG/DL (8.5-10.1); INR 1.3 (0.8-1.4); PROTHROMBIN TIME PATIENT 16.4 SEC (12.2-14.7)
[2021-10-28 12:43] LABS: TOTAL PROTEIN 6.1 GM/DL (6.4-8.2)
[2021-10-28 12:45] LABS: BILIRUBIN,TOTAL 4.5 MG/DL (0.1-1.0)
[2021-10-28] MEDS ORDERED: ONDANSETRON 4 MG/2 ML (SDV) Z0FRAN IVP ONE (12:45)
[2021-10-28 12:47] LABS: CREATININE SERUM 0.68 MG/DL (0.60-1.30)
[2021-10-28 12:49] LABS: BILIRUBIN,URINE NEGATIVE (NEGATIVE); CLARITY,URINE CLOUDY; COLOR,URINE YELLOW; GLUCOSE, URINE (UA) 3+ (NEGATIVE); KETONES,URINE NEGATIVE (NEGATIVE); LEUKOCYTE ESTERASE ,URINE 1+ (NEGATIVE); NITRITE,URINE POSITIVE (NEGATIVE); PH,URINE 8.5 (5-9); PROTEIN,URINE NEGATIVE (NEGATIVE)
[2021-10-28 12:50] LABS: MAGNESIUM 1.7 MG/DL (1.6-2.4)
[2021-10-28 12:59] LABS: ANISOCYTOSIS SLIGHT; BAND NEUTROPHILS 3 %; BURR CELLS SLIGHT; HYPOCHROMASIA SLIGHT; LYMPHOCYTES % (MANUAL) 1 %; MONOCYTES % (MANUAL) 4 %; NEUTROPHILS % (MANUAL) 92 %
[2021-10-28 13:01] LABS: AMORPHOUS SEDIMENT,UR LARGE AMOR PHOSPHATE /LPF; BACTERIA,URINE LARGE /HPF
[2021-10-28] MEDS ORDERED: NS IV 500 ML 500 ML IV ONE (13:15)
[2021-10-28] MEDS ORDERED: inSUlin (REGULAR) HUMAN 1 UNIT/0.01 ML (CHARGE PER UNIT) SC ONE (13:15)
[2021-10-28] MEDS ORDERED: cefTRIAXone 1 GM PRE-MIX 50 ML IV ONE (13:15)
--- NOTE | 2021-10-28 13:45 | Diagnostic Imaging Report ---
PROCEDURE: US venous upper extremity left. INDICATION: LUE swelling and pain post surgery and CC TECHNIQUE: Color and grayscale sonographic images with duplex Doppler evaluation of the upper extremity venous system. CORRELATION STUDY: None FINDINGS: There is no intraluminal filling defect within the visualized portion of the internal jugular, subclavian, axillary, brachial and/or basilic veins to suggest thrombus formation. Where applicable, these vessels demonstrate normal response to compression and augmentation. There is no significant soft tissue fluid collection. IMPRESSION: 1. Negative for venous thrombus of the left upper extremity. Dictated by: Dictated on workstation # [id number]
--- NOTE | 2021-10-28 14:09 | Diagnostic Imaging Report ---
INDICATION: Chest pain. EXAMINATION: Portable chest at 1:56 PM. FINDINGS: There is cardiomegaly. The pulmonary vascularity is normal. The lungs are clear. There are no effusions or pneumothoraces. IMPRESSION: No acute abnormalities in the chest. Dictated by: Dictated on workstation # [id number]
--- NOTE | 2021-10-28 14:18 | Diagnostic Imaging Report ---
PROCEDURE: CT head and CT cervical spine without contrast. TECHNIQUE: Multiple contiguous axial images were obtained through the brain and cervical spine without the use of intravenous contrast. Sagittal and coronal reformations through the cervical spine were then performed. Auto Exposure Controls were utilized during the CT exam to meet ALARA standards for radiation dose reduction. INDICATION: Nausea and fall. COMPARISON: Correlation is made with the prior CT head from 10/12/2021. FINDINGS: CT HEAD: A large area of encephalomalacia in the right MCA territory appears similar to the prior exam. No sulcal effacement is seen. There is no midline shift. No acute intra-axial or extra-axial hemorrhage is detected. Periventricular white matter changes are noted, consistent with chronic microvascular ischemia. There are old lacunar infarcts in the bilateral thalami. The cisterns are patent. The visualized paranasal sinuses are clear. IMPRESSION: Stable chronic changes when compared with the prior study from 10/12/2021. No acute intracranial process is detected. CT CERVICAL SPINE: The curvature and alignment of the cervical spine are normal. There is multilevel spondylosis with variable disc space narrowing and marginal spurring. There is multilevel facet arthropathy. No fracture is seen. The odontoid is intact. The prevertebral tissues are within normal limits. IMPRESSION: Cervical spondylosis. No acute bony abnormality is detected. Dictated by: Dictated on workstation # [id number]
[2021-10-28] MEDS ORDERED: NS IV 1000 ML 1,000 ML ONE (21:47)
[2021-10-28] MEDS: APIXABAN 5 MG (ELIQUIS) TABLET PO SCH (22:57)
[2021-10-28] MEDS: CEFEPIME 1,000 MG/NS 50 ML IVPB IV SCH ×2 (22:57)
[2021-10-28] MEDS: NS IV 1000 ML 1,000 ML IV SCH (22:58)
[2021-10-29] VITALS (8 sets, daily range): BP systolic 105–142; BP diastolic 37–82
[2021-10-29] MEDS ORDERED: MELATONIN 10 MG TABLET PO PRN (00:30)
[2021-10-29] MEDS: MELATONIN 3 MG TABLET PO PRN ×2 (01:15→20:52)
[2021-10-29] MEDS: CEFEPIME 1,000 MG/NS 50 ML IVPB IV SCH ×6 (04:42→16:29)
[2021-10-29 05:10] LABS: BASOPHILS % (AUTO) 0 % (0-10); EOSINOPHILS # (AUTO) 0.1 10^3/uL (0.0-0.3); EOSINOPHILS % (AUTO) 1 % (0-10); HEMATOCRIT 27 % (35-52); HEMOGLOBIN 8.3 g/dL (11.5-16.0); LYMPHOCYTES # (AUTO) 0.7 10^3/uL (1.0-4.0); LYMPHOCYTES % (AUTO) 9 % (12-44); MEAN CORPUSCULAR HEMOGLOBIN 30 pg (25-34); MEAN CORPUSCULAR HGB CONC 31 g/dL (32-36); MEAN CORPUSCULAR VOLUME 95 fL (80-99); MEAN PLATELET VOLUME 10.3 fL (9.0-12.2); MONOCYTES # (AUTO) 0.7 10^3/uL (0.0-1.0); MONOCYTES % (AUTO) 8 % (0-12); NEUTROPHILS # (AUTO) 6.4 10^3/uL (1.8-7.8); NEUTROPHILS % (AUTO) 80 % (42-75); PLATELET COUNT 327 10^3/uL (130-400)
[2021-10-29 05:27] LABS: CHLORIDE 103 MMOL/L (98-107); SODIUM 134 MMOL/L (135-145)
[2021-10-29 05:28] LABS: CALCIUM 8.1 MG/DL (8.5-10.1)
[2021-10-29 05:29] LABS: GLUCOSE 196 MG/DL (70-105); TRIGLYCERIDES 67 MG/DL (<150); VLDL CHOLESTEROL 13 MG/DL (5-40)
[2021-10-29 05:30] LABS: CARBON DIOXIDE 23 MMOL/L (21-32)
[2021-10-29 05:33] LABS: CREATININE SERUM 0.62 MG/DL (0.60-1.30); GFR ESTIMATED 86
[2021-10-29 05:34] LABS: BUN/CREATININE RATIO 26; CHOLESTEROL 51 MG/DL (< 200)
[2021-10-29 05:35] LABS: HDL CHOLESTEROL < 15 MG/DL (40-60)
[2021-10-29] MEDS: inSUlin ASPART (NovoLOG) 1 UNIT/0.01 ML (CHARGE PER UNIT) SC SCH ×4 (06:12→20:59)
--- NOTE | 2021-10-29 07:14 | Diagnostic Imaging Report ---
INDICATION: Chest pain, UTI, sepsis EXAMINATION: Chest 10/29/2021 COMPARISON: 10/28/2021 FINDINGS: There is cardiomegaly and pulmonary vascular congestion. Findings of edema noted in both lungs. There are likely infiltrates at the bases. There is a small left effusion. IMPRESSION: 1. Pulmonary edema. 2. Bibasal infiltrates with left effusion. Dictated by: Dictated on workstation # [id number]
[2021-10-29] MEDS ORDERED: ONDANSETRON 4 MG/2 ML (SDV) Z0FRAN IVP PRN (08:00)
--- NOTE | 2021-10-29 08:21 | Consultation-Cardiology ---
HPI-Cardiology Cardiology Consultation: Date of Consultation 10/29/21 Time Seen by a Provider: 08:30 Date of Admission 10-28-21 Attending Physician David Bueno MD Admitting Physician Admitting Physician: Marzena Davies MD Attending Physician: Candy Myers DO Consulting Physician Prasad Peñaloza MD HPI: Chief Complaint: SOB Ms. Zayas is an 85 yr old female admitted to [facility] from the ED. She is not a good historian. She reports she broke her left leg 10 days ago and was having the dylan removed yesterday. She reports she resides at [facility] and fell yesterday when transferring from her recliner to her w/c. She reports she was feeling unwell yesterday at Dr. Mohr's office. No c/o CP, SOB or palpitations. No c/o syncope or near syncope. She reports she has a h/o multiple CVA's and has chronic LUE and LLE weakness along with left sided facial droop. She does not report following routinely with cardiology. She reports she has chronic a-fib and thinks she is on a blood thinner, but is unsure. Review of Systems-Cardiology Review of Systems Constitutional: No chills, No fever; malaise Eyes: No vision change Ears/Nose/Throat: No epistaxis, No recent hearing loss Respiratory: As described under HPI Cardiovascular: As described under HPI Gastrointestinal: No constipation, No diarrhea; nausea, vomiting Genitourinary: other (urinary catheter in place) Skin: other (foam brace in place to left leg); No rash on exposed areas, No ulcerations on exposed areas Psychiatric/Neurological: No anxiety, No depression, No seizure, No focal weakness, No syncope Hematologic: No bleeding abnormalities All Other Systems Reviewed Negative Unless Noted: Yes YDI-Easxgk-Jdamzu Hx Patient Social History Smoking Status: Never a Smoker Have you traveled recently?: No Alcohol Use?: No Pt feels they are or have been: No Past Medical History PMH As described under Assessment. Family Medical History Family Medical History: She does not report any family h/o CAD Allergies and Home Medications Allergies Coded Allergies: No Known Drug Allergies (Unverified , 10/12/21) Patient Home Medication List ALPRAZolam (ALPRAZolam) 0.25 Mg Tablet, 0.25 MG PO TID PRN for ANXIETY, (Reported) Entered as Reported by: NADEEN LOU on 10/29/21 1432 Last Action: Reviewed Acetaminophen (Tylenol) 325 Mg Tablet, 650 MG PO Q6H PRN for PAIN-MILD (1-4), (Reported) Entered as Reported by: NADEEN LOU on 10/14/21940 Last Action: Reviewed Apixaban (Eliquis) 5 Mg Tablet, 5 MG PO Q12H, (Reported) Entered as Reported by: NADEEN LOU on 10/14/21940 Last Action: Reviewed Aspirin (Aspirin EC) 81 Mg Tablet.dr, 81 MG PO DAILY, (Reported) Entered as Reported by: NADEEN LOU on 10/14/21940 Last Action: Reviewed Atorvastatin Calcium (Atorvastatin Calcium) 40 Mg Tablet, 40 MG PO HS, (Reported) Entered as Reported by: NADEEN LOU on 10/14/21940 Last Action: Reviewed Cholecalciferol (Vitamin D3) (Vitamin D3) 25 Mcg (1000 Unit) Tablet, 25 MCG PO DAILY, (Reported) Entered as Reported by: NADEEN LOU on 10/14/21940 Last Action: Reviewed Citalopram Hydrobromide (Citalopram HBr) 10 Mg Tablet, 10 MG PO DAILY, (Reported) Entered as Reported by: NADEEN LOU on 10/14/21940 Last Action: Reviewed Donepezil HCl (Donepezil HCl) 10 Mg Tablet, 10 MG PO HS, (Reported) Entered as Reported by: NADEEN LOU on 10/14/21940 Last Action: Reviewed Ferrous Sulfate (Ferrous Sulfate) 324 Mg (65 Mg Iron) Tablet.dr, 324 MG PO DAILY, (Reported) Entered as Reported by: NADEEN LUO on 10/14/21940 Last Action: Reviewed Furosemide (Furosemide) 40 Mg Tablet, 40 MG PO DAILY, (Reported) Entered as Reported by: NADEEN LOU on 10/14/21940 Last Action: Reviewed Glimepiride (Glimepiride) 2 Mg Tablet, 2 MG PO DAILY, (Reported) Entered as Reported by: NADEEN LOU on 10/14/21940 Last Action: Reviewed Insulin Lispro (Humalog) 100 Unit/Ml Vial, UNIT SQ ACHS, (Reported) Entered as Reported by: NADEEN LOU on 10/29/21 1432 Last Action: Reviewed Magnesium Hydroxide (Milk of Magnesia) 400 Mg/5 Ml Oral.susp, 30 ML PO HS PRN for CONSTIPATION-7TH LINE, (Reported) Entered as Reported by: NADEEN LOU on 10/14/21940 Last Action: Reviewed Magnesium Oxide (Magnesium) 400 Mg Magnesium Tablet, 400 MG PO 0800,1600, (Reported) Entered as Reported by: NADEEN LOU on 10/14/21940 Last Action: Reviewed Memantine HCl (Memantine HCl) 10 Mg Tablet, 10 MG PO Q12H, (Reported) Entered as Reported by: NADEEN LOU on 10/14/21940 Last Action: Reviewed Menthol (Biofreeze) 4 % Gel..ml., 1 APPLIC TP QID PRN for PAIN-BREAKTHROUGH, (Reported) Entered as Reported by: NADEEN LOU on 10/14/21940 Last Action: Reviewed Multivitamin with Minerals (Multiple Vitamin) 1 Each Tablet, 1 EACH PO DAILY, (Reported) Entered as Reported by: NADEEN LOU on 10/14/21940 Last Action: Reviewed Pantoprazole Sodium (Pantoprazole Sodium) 20 Mg Tablet.dr, 20 MG PO DAILY, (Reported) Entered as Reported by: NADEEN LOU on 10/14/21940 Last Action: Reviewed Polyethylene Glycol 3350 (Miralax) 17 Gram Powd.pack, 17 GM PO Q72H PRN for CONSTIPATION-2ND LINE, (Reported) Entered as Reported by: NADEEN LOU on 10/14/21940 Last Action: Reviewed Potassium Chloride (Potassium Chloride) 10 Meq Tab.er.prt, 10 MEQ PO Q12H, (Reported) Entered as Reported by: NADEEN LOU on 10/14/21940 Last Action: Reviewed Ropinirole HCl (Ropinirole HCl) 0.5 Mg Tablet, 0.5 MG PO Q8H, (Reported) Entered as Reported by: NADEEN LOU on 10/14/21940 Last Action: Reviewed Sennosides (Senna Lax) 8.6 Mg Tablet, 8.6 MG PO HS PRN for CONSTIPATION-5TH LINE, (Reported) Entered as Reported by: NADEEN LOU on 6/27/22 0941 Last Action: Reviewed Discontinued Medications Metoprolol Succinate (Metoprolol Succinate) 25 Mg Tab.er.24h, 25 MG PO DAILY Discontinued Reason: No Longer Taking Prescribed by: MARZENA DAVIES on 10/18/21 1133 Last Action: Discontinued Physical Exam-Cardiology Physical Exam Vital Signs/I&O 10/29/21 10/30/21 10/30/21 10/30/21 23:34 01:00 04:03 07:00 Temp 36.4 36.2 Pulse 71 64 70 60 Resp 18 20 B/P (MAP) 134/59 (84) 118/63 (81) Pulse Ox 96 97 O2 Delivery Room Air Room Air 10/30/21 07:31 Temp 36.1 Pulse 60 Resp 20 B/P (MAP) 118/68 (85) Pulse Ox 100 O2 Delivery Room Air 10/30/21 00:00 Intake Total 1070 ml Output Total 1750 ml Balance -680 ml Capillary Refill : Less Than 3 Seconds Constitutional: AAO x 3, well-developed, well-nourished HEENT: hearing is well preserved Neck: No carotid bruit; carotid pulses are 2 + bilaterally Respiratory: No accessory muscle use, No respiratory distress; chest expansion is symmetric, chest is bilaterally symmetric, other (diminished lower lobes bilat) Cardiovascular: irregularly irregular; No JVD; S1 and S2 Gastrointestinal: No tender; soft, round, audible bowel sounds Extremities: other (mild to mod bilat LE swelling) Neurologic/Psychiatric: grossly intact (RUE, RLE 5/5; LUE 4/5. Left sided f acial droop. Leg brace to LLE in place 4/5) Skin: other Data Review Labs Laboratory Tests 10/29/21 11:03: Glucometer 252H 10/29/21 15:58: Glucometer 307H 10/29/21 20:57: Glucometer 258H 10/30/21 05:30: White Blood Count 5.2, Red Blood Count 2.83L, Hemoglobin 8.5L, Hematocrit 27L, Mean Corpuscular Volume 96, Mean Corpuscular Hemoglobin 30, Mean Corpuscular Hemoglobin Concent 31L, Red Cell Distribution Width 14.6H, Platelet Count 356, Mean Platelet Volume 11.1, Immature Granulocyte % (Auto) 2, Neutrophils (%) (Auto) 71, Lymphocytes (%) (Auto) 17, Monocytes (%) (Auto) 7, Eosinophils (%) (Auto) 3, Basophils (%) (Auto) 0, Neutrophils # (Auto) 3.7, Lymphocytes # (Auto) 0.9L, Monocytes # (Auto) 0.4, Eosinophils # (Auto) 0.2, Basophils # (Auto) 0.0, Immature Granulocyte # (Auto) 0.1 10/30/21 05:42: Glucometer 235H 10/30/21 05:44: Sodium Level 134L, Potassium Level 3.9, Chloride Level 103, Carbon Dioxide Level 24, Anion Gap 7, Blood Urea Nitrogen 17, Creatinine 0.58L, Estimat Glomerular Filtration Rate 88, BUN/Creatinine Ratio 29, Glucose Level 256H, Calcium Level 8.1L, Magnesium Level 1.8 10/30/21 10:41: Glucometer 292H Microbiology 10/28/21 Urine Culture - Preliminary, Resulted Proteus mirabilis Gram Negative Claude 10/28/21 Blood Culture - Preliminary, Resulted Positive; See Report Gram Negative Claude Radiology NAME: DANNY ZAYAS [facility] REC#: [id number] PT STATUS: REG ER : 1935 PHYSICIAN: MITZI COATES MD ADMIT DATE: 10/28/21/ER Signed Date of Exam:10/28/21 CT HEAD/CERVICAL SPINE WO PROCEDURE: CT head and CT cervical spine without contrast. TECHNIQUE: Multiple contiguous axial images were obtained through the brain and cervical spine without the use of intravenous contrast. Sagittal and coronal reformations through the cervical spine were then performed. Auto Exposure Controls were utilized during the CT exam to meet ALARA standards for radiation dose reduction. INDICATION: Nausea and fall. COMPARISON: Correlation is made with the prior CT head from 10/12/2021. FINDINGS: CT HEAD: A large area of encephalomalacia in the right MCA territory appears similar to the prior exam. No sulcal effacement is seen. There is no midline shift. No acute intra-axial or extra-axial hemorrhage is detected. Periventricular white matter changes are noted, consistent with chronic microvascular ischemia. There are old lacunar infarcts in the bilateral thalami. The cisterns are patent. The visualized paranasal sinuses are clear. IMPRESSION: Stable chronic changes when compared with the prior study from 10/12/2021. No acute intracranial process is detected. CT CERVICAL SPINE: The curvature and alignment of the cervical spine are normal. There is multilevel spondylosis with variable disc space narrowing and marginal spurring. There is multilevel facet arthropathy. No fracture is seen. The odontoid is intact. The prevertebral tissues are within normal limits. IMPRESSION: Cervical spondylosis. No acute bony abnormality is detected. Dictated by: Dictated on workstation # [id number] Dict: 10/28/21 1405 Trans: 10/28/21 1555 [id number] Interpreted by: KEVIN OLSON MD Electronically signed by: KEVIN OLSON MD 10/28/21 1555 NAME: DANNY ZAYAS [facility] REC#: [id number] PT STATUS: REG ER : 1935 PHYSICIAN: MITZI COATES MD ADMIT DATE: 10/28/21/ER Signed Date of Exam:10/28/21 US VENOUS UPPER EXT LT PROCEDURE: US venous upper extremity left. INDICATION: LUE swelling and pain post surgery and CC TECHNIQUE: Color and grayscale sonographic images with duplex Doppler evaluation of the upper extremity venous system. CORRELATION STUDY: None FINDINGS: There is no intraluminal filling defect within the visualized portion of the internal jugular, subclavian, axillary, brachial and/or basilic veins to suggest thrombus formation. Where applicable, these vessels demonstrate normal response to compression and augmentation. There is no significant soft tissue fluid collection. IMPRESSION: 1. Negative for venous thrombus of the left upper extremity. Dictated by: Dictated on workstation # [id number] Dict: 10/28/21 1342 Trans: 10/28/21 1343 Interpreted by: OLI GREEN DO Electronically signed by: OLI GREEN DO 10/28/21 1343 NAME: DANNY ZAYAS [facility] REC#: [id number] PT STATUS: ADM IN : 1935 PHYSICIAN: MARZENA DAVIES MD ADMIT DATE: 10/28/21/[facility] Draft Date of Exam:10/29/21 CHEST 1 VIEW, AP/PA ONLY INDICATION: Chest pain, UTI, sepsis EXAMINATION: Chest 10/29/2021 COMPARISON: 10/28/2021 FINDINGS: There is cardiomegaly and pulmonary vascular congestion. Findings of edema noted in both lungs. There are likely infiltrates at the bases. There is a small left effusion. IMPRESSION: 1. Pulmonary edema. 2. Bibasal infiltrates with left effusion. Dictated on workstation # [id number] Dict: 10/29/21 0657 Trans: 10/29/21 0713 [facility] [id number] Interpreted by: SULLY BARAHONA MD Electronically signed by: ECG Impression ECG Initial ECG Impression: Atrial Fibrillation w/RVR A/P-Cardiology Assessment/Admission Diagnosis Chronic a-fib - A-fib with RVR - rate controlled at this time without rate controlling agents - Chronic OAC with Xarelto - Echocardiogram of 10-13-[address] Russell showed LVEF 40-45%. PASP 60-65 mmHg UTI with sepsis - management per medical services Minimally elevated troponin, likely Type 2 [place] - likely secondary to sepsis, transient hypotension and a-fib with RVR - no c/o CP Systolic CHF - treat with diuretics HTN H/O LLE fracture with repair on 10-13-[address] 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, LUE and left sided facial droop Liver enzyme elevation - undetermined etiology - medical services managing Anemia - undetermined etiology - medical services managing Discussion and Recomendations Chronic a-fib - rate controlled without rate controlling agents at this time (was on Cardizem gtt, which has been stopped) - Continue Xarelto for stroke prophylaxis - Echocardiogram Minimal troponin elevation - Likely Type 2 [place] secondary to sepsis, a-fib with RVR and transient hypotension UTI with sepsis - management per medical services Systolic CHF - treat with diuretics Anemia - management per medical services Liver enzyme elevation - management per medical services Monitor lab Replace electrolytes as indicated Further recs will be based on her hospital course We would like to thank medical services for this consult BRIANDA MARX Oct 29, 2021 08:21
[2021-10-29] MEDS ORDERED: FUROSEMIDE 40 MG/4 ML INJ (LASIX) IVP ONE (10:30)
[2021-10-29] MEDS: ASPIRIN 81 MG CHEW (CHILDREN'S ASA) PO SCH (10:38)
[2021-10-29] MEDS: NS IV 1000 ML 1,000 ML IV SCH ×2 (10:38→13:41)
[2021-10-29] MEDS: APIXABAN 5 MG (ELIQUIS) TABLET PO SCH ×2 (10:38→20:52)
--- NOTE | 2021-10-29 10:44 | History & Physical-Hospitalist ---
LUIS F GONZALEZ A MED STUDENT 10/29/21 1044: History of Present Illness HPI/Chief Complaint Nieves is an 85 yo female who presented from [facility] for chest pain and LUE swelling. Pt has hx of Afib on xarelto, stroke with LUE weakness, HTN and diabetes. Pt was recently hospitalized at following a fall that led to surgical fixation of LLE. This stay was complicated by Afib with RVR and pt was in ICU for 3 days with wallace catheter and central line placement. Pt reports she had chest pain and LUE swelling at an appt with Dr. Mohr to have her dylan removed in her leg and was advised to go to ED. Pt was found to have sepsis, UTI, lactic acidosis and elevated troponin and BNP. CXR, CT head and cervical spine were unremarkable. Pt was started on cefepime, eliquis and NaCl. Today the pt feels better and denies dysuria or frequency, but has wallace catheter placed. Pt does report poor appetite, but this has been ongoing. Pt reports last BM was yesterday. Pt denies fever, chills, chest pain, SOA, cough, numbness or weakness. Source: patient, family (son present for parts of exam) Exam Limitations: no limitations Date Seen 10/29/21 Time Seen by a Provider: 08:00 Attending Physician David Bueno MD PCP Admitting Physician: Isaura Skinner MD Attending Physician: Candy Bonds DO Referring Physician Date of Admission Oct 28, 2021 at 19:09 Home Medications & Allergies Home Medications Reviewed patient Home Medication Reconciliation performed by pharmacy medication reconciliations restoration technician and/or nursing. Patients Allergies have been reviewed. Allergies Allergies Coded Allergies No Known Drug Allergies (Unverified10/12/21) Past Yqppryo-Apwjqw-Xxcijj Hx Patient Social History Tobacco Use?: No Smoking Status: Never a Smoker Use of E-Cig and/or Vaping dev: No Substance use?: No Alcohol Use?: No Pt feels they are or have been: No Immunizations Up To Date Tetanus Booster (TDap): Unknown Current Status status: No status: No Advance Directives: No Communicates: Verbally Primary Language: Cameroonian Preferred Spoken Language: Cameroonian Is interpretation needed?: No Sensory deficits: Vision impairment Implanted or Applied Medical D: None Past Medical History Currently Using CPAP: No Currently Using BIPAP: No High Cholesterol, Hypertension Diabetes, Insulin dep Family Medical History Other Conditions/Hx Review of Systems Constitutional: No chills, No fever EENTM: No blurred vision, No double vision Respiratory: No cough, No short of breath Cardiovascular: No chest pain, No palpitations Gastrointestinal: No abdominal pain, No constipation Genitourinary: No dysuria, No frequency Musculoskeletal: other (left leg pain) Skin: No change in color, No lesions Psychiatric/Neurological: Denies Anxiety, Denies Depressed Physical Exam Physical Exam Vital Signs Vital Signs - First Documented 10/28/21 10/28/21 11:28 20:25 Temp 36.5 Pulse 115 Resp 24 B/P (MAP) 107/60 (76) Pulse Ox 95 O2 Delivery Room Air Capillary Refill : Less Than 3 Seconds Height, Weight, BMI Height: '" Weight: lbs. oz. kg; 35.54 BMI Method: General Appearance: No Apparent Distress, Obese HEENT: PERRL/EOMI, Pharynx Normal Neck: Full Range of Motion, Normal Inspection Respiratory: Chest Non Tender, Lungs Clear Cardiovascular: No Murmur, Irregularly Irregular Gastrointestinal: Normal Bowel Sounds, Non Tender Extremity: Non Tender, Other (LLE in brace) Neurologic/Psychiatric: Alert, Oriented x3 Skin: Warm/Dry, Pallor Results Results/Procedures Labs Laboratory Tests 10/28/21 11:40 10/29/21 05:00 Patient resulted labs reviewed. Assessment/Plan Admission Diagnosis Sepsis d/t UTI Assessment and Plan Sepsis d/t UTI Afib on anticoagulation Anemia HTN Diabetes Recent hospitalization for surgical fixation of LLE Sepsis d/t UTI -Cefepime -NaCl at 150 mls/hr for hypotension -Lactic acid trending down Elevated troponin and BNP -Cardiology consulted, appreciate their recs Afib on anticoagulation -Eliquis 5mg BID Anemia -Hgb 8.3 from 10.3 -Will monitor CBC closely HTN -Currently hypotensive Diabetes -SSI Recent hospitalization for surgical fixation of LLE -PT/OT -Will likely need placement in skilled facility upon d/c CANDY BONDS DO 10/30/21 0548: History of Present Illness HPI/Chief Complaint CC: Chest pain with UTI and sepsis HPI: This is an 85 yr old female who had presented from [facility] status post fracture of her left femur. Repair by Dr. Mohr. Placed at [facility]. She suffered a fall. She was diagnosed with UTI and sepsis with elevated liver enzymes. Hemoglobin is 8.3. Son is concerned about the care at the residential and wants her to stay in the hospital for a couple months. Cefepime initiated for facility acquired UTI. Pt maintained on Eliquis. Cardiology was consulted for elevated troponin. Source: patient, family (son present for parts of exam) Exam Limitations: no limitations Past Yefqdhm-Dpffkf-Wzxbrh Hx Patient Social History Marrital Status: Employed/Student: retired Smoking Status: Never a Smoker Past Medical History Surgeries: Orthopedic Atrial Fibrillation, Chronic Edema/Swelling, Coronary Artery Disease, Heart Murmur, High Cholesterol Review of Systems Constitutional: see HPI, malaise, weakness Musculoskeletal: joint pain Physical Exam Physical Exam General Appearance: No Apparent Distress, Chronically ill, Obese Respiratory: Lungs Clear, Normal Breath Sounds Cardiovascular: Irregularly Irregular, Tachycardia Neurologic/Psychiatric: Alert, Disoriented Assessment/Plan Admission Diagnosis Assessment: Sepsis UTO AF HTN HLP Recent hip fracture Advanced age Plan: Pain control Cardiology appreciated Admission Status: Inpatient Order (span 2 midnights) Reason for Inpatient Admission: af uti Diagnosis/Problems Diagnosis/Problems (1) Atrial fibrillation with rapid ventricular response Status: Acute (2) Fall Status: Acute (3) Chest pain Status: Acute Qualifiers: Chest pain type: unspecified Qualified Codes: R07.9 - Chest pain, unspecified (4) UTI (urinary tract infection) Status: Acute Qualifiers: Urinary tract infection type: acute cystitis Hematuria presence: with hematuria Qualified Codes: N30.01 - Acute cystitis with hematuria (5) Sepsis Status: Acute Qualifiers: Sepsis type: sepsis due to unspecified organism Sepsis acute organ dysfunction status: without acute organ dysfunction Qualified Codes: A41.9 - Sepsis, unspecified organism (6) Cardiomyopathy Supervisory-Addendum Brief Verification & Attestation Participated in pt care: history, MDM, physical Personally performed: exam, history, MDM, supervision of care Care discussed with: Medical Student Procedures: n/a Results interpretation: Verified all documentation Verification and Attestation of Medical Student E/M Service A medical student performed and documented this service in my presence. I reviewed and verified all information documented by the medical student and made modifications to such information, when appropriate. I personally performed the physical exam and medical decision making. Candy Bonds, Oct 30, 2021,05:48 LUIS F GONZALEZ MED STUDENT Oct 29, 2021 10:44 CANDY BONDS DO Oct 30, 2021 05:48
[2021-10-29] MEDS ORDERED: ALPR0.254 PO (14:32)
[2021-10-29] MEDS ORDERED: INSU100V SQ (14:32)
[2021-10-29] MEDS: FLUCONAZOLE 200 MG/NACL 100 ML (PRE-MIX) IV SCH (16:28)
--- NOTE | 2021-10-29 18:40 | Consultation-Cardiology ---
HPI-Cardiology Cardiology Consultation: Date of Consultation 10/29/21 Time Seen by a Provider: 17:45 Date of Admission Attending Physician David Bueno MD Admitting Physician Admitting Physician: Marzena Davies MD Attending Physician: Candy Myers DO Consulting Physician RYAN WHITMAN MD, MA, FACP, FACC, [facility] [place], CCDS HPI: Chief Complaint: SOB Ms. Cavazos is an 85 yr old female admitted to [facility] from the ED. She is not a good historian. She reports she broke her left leg 10 days ago and was having the dylan removed yesterday. She reports she resides at [facility] and fell yesterday when transferring from her recliner to her w/c. She reports she was feeling unwell yesterday at Dr. Mohr's office. No c/o CP, SOB or palpitations. No c/o syncope or near syncope. She reports she has a h/o multiple CVA's and has chronic LUE and LLE weakness along with left sided facial droop. She does not report following routinely with cardiology. She reports she has chronic a-fib and thinks she is on a blood thinner, but is unsure. Review of Systems-Cardiology Review of Systems Constitutional: No chills, No fever; malaise Eyes: No vision change Ears/Nose/Throat: No epistaxis, No recent hearing loss Respiratory: As described under HPI Cardiovascular: As described under HPI Gastrointestinal: No constipation, No diarrhea; nausea, vomiting Genitourinary: other (urinary catheter in place) Skin: other (foam brace in place to left leg); No rash on exposed areas, No ulcerations on exposed areas Psychiatric/Neurological: No anxiety, No depression, No seizure, No focal weakness, No syncope Hematologic: No bleeding abnormalities All Other Systems Reviewed Negative Unless Noted: Yes RPN-Wwdfmp-Fftdhl Hx Patient Social History Smoking Status: Never a Smoker Have you traveled recently?: No Alcohol Use?: No Pt feels they are or have been: No Past Medical History PMH As described under Assessment. Family Medical History Family Medical History: She does not report any family h/o CAD Allergies and Home Medications Allergies Coded Allergies: No Known Drug Allergies (Unverified , 10/12/21) Patient Home Medication List Home Medication List Reviewed: Yes ALPRAZolam (ALPRAZolam) 0.25 Mg Tablet, 0.25 MG PO TID PRN for ANXIETY, (Reported) Entered as Reported by: NADEEN LOU on 10/29/21 143 Last Action: Reviewed Acetaminophen (Tylenol) 325 Mg Tablet, 650 MG PO Q6H PRN for PAIN-MILD (1-4), (Reported) Entered as Reported by: NADEEN LOU on 10/14/21940 Last Action: Reviewed Apixaban (Eliquis) 5 Mg Tablet, 5 MG PO Q12H, (Reported) Entered as Reported by: NADEEN LOU on 10/14/21940 Last Action: Reviewed Aspirin (Aspirin EC) 81 Mg Tablet., 81 MG PO DAILY, (Reported) Entered as Reported by: NADEEN LOU on 10/14/21940 Last Action: Reviewed Atorvastatin Calcium (Atorvastatin Calcium) 40 Mg Tablet, 40 MG PO HS, (Reported) Entered as Reported by: NADEEN LOU on 10/14/21940 Last Action: Reviewed Cholecalciferol (Vitamin D3) (Vitamin D3) 25 Mcg (1000 Unit) Tablet, 25 MCG PO DAILY, (Reported) Entered as Reported by: NADEEN LOU on 10/14/21940 Last Action: Reviewed Citalopram Hydrobromide (Citalopram HBr) 10 Mg Tablet, 10 MG PO DAILY, (Reported) Entered as Reported by: NADEEN LOU on 10/14/21940 Last Action: Reviewed Donepezil HCl (Donepezil HCl) 10 Mg Tablet, 10 MG PO HS, (Reported) Entered as Reported by: NADEEN LOU on 10/14/21940 Last Action: Reviewed Ferrous Sulfate (Ferrous Sulfate) 324 Mg (65 Mg Iron) Tablet., 324 MG PO DAILY, (Reported) Entered as Reported by: NADEEN LOU on 10/14/21940 Last Action: Reviewed Furosemide (Furosemide) 40 Mg Tablet, 40 MG PO DAILY, (Reported) Entered as Reported by: NADEEN LOU on 10/14/21940 Last Action: Reviewed Glimepiride (Glimepiride) 2 Mg Tablet, 2 MG PO DAILY, (Reported) Entered as Reported by: NADEEN LOU on 10/14/21940 Last Action: Reviewed Insulin Lispro (Humalog) 100 Unit/Ml Vial, UNIT SQ ACHS, (Reported) Entered as Reported by: NADEEN LOU on 10/29/21 1432 Last Action: Reviewed Magnesium Hydroxide (Milk of Magnesia) 400 Mg/5 Ml Oral.susp, 30 ML PO HS PRN for CONSTIPATION-7TH LINE, (Reported) Entered as Reported by: NADEEN LOU on 10/14/21940 Last Action: Reviewed Magnesium Oxide (Magnesium) 400 Mg Magnesium Tablet, 400 MG PO 0800,1600, (Repo rted) Entered as Reported by: NADEEN LOU on 10/14/21940 Last Action: Reviewed Memantine HCl (Memantine HCl) 10 Mg Tablet, 10 MG PO Q12H, (Reported) Entered as Reported by: NADEEN LOU on 10/14/21940 Last Action: Reviewed Menthol (Biofreeze) 4 % Gel..ml., 1 APPLIC TP QID PRN for PAIN-BREAKTHROUGH, (Re ported) Entered as Reported by: NADEEN LOU on 10/14/21940 Last Action: Reviewed Multivitamin with Minerals (Multiple Vitamin) 1 Each Tablet, 1 EACH PO DAILY, (Reported) Entered as Reported by: NADEEN LOU on 10/14/21940 Last Action: Reviewed Pantoprazole Sodium (Pantoprazole Sodium) 20 Mg Tablet.dr, 20 MG PO DAILY, (Reported) Entered as Reported by: NADEEN LOU on 10/14/21940 Last Action: Reviewed Polyethylene Glycol 3350 (Miralax) 17 Gram Powd.pack, 17 GM PO Q72H PRN for CONSTIPATION-2ND LINE, (Reported) Entered as Reported by: NADEEN LOU on 10/14/21940 Last Action: Reviewed Potassium Chloride (Potassium Chloride) 10 Meq Tab.er.prt, 10 MEQ PO Q12H, (Reported) Entered as Reported by: NADEEN LOU on 10/14/21940 Last Action: Reviewed Ropinirole HCl (Ropinirole HCl) 0.5 Mg Tablet, 0.5 MG PO Q8H, (Reported) Entered as Reported by: NADEEN LOU on 10/14/21940 Last Action: Reviewed Sennosides (Senna Lax) 8.6 Mg Tablet, 8.6 MG PO HS PRN for CONSTIPATION-5TH LINE, (Reported) Entered as Reported by: NADEEN LOU on 10/14/21 0961 Last Action: Reviewed Discontinued Medications Metoprolol Succinate (Metoprolol Succinate) 25 Mg Tab.er.24h, 25 MG PO DAILY Discontinued Reason: No Longer Taking Prescribed by: MARZENA DAVIES on 10/18/21 1133 Last Action: Discontinued Physical Exam-Cardiology Physical Exam Vital Signs/I&O 10/29/21 10/29/21 10/29/21 10/29/21 07:00 08:52 11:08 13:00 Temp 36.5 36.5 Pulse 87 78 82 76 Resp 20 20 B/P (MAP) 120/55 (76) 142/73 (96) Pulse Ox 96 98 O2 Delivery Room Air Room Air 10/29/21 15:49 Temp 36.5 Pulse 66 Resp 20 B/P (MAP) 108/53 (71) Pulse Ox 97 O2 Delivery Room Air 10/29/21 00:00 Intake Total 1550 ml Balance 1550 ml Capillary Refill : Less Than 3 Seconds Constitutional: AAO x 3, well-developed, well-nourished HEENT: hearing is well preserved Neck: No carotid bruit; carotid pulses are 2 + bilaterally Respiratory: No accessory muscle use, No respiratory distress; chest expansion is symmetric, chest is bilaterally symmetric, other (diminished lower lobes bilat) Cardiovascular: irregularly irregular; No JVD; S1 and S2 Gastrointestinal: No tender; soft, round, audible bowel sounds Extremities: other (mild to mod bilat LE swelling) Neurologic/Psychiatric: grossly intact (RUE, RLE 5/5; LUE 4/5. Left sided facial droop. Leg brace to LLE in place 4/5) Skin: other Data Review Labs Laboratory Tests 10/28/21 20:42: Glucometer 205H 10/29/21 05:00: White Blood Count 8.0, Red Blood Count 2.80L, Hemoglobin 8.3L, Hematocrit 27L, Mean Corpuscular Volume 95, Mean Corpuscular Hemoglobin 30, Mean Corpuscular Hemoglobin Concent 31L, Red Cell Distribution Width 14.6H, Platelet Count 327, Mean Platelet Volume 10.3, Immature Granulocyte % (Auto) 1, Neutrophils (%) (Auto) 80H, Lymphocytes (%) (Auto) 9L, Monocytes (%) (Auto) 8, Eosinophils (%) (Auto) 1, Basophils (%) (Auto) 0, Neutrophils # (Auto) 6.4, Lymphocytes # (Auto) 0.7L, Monocytes # (Auto) 0.7, Eosinophils # (Auto) 0.1, Basophils # (Auto) 0.0, Immature Granulocyte # (Auto) 0.1, Sodium Level 134L, Potassium Level 4.0, Chloride Level 103, Carbon Dioxide Level 23, Anion Gap 8, Blood Urea Nitrogen 16, Creatinine 0.62, Estimat Glomerular Filtration Rate 86, BUN/Creatinine Ratio 26, Glucose Level 196H, Calcium Level 8.1L, Troponin I 0.186H, Triglycerides Level 67, Cholesterol Level 51, LDL Cholesterol Direct 21, VLDL Cholesterol 13, HDL Cholesterol < 15L 10/29/21 11:03: Glucometer 252H 10/29/21 15:58: Glucometer 307H Microbiology 10/28/21 Urine Culture - Preliminary, Resulted Proteus mirabilis Gram Negative Claude 10/28/21 Blood Culture - Preliminary, Resulted No growth A/P-Cardiology Assessment/Admission Diagnosis Chronic a-fib - A-fib with RVR - rate controlled at this time without rate controlling agents, intermittent asymptomatic bradycardia - Chronic OAC with Xarelto Dilated cardiomyopathy and acute on chronic HFrEF - Echocardiogram of 10-13-[address] Russell showed LVEF 40-45%. PASP 60-65 mmHg - Echo on 10/29/21: LVEF 30-35%, PASP 60-65 mmHg Pulmonary hypertension - probably at least partly due to L heart failure UTI with sepsis - management per medical services Minimally elevated troponin, likely Type 2 GA - likely secondary to sepsis, transient hypotension and a-fib with RVR and/or ac on chronic systolic CHF Systolic CHF - treat with diuretics H/o HTN - currently relatively hypotensive H/O LLE fracture with repair on 10-13-[address] 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, LUE and left sided facial droop Liver enzyme elevation - undetermined etiology; suspect passive hepatic congestion - medical services managing Anemia - undetermined etiology - medical services managing Discussion and Recomendations * Continue Xarelto for stroke prophylaxis * Treat with heart failure meds: not suitable for beta-darwin (bradycardia at baseline); probably won't tolerate Entresto because of relatively low bp at baseline; try low dose MARTINE-inhib; add spironolactone to furosemide * UTI with sepsis - management per medical services * Anemia - management per medical services * Monitor lab and replace electrolytes as indicated * Further recs will be based on her hospital course * We would like to thank medical services for this consult RYAN WHITMAN MD FACP [facility] CCDS Oct 29, 2021 18:40
[2021-10-30] MEDS: NS IV 1000 ML 1,000 ML IV SCH ×2 (02:44→20:35)
[2021-10-30] MEDS: CEFEPIME 1,000 MG/NS 50 ML IVPB IV SCH ×6 (02:49→17:38)
[2021-10-30 04:03] VITALS: BP 118/63
[2021-10-30 06:02] LABS: POTASSIUM 3.9 MMOL/L (3.6-5.0)
[2021-10-30] MEDS: inSUlin ASPART (NovoLOG) 1 UNIT/0.01 ML (CHARGE PER UNIT) SC SCH ×4 (06:02→20:36)
[2021-10-30] MEDS: KCL 10 MEQ TAB (MICRO K) PO SCH (06:02)
[2021-10-30 06:04] LABS: CALCIUM 8.1 MG/DL (8.5-10.1)
[2021-10-30 06:08] LABS: CREATININE SERUM 0.58 MG/DL (0.60-1.30)
[2021-10-30 06:11] LABS: MAGNESIUM 1.8 MG/DL (1.6-2.4)
[2021-10-30 07:31] VITALS: BP 118/68
[2021-10-30 09:40] LABS: BASOPHILS % (AUTO) 0 % (0-10); EOSINOPHILS # (AUTO) 0.2 10^3/uL (0.0-0.3); EOSINOPHILS % (AUTO) 3 % (0-10); HEMATOCRIT 27 % (35-52); HEMOGLOBIN 8.5 g/dL (11.5-16.0); LYMPHOCYTES # (AUTO) 0.9 10^3/uL (1.0-4.0); LYMPHOCYTES % (AUTO) 17 % (12-44); MEAN CORPUSCULAR HEMOGLOBIN 30 pg (25-34); MEAN CORPUSCULAR HGB CONC 31 g/dL (32-36); MEAN CORPUSCULAR VOLUME 96 fL (80-99); MEAN PLATELET VOLUME 11.1 fL (9.0-12.2); MONOCYTES # (AUTO) 0.4 10^3/uL (0.0-1.0); MONOCYTES % (AUTO) 7 % (0-12); NEUTROPHILS # (AUTO) 3.7 10^3/uL (1.8-7.8); NEUTROPHILS % (AUTO) 71 % (42-75); PLATELET COUNT 356 10^3/uL (130-400); WHITE BLOOD COUNT 5.2 10^3/uL (4.3-11.0)
[2021-10-30] MEDS: FUROSEMIDE 40 MG/4 ML INJ (LASIX) IVP SCH (09:49)
[2021-10-30] MEDS: ASPIRIN 81 MG CHEW (CHILDREN'S ASA) PO SCH (09:50)
[2021-10-30] MEDS: APIXABAN 5 MG (ELIQUIS) TABLET PO SCH ×2 (09:50→20:35)
[2021-10-30] MEDS: SPIRONOLACTONE 25 MG (ALDACTONE) TAB PO SCH (09:50)
[2021-10-30] MEDS: lisINopril 5 MG (PRINIVIL) TABLET PO SCH (09:50)
--- NOTE | 2021-10-30 10:32 | Progress Note - Hospitalist ---
LUIS F GONZALEZ MED STUDENT 10/30/21 1032: Subjective HPI/CC On Admission Date Seen by Provider: Oct 30, 2021 Time Seen by Provider: 08:15 CC: Chest pain with UTI and sepsis HPI: This is an 85 yr old female who had presented from [facility] status post fracture of her left femur. Repair by Dr. Mohr. Placed at [facility]. She suffered a fall. She was diagnosed with UTI and sepsis with elevated liver enzymes. Hemoglobin is 8.3. Son is concerned about the care at the senior living and wants her to stay in the hospital for a couple months. Cefepime initiated for facility acquired UTI. Pt maintained on Eliquis. Cardiology was consulted for elevated troponin. Subjective/Events-last exam Pt lying in bed comfortably this morning. Pt reports she is feeling better today compared to yesterday. The pain in her left leg is minimal. Pt denies fever, chills, CP, SOA, cough or abdominal pain. Review of Systems General: No Chills, No Fatigue HEENT: No Head Aches, No Visual Changes Pulmonary: No Dyspnea, No Cough Cardiovascular: No: Chest Pain, Palpitations Gastrointestinal: No: Nausea, Vomiting Genitourinary: No Dysuria, No Frequency Musculoskeletal: other (mild left leg pain); No: neck pain, shoulder pain Neurological: No: Weakness, Numbness Focused Exam Lactate Level 10/28/21 13:45: Lactic Acid Level 2.49*H 10/28/21 16:35: Lactic Acid Level 1.75 Time of Focused Exam: 15:10 Objective Exam Vital Signs Vital Signs Date Time Temp Pulse Resp B/P (MAP) Pulse Ox O2 Delivery O2 Flow Rate FiO2 10/30/21 07:31 36.1 60 20 118/68 (85) 100 Room Air Capillary Refill : Less Than 3 Seconds General Appearance: No Apparent Distress, Obese HEENT: PERRL/EOMI, Pharynx Normal Neck: Full Range of Motion, Normal Inspection Respiratory: Chest Non Tender, Lungs Clear, Normal Breath Sounds Cardiovascular: No Murmur, Irregularly Irregular Gastrointestinal: Normal Bowel Sounds, Non Tender Back: Normal Inspection, No CVA Tenderness Extremity: Normal Capillary Refill, Normal Inspection, Pedal Edema (1+ pitting edema in RLE) Neurologic/Psychiatric: Alert, Oriented x3 Skin: Normal Color, Warm/Dry Lymphatic: No Adenopathy Results/Procedures Lab Laboratory Tests 10/30/21 05:30 10/30/21 05:44 Patient resulted labs reviewed. Assessment/Plan Assessment and Plan Assess & Plan/Chief Complaint Sepsis d/t UTI and fungemia Afib on anticoagulation Anemia HTN Diabetes Recent hospitalization for surgical fixation of LLE Sepsis d/t UTI and fungemia -Cefepime and fluconazole -Urine culture grew proteus mirabilis and gram neg rods -Blood culture grew fungus Afib on anticoagulation -Eliquis 5mg BID Anemia -Hgb stable HTN -Currently normotensive -Spironolactone and lasix started Diabetes -SSI Recent hospitalization for surgical fixation of LLE -PT/OT -Will likely need placement in skilled facility upon d/c CANDY BONDS DO 10/31/21 0548: Subjective Subjective/Events-last exam Pt is about the same PT and OT will be ordered Diflucan will be initiated for fungemia Rocephin for UTI Urine culture pending Pt appears to be very end stage Review of Systems General: Fatigue, Malaise Musculoskeletal: leg pain Objective Exam General Appearance: Chronically ill, Obese Respiratory: Lungs Clear, Normal Breath Sounds Cardiovascular: Irregularly Irregular Extremity: Pedal Edema (1+ pitting edema in RLE) Neurologic/Psychiatric: Alert, Oriented x3, Depressed Affect Assessment/Plan Assessment and Plan Assess & Plan/Chief Complaint Diflucan Rocephin Supervisory-Addendum Brief Verification & Attestation Participated in pt care: history, MDM, physical Personally performed: exam, history, MDM, supervision of care Care discussed with: Medical Student Procedures: n/a Results interpretation: Verified all documentation Verification and Attestation of Medical Student E/M Service A medical student performed and documented this service in my presence. I reviewed and verified all information documented by the medical student and made modifications to such information, when appropriate. I personally performed the physical exam and medical decision making. Candy Bonds, Oct 31, 2021,05:46 LUIS F GONZALEZ MED STUDENT Oct 30, 2021 10:32 CANDY BONDS DO Oct 31, 2021 05:48
--- NOTE | 2021-10-30 10:55 | Progress Note - Cardiology ---
Cardiology SOAP Progress Note Subjective: In bed Drowsy, opens eyes to conversation Oriented to self and place only Objective: I&O/Vital Signs 10/30/21 10/31/21 10/31/21 10/31/21 23:43 01:00 03:25 07:00 Temp 36.5 36.2 Pulse 71 62 65 67 Resp 18 18 B/P (MAP) 127/69 (88) 123/62 (82) Pulse Ox 99 99 O2 Delivery Room Air Room Air 10/31/21 10/31/21 10/31/21 07:47 08:00 11:05 Temp 36.3 36.7 Pulse 70 73 Resp 16 16 B/P (MAP) 108/59 (75) 121/70 (87) Pulse Ox 99 95 O2 Delivery Room Air Room Air Room Air 10/31/21 00:00 Intake Total 1350 ml Output Total 3075 ml Balance -1725 ml Constitutional: well-developed, well-nourished, other (oriented to self and place only) Respiratory: chest expansion is symmetric, chest is bilaterally symmetric, other Cardiovascular: irregularly irregular, S1 and S2 Gastrointestional: soft, round, audible bowel sounds Extremities: no lower extremity edema bilateral Neurologic/Psychiatric: grossly intact Skin: other Results/Procedures: Labs Laboratory Tests 10/30/21 15:59: Glucometer 392H 10/30/21 20:21: Glucometer 302H 10/31/21 05:31: Glucometer 250H 10/31/21 05:32: White Blood Count 6.5, Red Blood Count 2.95L, Hemoglobin 8.8L, Hematocrit 29L, Mean Corpuscular Volume 97, Mean Corpuscular Hemoglobin 30, Mean Corpuscular Hemoglobin Concent 31L, Red Cell Distribution Width 14.6H, Platelet Count 356, Mean Platelet Volume 11.3, Immature Granulocyte % (Auto) 4, Neutrophils (%) (Auto) 71, Lymphocytes (%) (Auto) 16, Monocytes (%) (Auto) 6, Eosinophils (%) (Auto) 2, Basophils (%) (Auto) 1, Neutrophils # (Auto) 4.6, Lymphocytes # (Auto) 1.1, Monocytes # (Auto) 0.4, Eosinophils # (Auto) 0.2, Basophils # (Auto) 0.0, Immature Granulocyte # (Auto) 0.3H, Sodium Level 133L, Potassium Level 3.7, Chloride Level 99, Carbon Dioxide Level 26, Anion Gap 8, Blood Urea Nitrogen 16, Creatinine 0.55L, Estimat Glomerular Filtration Rate 89, BUN/Creatinine Ratio 29, Glucose Level 268H, Calcium Level 8.2L, Corrected Calcium 9.4, Total Bilirubin 2.1H, Aspartate Amino Transf (AST/SGOT) 77H, Alanine Aminotransferase (ALT/SGPT) 111H, Alkaline Phosphatase 481H, Total Protein 5.0L, Albumin 2.5L 10/31/21 11:04: Glucometer 336H Microbiology 10/28/21 Urine Culture - Preliminary, Resulted Proteus mirabilis Gram Negative Claude 10/28/21 Blood Culture - Preliminary, Resulted Positive; See Report Escherichia coli Testing In Progress A/P: Assessment: Chronic a-fib - A-fib with RVR - rate controlled at this time without rate controlling agents, intermittent asymptomatic bradycardia - Chronic OAC with Xarelto Dilated cardiomyopathy and acute on chronic HFrEF - Echocardiogram of 10-13-[address] Russell showed LVEF 40-45%. PASP 60-65 mmHg - Echo on 10/29/21: LVEF 30-35%, PASP 60-65 mmHg Pulmonary hypertension - probably at least partly due to L heart failure UTI with sepsis - management per medical services Minimally elevated troponin, likely Type 2 SD - likely secondary to sepsis, transient hypotension and a-fib with RVR and/or ac on chronic systolic CHF Systolic CHF - treat with diuretics H/o HTN - currently relatively hypotensive H/O LLE fracture with repair on 10-13-[address] 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, LUE and left sided facial droop Liver enzyme elevation - undetermined etiology; suspect passive hepatic congestion - medical services managing Anemia - undetermined etiology - medical services managing Plan: * Continue Xarelto for stroke prophylaxis * Treat with heart failure meds: not suitable for beta-darwin (bradycardia at baseline); probably won't tolerate Entresto because of relatively low bp at baseline; tolerating current low dose MARTINE-inhib and spironolactone to furosemide * UTI with sepsis - management per medical services * Anemia - management per medical services * Monitor lab and replace electrolytes as indicated BRIANDA MARX [facility] Oct 30, 2021 10:55
[2021-10-30 11:29] VITALS: BP 116/69
--- NOTE | 2021-10-30 11:58 | Occupational Therapy Eval ---
OT Evaluation-General/PLF Medical Diagnosis Admission Date Oct 28, 2021 at 19:09 Medical Diagnosis: CP, UTI, Sepsis Onset Date: Oct 28, 2021 Therapy Diagnosis Therapy Diagnosis: reduced adl status Precautions Precautions/Isolations: Fall Prevention, Standard Precautions Weight Bear Status Weight Bearing Restriction: Non Weight Bearing Location Restriction: L LE Transfers only. STRICT non-weight bearing. Immobilizer at all times. Referral Referral Reason: Evaluation/Treatment Medical History Pertinent Medical History: CVA, DM, Dementia, HTN Current History EMS from [place] secondary to c/o chest pain. Pt with recent hospitalization, s/p L Femur ORIF. Pt is a poor historian, no family present to verify accuracy of responses. Per patient, she receives assistance with adls. Unsure at this time how much assistance is provided. Pt states she used both a walker and a w/c but currently has only been using a w/c; unsure how much walking/distance pt can perform at b [facility]. Per chart, pt has residual LUE weakness and facial drop from old stroke ~15 years ago. Reviewed History: Yes Social History Home: Long Term Entry Into Home: Level Entry ADL-Prior Level of Function SCALE: Activities may be completed with or without assistive devices. 7-Csuipgwwbb-qhbalts completes the activity by him/herself with no assistance from a helper. 5-Set-up or Clean-up Assistance-helper sets up or cleans up; patient completes activity. Pitcher assists only prior to or following the activity. 4-Supervision or Touching Assistance-helper provides verbal cues and/or touching/steadying and/or contact guard assistance as patient completes activity. Assistance may be provided throughout the activity or intermittently. 3-Partial/Moderate Assistance-helper does LESS THAN HALF the effort. Pitcher lifts, holds or supports trunk or limbs, but provides less than half the effort. 2-Substantial/Maximal Assistance-helper does MORE THAN HALF the effort. Pitcher lifts or holds trunk or limbs and provides more than half the effort. 4-Fdnjmxubs-zlauxk does ALL the effort. Patient does none of the effort to complete the activity. Or, the assistance of 2 or more helpers is required for the patient to complete the activity. If activity was not attempted, code reason: 7-Patient Refused. 9-Not Applicable-not attempted and the patient did not perform the activity before the current illness, exacerbation or injury. 10-Not Attempted due to Environmental Limitations-(lack of equipment, weather restraints, etc.). 88-Not Attempted due to Medical Conditions or Safety Concerns. Self Care: Unknown Functional Cognition: Unknown Drive Self: No OT Current Status Subjective Pt denies pain, agreeable to sit EOB. Appearance Pt returned to reclined in bed, all needs within reach, RN notified. Mental Status/Objective Patient Orientation: Person, Place Attachments: Su Catheter, IV, Telemetry Current Glasses/Contacts: Yes Hearing Aids: No Dentures/Partials: Yes Hand Dominance: Right Upper Extremity ROM Bilateral shoulder: ~150 degrees AROM, ~165 degrees AAROM. Bilateral Elbow: WNL L hand: Impaired finger opposition R hand: WFL ADL-Treatment Lower Body Dressing (QC): 1 (per clinical judgment) On/Off Footwear (QC): 1 Toileting Hygiene (QC): 1 Supine>sit: Max a. Initial min a to maintain balance but improves to SBA post cues. Pt does requires 1-2 UE support to maintain balance. Attempt to stand x2. Dependent to come to partial standing. Severe kyphotic posture. Pt has strict NWB restrictions on left LE; immobilizer in place. Dependent x2 to return to supine. Pt incontinent of bowels. Max a to roll R/L, dependent for stewart care. Patient will require Duy Lift for safe transfers or OOB activity Education OT Patient Education: Correct positioning, Purpose of tx/functional activities, Reviewed precautions, Safety issues, Transfer techniques Teaching Recipient: Patient Teaching Methods: Discussion Response to Teaching: Verbalize Understanding, Return Demonstration, Reinforcement Needed OT Loading Machine Adjuster Goals Loading Machine Adjuster Goals Time Frame: Nov 16, 2021 Eating (QC): 5 Oral Hygiene (QC): 4 Shower/Bathe Self (QC): 3 Lower Body Dressing (QC): 2 On/Off Footwear (QC): 2 1=Demonstrate adherence to instructed precautions during ADL tasks. 2=Patient will verbalize/demonstrate understanding of assistive devices/modif ications for ADL. 3=Patient will improve strength/tolerance for activity to enable patient to perform ADL's. OT Education/Plan Problem List/Assessment Assessment: Decreased Activ Tolerance, Decreased Safety Aware, Decreased UE Strength, Dependent Transfers, Impaired Bed Mobility, Impaired Cognition, Impaired Coordination, Impaired Funct Balance, Impaired Self-Care Skills, Restricted Funct UE ROM Discharge Recommendations Plan/Recommendations: Continue POC Therapy Discharge Recommendati: Post Acute OT Treatment Plan/Plan of Care Treatment,Training & Education: Yes Patient would benefit from OT for education, treatment and training to promote independence in ADL's, mobility, safety and/or upper extremity function for ADL's. Plan of Care: ADL Retraining, Caregiver Training, Cognitive Retraining, Functional Mobility, Group Exercise/Act as Ind, Orthotic Fitting/Training, UE Funct Exercise/Act, UE Neuromus Re-Ed/Coord, W/C Management Training Treatment Duration: Nov 16, 2021 Frequency: 3 times per week (3-5x/week) Estimated Hrs Per Day: .25 hour per day Agreement: Yes Rehab Potential: Poor Time/GCodes Start Time: 10:55 Stop Time: 11:18 Total Time Billed (hr/min): 23 Billed Treatment Time 1 visit EVH (10 min) ADL (13 min) Arminda Hernandez OT Oct 30, 2021 11:58
--- NOTE | 2021-10-30 13:20 | Physical Therapy Evaluation ---
PT Evaluation-General Medical Diagnosis Admission Date Oct 28, 2021 at 19:09 Medical Diagnosis: CP, UTI, Sepsis Onset Date: Oct 28, 2021 Therapy Diagnosis Therapy Diagnosis: Weakness; immobility Precautions Precautions/Isolations: Fall Prevention, Standard Precautions Weight Bear Status Left Lower Extremity: Left Non Weight Bearing knee immobilizer on the (L) LE; non wt bearing Referral Physician: Candy Myers Reason for Referral: Evaluation/Treatment Medical History Pertinent Medical History: CVA, DM, Dementia, HTN Additional Medical History left proximal femur fx Current History Pt was having progressive weakness. Admitted with diagnosis of UTI and sepsis. Reviewed History: Yes Social History Home: Custodial Entry Into Home: Level Entry Prior Prior Level of Function SCALE: Activities may be completed with or without assistive devices. 3-Bgulxzvwzt-zghvrct completes the activity by him/herself with no assistance from a helper. 5-Set-up or Clean-up Assistance-helper sets up or cleans up; patient completes activity. [place] assists only prior to or following the activity. 4-Supervision or Touching Assistance-helper provides verbal cues and/or touching/steadying and/or contact guard assistance as patient completes activity. Assistance may be provided throughout the activity or intermittently. 3-Partial/Moderate Assistance-helper does LESS THAN HALF the effort. [place] lifts, holds or supports trunk or limbs, but provides less than half the effort. 2-Substantial/Maximal Assistance-helper does MORE THAN HALF the effort. [place] lifts or holds trunk or limbs and provides more than half the effort. 4-Zvestalvi-fhjkrm does ALL the effort. Patient does none of the effort to complete the activity. Or, the assistance of 2 or more helpers is required for the patient to complete the activity. If activity was not attempted, code reason: 7-Patient Refused. 9-Not Applicable-not attempted and the patient did not perform the activity before the current illness, exacerbation or injury. 10-Not Attempted due to Environmental Limitations-(lack of equipment, weather restraints, etc.). 88-Not Attempted due to Medical Conditions or Safety Concerns. Bed Mobility: 2 Transfers (B,C,W/C): 2 Gait: 1 Pt has been maximum assist since her femur fx. PT Evaluation-Current Objective Patient Orientation: Person, Place, [place] Attachments: Su Catheter, IV ROM/Strength ROM Upper Extremities gross 3/5 ROM Lower Extremities left knee immobilized; limited (R) hip and knee flexion Strength Lower Extremities Gross 2/5 throughout Sensory Vision: Wears Glasses Hearing: Functional Hand Dominance: Right Sensation Right Lower Extremit: Intact Sensation Left Lower Extremity: Intact Transfers Roll Left to Right (QC): 2 Sit to Lying (QC): 2 Lying to Sitting/Side of Bed(Q: 2 Sit to Stand (QC): 1 Chair/Zyq-go-Eogza Xfer(QC): 1 Pt initiates transfers and sit to stand but has insufficient strength to complete the task. She is dependent assist due to LE weakness and innability to use the (L) LE Gait Does the Patient Walk?: No and Walking Goal NOT indicated Anticipated Mode of Locomotion: Wheelchair Balance Sitting Static: Fair Sitting Dynamic: Fair Standing Static: Poor Standing Dynamic: Poor Assessment/Needs Pt has generalized weaknesss throughout the LEs and core due to prolonged immobility. She is dependent assist for transfers due to inability to stand on one leg. She will benefit from PT to address strength and mobility. Rehab Potential: Guarded Post Rehab Potential-Barriers: Co-morbidities includeing mental confusion PT Usp Goals Usp Goals PT Usp Goals Time Frame: Nov 06, 2021 Roll Left & Right (QC): 4 Sit to Lying (QC): 4 Lying-Sitting on Side/Bed(QC): 4 Sit to Stand (QC): 3 Chair/Wex-ym-Okfab Xfer(QC): 3 PT Plan Problem List Problem List: Functional Strength, Balance, Bed Mobility Treatment/Plan Treatment Plan: Continue Plan of Care Treatment Plan: Bed Mobility, Functional Strength, Therapeutic Exercise Treatment Duration: Nov 06, 2021 Frequency: 6 times per week Estimated Hrs Per Day: .25 hour per day Patient and/or Family Agrees t: Yes Discharge Recommendations Therapy Discharge Recommendati: 24 Hour Supervision, Post Acute PT, Post Acute OT Time/GCodes Time In: 1100 Time Out: 1130 Total Billed Treatment Time: 30 Total Billed Treatment visit, evaluation high complexity 30 min ELIECER ADLER PT Oct 30, 2021 13:20
[2021-10-30] MEDS: FLUCONAZOLE 200 MG/NACL 100 ML (PRE-MIX) IV SCH (14:49)
[2021-10-30 15:42] VITALS: BP 130/63
[2021-10-30 19:54] VITALS: BP 135/60
[2021-10-30] MEDS: MELATONIN 3 MG TABLET PO PRN (20:35)
[2021-10-30 23:43] VITALS: BP 127/69
[2021-10-31] MEDS: CEFEPIME 1,000 MG/NS 50 ML IVPB IV SCH ×6 (01:34→17:02)
[2021-10-31 03:25] VITALS: BP 123/62
[2021-10-31] MEDS: inSUlin ASPART (NovoLOG) 1 UNIT/0.01 ML (CHARGE PER UNIT) SC SCH ×4 (06:06→21:03)
[2021-10-31] MEDS: KCL 10 MEQ TAB (MICRO K) PO SCH ×2 (06:07→17:02)
[2021-10-31 06:15] LABS: ALBUMIN 2.5 GM/DL (3.2-4.5)
[2021-10-31 06:16] LABS: POTASSIUM 3.7 MMOL/L (3.6-5.0)
[2021-10-31 06:17] LABS: CALCIUM 8.2 MG/DL (8.5-10.1)
[2021-10-31 06:20] LABS: BILIRUBIN,TOTAL 2.1 MG/DL (0.1-1.0)
[2021-10-31 06:21] LABS: CREATININE SERUM 0.55 MG/DL (0.60-1.30)
[2021-10-31 06:41] LABS: BASOPHILS % (AUTO) 1 % (0-10); EOSINOPHILS # (AUTO) 0.2 10^3/uL (0.0-0.3); EOSINOPHILS % (AUTO) 2 % (0-10); HEMATOCRIT 29 % (35-52); HEMOGLOBIN 8.8 g/dL (11.5-16.0); LYMPHOCYTES # (AUTO) 1.1 10^3/uL (1.0-4.0); LYMPHOCYTES % (AUTO) 16 % (12-44); MEAN CORPUSCULAR HEMOGLOBIN 30 pg (25-34); MEAN CORPUSCULAR HGB CONC 31 g/dL (32-36); MEAN CORPUSCULAR VOLUME 97 fL (80-99); MEAN PLATELET VOLUME 11.3 fL (9.0-12.2); MONOCYTES # (AUTO) 0.4 10^3/uL (0.0-1.0); MONOCYTES % (AUTO) 6 % (0-12); NEUTROPHILS # (AUTO) 4.6 10^3/uL (1.8-7.8); NEUTROPHILS % (AUTO) 71 % (42-75); PLATELET COUNT 356 10^3/uL (130-400); WHITE BLOOD COUNT 6.5 10^3/uL (4.3-11.0)
[2021-10-31 07:47] VITALS: BP 108/59
[2021-10-31] MEDS: SPIRONOLACTONE 25 MG (ALDACTONE) TAB PO SCH (08:21)
[2021-10-31] MEDS: ASPIRIN 81 MG CHEW (CHILDREN'S ASA) PO SCH (08:21)
[2021-10-31] MEDS: APIXABAN 5 MG (ELIQUIS) TABLET PO SCH ×2 (08:21→21:04)
[2021-10-31] MEDS: lisINopril 5 MG (PRINIVIL) TABLET PO SCH (08:22)
[2021-10-31] MEDS: FUROSEMIDE 40 MG/4 ML INJ (LASIX) IVP SCH (08:22)
--- NOTE | 2021-10-31 09:21 | Physical Therapy Daily Note ---
PT Daily Note-Current Subjective Patient agrees to exercises only. 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 Mental Status Patient Orientation: Person Attachments: Su Catheter, IV Transfers SCALE: Activities may be completed with or without assistive devices. 6-Mbgmdkfxbj-nhaokrp completes the activity by him/herself with no assistance from a helper. 5-Set-up or Clean-up Assistance-helper sets up or cleans up; patient completes activity. [place] assists only prior to or following the activity. 4-Supervision or Touching Assistance-helper provides verbal cues and/or touching/steadying and/or contact guard assistance as patient completes activity. Assistance may be provided throughout the activity or intermittently. 3-Partial/Moderate Assistance-helper does LESS THAN HALF the effort. [place] lifts, holds or supports trunk or limbs, but provides less than half the effort. 2-Substantial/Maximal Assistance-helper does MORE THAN HALF the effort. [place] lifts or holds trunk or limbs and provides more than half the effort. 7-Smrxyhujt-msqbyr does ALL the effort. Patient does none of the effort to complete the activity. Or, the assistance of 2 or more helpers is required for the patient to complete the activity. If activity was not attempted, code reason: 7-Patient Refused. 9-Not Applicable-not attempted and the patient did not perform the activity before the current illness, exacerbation or injury. 10-Not Attempted due to Environmental Limitations-(lack of equipment, weather restraints, etc.). 88-Not Attempted due to Medical Conditions or Safety Concerns. Weight Bearing Left Lower Extremity: Left Non Weight Bearing knee immobilizer on the (L) LE; non wt bearing Exercises Supine Ex: Ankle pumps, Quad Set, Heel Slides (right LE), Straight leg raise, Hip abd/add Supine Reps: 15 (AAROM bilateral LE/left knee immobilizer in place) Assessment Current Status: Poor Progress Patient tolerates exercises well. Declined OOB activity on this date. PT Forestry Aide Goals Forestry Aide Goals PT Skilled Nursing Goals Time Frame: Nov 06, 2021 Roll Left & Right (QC): 4 Sit to Lying (QC): 4 Lying-Sitting on Side/Bed(QC): 4 Sit to Stand (QC): 3 Chair/Tvh-pl-Bvlyb Xfer(QC): 3 PT Plan Treatment/Plan Treatment Plan: Continue Plan of Care Treatment Plan: Bed Mobility, Functional Strength, Therapeutic Exercise Treatment Duration: Nov 06, 2021 Frequency: 6 times per week Estimated Hrs Per Day: .25 hour per day Patient and/or Family Agrees t: Yes Time/GCodes Time In: 805 Time Out: 816 Total Billed Treatment Time: 11 Total Billed Treatment 1 visit EX 11 min LILLY CARRASCO PT Oct 31, 2021 09:21
[2021-10-31 11:05] VITALS: BP 121/70
--- NOTE | 2021-10-31 11:17 | Occupational Ther Daily Note ---
OT Current Status-Daily Note Subjective Pt laying in bed with CNAs obtaining vital upon OT arrival, agreeable to tx. Mental Status/Objective Patient Orientation: Person Attachments: Su Catheter, IV, Telemetry ADL-Treatment Therapy Code Descriptions/Definitions Functional [place] Measure: 0=Not Assessed/NA 4=Minimal Assistance 1=Total Assistance 5=Supervision or Setup 2=Maximal Assistance 6=Modified [place] 3=Moderate Assistance 7=Complete IndependenceSCALE: Activities may be completed with or without assistive devices. 0-Duytfdktsi-rymjgsy completes the activity by him/herself with no assistance from a helper. 5-Set-up or Clean-up Assistance-helper sets up or cleans up; patient completes activity. [place] assists only prior to or following the activity. 4-Supervision or Touching Assistance-helper provides verbal cues and/or touching/steadying and/or contact guard assistance as patient completes activity. Assistance may be provided throughout the activity or intermittently. 3-Partial/Moderate Assistance-helper does LESS THAN HALF the effort. [place] lifts, holds or supports trunk or limbs, but provides less than half the effort. 2-Substantial/Maximal Assistance-helper does MORE THAN HALF the effort. [place] lifts or holds trunk or limbs and provides more than half the effort. 9-Hzdncwofg-wwtcqe does ALL the effort. Patient does none of the effort to complete the activity. Or, the assistance of 2 or more helpers is required for the patient to complete the activity. If activity was not attempted, code reason: 7-Patient Refused. 9-Not Applicable-not attempted and the patient did not perform the activity before the current illness, exacerbation or injury. 10-Not Attempted due to Environmental Limitations-(lack of equipment, weather restraints, etc.). 88-Not Attempted due to Medical Conditions or Safety Concerns. Oral Hygiene (QC): 3 (Mod A) Other Treatment Pt remained in bed throughout duration of tx. She declined all OOB activities at this time, but was agreeable to oral care at bed level. Pt required v/c's for sequencing and assistance with putting toothpaste on brush, holding spit basin, and wiping mouth. OT removed spit basin and pt continued to spit out toothpaste and water onto self. Pt's son was present and was able to provide additional information about pt's PLOF, indicates pt has required total assist with all ADLs for a few years, and that pt is at her baseline. OT placed pillow under pt's LUE and extended fingers as pt likes to keep hand in a fist. Post tx, pt left in bed with call light in reach and all needs met. Education OT Patient Education: Correct positioning, Modified ADL techniques, Progress toward Goal/Update tx plan, Purpose of tx/functional activities, Rehab process Teaching Recipient: Patient, Family (son) Teaching Methods: Discussion Response to Teaching: Verbalize Understanding, Reinforcement Needed OT Prison Goals Prison Goals Time Frame: Nov 16, 2021 Eating (QC): 5 Oral Hygiene (QC): 4 (not met) Shower/Bathe Self (QC): 3 Lower Body Dressing (QC): 2 On/Off Footwear (QC): 2 1=Demonstrate adherence to instructed precautions during ADL tasks. 2=Patient will verbalize/demonstrate understanding of assistive devices/modifications for ADL. 3=Patient will improve strength/tolerance for activity to enable patient to perform ADL's. OT Education/Plan Problem List/Assessment Assessment: No Skilled OT Needs ID'd Pt's son was present and was able to provide additional information about pt's PLOF, indicates pt has required total assist with all ADLs for a few years, and that pt is at her baseline. No skilled OT services indicated at this time due to pt being at PLOF, d/c from OT. Discharge Recommendations Plan/Recommendations: Discharge/Goals Met Treatment Plan/Plan of Care Patient would benefit from OT for education, treatment and training to promote independence in ADL's, mobility, safety and/or upper extremity function for ADL's. Plan of Care: ADL Retraining, Caregiver Training, Cognitive Retraining, Functional Mobility, Group Exercise/Act as Ind, Orthotic Fitting/Training, UE Funct Exercise/Act, UE Neuromus Re-Ed/Coord, W/C Management Training Treatment Duration: Nov 16, 2021 Frequency: 3 times per week (3-5x/week) Estimated Hrs Per Day: .25 hour per day Agreement: Yes Rehab Potential: Guarded Time/GCodes Start Time: 11:00 Stop Time: 11:12 Total Time Billed (hr/min): 12 Billed Treatment Time 1, ADL RAPHAEL SAWANT OT Oct 31, 2021 11:16
--- NOTE | 2021-10-31 12:24 | Progress Note - Hospitalist ---
LUIS F GONZALEZ MED STUDENT 10/31/21 1224: Subjective HPI/CC On Admission Date Seen by Provider: Oct 31, 2021 Time Seen by Provider: 08:30 CC: Chest pain with UTI and sepsis HPI: This is an 85 yr old female who had presented from [facility] status post fracture of her left femur. Repair by Dr. Mohr. Placed at [facility]. She suffered a fall. She was diagnosed with UTI and sepsis with elevated liver enzymes. Hemoglobin is 8.3. Son is concerned about the care at the [facility] and wants her to stay in the hospital for a couple months. Cefepime initiated for facility acquired UTI. Pt maintained on Eliquis. Cardiology was consulted for elevated troponin. Subjective/Events-last exam Pt lying in bed comfortably this morning. Pt reports she has no pain, but is fee ling weak and fatigued today. Pt states she is hopeful about going to [facility] as she is ready to get started with physical therapy. This is pending insurance approval currently. Pt and son have no concerns today. Review of Systems General: No Chills; Fatigue HEENT: No Head Aches, No Visual Changes Pulmonary: No Dyspnea, No Cough Cardiovascular: No: Chest Pain, Palpitations Gastrointestinal: No: Nausea, Vomiting Genitourinary: No Dysuria, No Frequency Musculoskeletal: No: neck pain, shoulder pain Neurological: Weakness; No: Numbness Focused Exam Lactate Level 10/28/21 13:45: Lactic Acid Level 2.49*H 10/28/21 16:35: Lactic Acid Level 1.75 Time of Focused Exam: 15:10 Objective Exam Vital Signs Vital Signs Date Time Temp Pulse Resp B/P (MAP) Pulse Ox O2 Delivery O2 Flow Rate FiO2 10/31/21 11:05 36.7 73 16 121/70 (87) 95 Room Air Capillary Refill : Less Than 3 Seconds General Appearance: No Apparent Distress, Obese HEENT: PERRL/EOMI, Pharynx Normal Neck: Full Range of Motion, Normal Inspection Respiratory: Chest Non Tender, Lungs Clear, Normal Breath Sounds Cardiovascular: No Murmur, Irregularly Irregular Gastrointestinal: Normal Bowel Sounds, Non Tender, Soft Extremity: Normal Capillary Refill, Other (LLE in brace) Neurologic/Psychiatric: Alert, Oriented x3, Normal Mood/Affect Skin: Normal Color, Warm/Dry Lymphatic: No Adenopathy Results/Procedures Lab Laboratory Tests 10/31/21 05:32 Patient resulted labs reviewed. Assessment/Plan Assessment and Plan Assess & Plan/Chief Complaint Sepsis d/t UTI and fungemia Afib on anticoagulation Anemia HTN Diabetes Recent hospitalization for surgical fixation of LLE Sepsis d/t UTI and fungemia -Cefepime and fluconazole -Urine culture grew proteus mirabilis and gram neg rods -Blood culture grew fungal hyphae and E.coli Afib on anticoagulation -Eliquis 5mg BID Anemia -Hgb stable HTN -Currently normotensive -Spironolactone and lasix Diabetes -SSI Recent hospitalization for surgical fixation of LLE -PT/OT -Placement at [facility] pending insurance approval Likely d/c tomorrow once insurance for [facility] is approved Clinical Quality Measures AMI/AHF: ASA po Prior to arrival: CANDY Pina DO 11/01/21 0556: Subjective Subjective/Events-last exam Pt is doing a lot better [facility] pending her insurance E.Coli bacteremia maintained on Rocephin Fungemia maintained on Diflucan Son is at the bedside Pt appears to be very end stage given her advanced age Review of Systems General: Fatigue Objective Exam General Appearance: No Apparent Distress, WD/WN, Chronically ill Respiratory: Lungs Clear Cardiovascular: Irregularly Irregular Assessment/Plan Assessment and Plan Assess & Plan/Chief Complaint DC [facility] once approved Supervisory-Addendum Brief Verification & Attestation Participated in pt care: history, MDM, physical Personally performed: exam, history, MDM, supervision of care Care discussed with: Medical Student Procedures: n/a Results interpretation: Verified all documentation Verification and Attestation of Medical Student E/M Service A medical student performed and documented this service in my presence. I reviewed and verified all information documented by the medical student and made modifications to such information, when appropriate. I personally performed the physical exam and medical decision making. Candy Bonds, Nov 01, 2021,05:55 LUIS F GONZALEZ MED STUDENT Oct 31, 2021 12:24 CANDY BONDS DO Nov 01, 2021 05:56
--- NOTE | 2021-10-31 12:47 | Progress Note - Cardiology ---
Cardiology SOAP Progress Note Subjective: Sitting up in bed States she feels good today No c/o CP, SOB or palpitations Objective: I&O/Vital Signs 10/31/21 10/31/21 10/31/21 10/31/21 01:00 03:25 07:00 07:47 Temp 36.2 36.3 Pulse 62 65 67 70 Resp 18 16 B/P (MAP) 123/62 (82) 108/59 (75) Pulse Ox 99 99 O2 Delivery Room Air Room Air 10/31/21 10/31/21 08:00 11:05 Temp 36.7 Pulse 73 Resp 16 B/P (MAP) 121/70 (87) Pulse Ox 95 O2 Delivery Room Air Room Air 10/30/21 23:59 Intake Total 1350 ml Output Total 3075 ml Balance -1725 ml Constitutional: well-developed, well-nourished, other (oriented to self and place only) Respiratory: chest expansion is symmetric, chest is bilaterally symmetric, other Cardiovascular: irregularly irregular, S1 and S2 Gastrointestional: soft, round, audible bowel sounds Extremities: no lower extremity edema bilateral Neurologic/Psychiatric: grossly intact Skin: other Results/Procedures: Labs Laboratory Tests 10/30/21 15:59: Glucometer 392H 10/30/21 20:21: Glucometer 302H 10/31/21 05:31: Glucometer 250H 10/31/21 05:32: White Blood Count 6.5, Red Blood Count 2.95L, Hemoglobin 8.8L, Hematocrit 29L, Mean Corpuscular Volume 97, Mean Corpuscular Hemoglobin 30, Mean Corpuscular Hemoglobin Concent 31L, Red Cell Distribution Width 14.6H, Platelet Count 356, Mean Platelet Volume 11.3, Immature Granulocyte % (Auto) 4, Neutrophils (%) (Auto) 71, Lymphocytes (%) (Auto) 16, Monocytes (%) (Auto) 6, Eosinophils (%) (Auto) 2, Basophils (%) (Auto) 1, Neutrophils # (Auto) 4.6, Lymphocytes # (Auto) 1.1, Monocytes # (Auto) 0.4, Eosinophils # (Auto) 0.2, Basophils # (Auto) 0.0, Immature Granulocyte # (Auto) 0.3H, Sodium Level 133L, Potassium Level 3.7, Chloride Level 99, Carbon Dioxide Level 26, Anion Gap 8, Blood Urea Nitrogen 16, Creatinine 0.55L, Estimat Glomerular Filtration Rate 89, BUN/Creatinine Ratio 29, Glucose Level 268H, Calcium Level 8.2L, Corrected Calcium 9.4, Total Bilirubin 2.1H, Aspartate Amino Transf (AST/SGOT) 77H, Alanine Aminotransferase (ALT/SGPT) 111H, Alkaline Phosphatase 481H, Total Protein 5.0L, Albumin 2.5L 10/31/21 11:04: Glucometer 336H Microbiology 10/28/21 Urine Culture - Preliminary, Resulted Proteus mirabilis Gram Negative Claude 10/28/21 Blood Culture - Preliminary, Resulted Positive; See Report Escherichia coli Testing In Progress Laboratory Tests 10/30/21 05:30 10/30/21 05:44 10/31/21 05:32 A/P: Assessment: Chronic a-fib - A-fib with RVR - rate controlled at this time without rate controlling agents, intermittent asymptomatic bradycardia - Chronic OAC with Xarelto Dilated cardiomyopathy and acute on chronic HFrEF - Echocardiogram of 10-13-[address] Russell showed LVEF 40-45%. PASP 60-65 mmHg - Echo on 10/29/21: LVEF 30-35%, PASP 60-65 mmHg Pulmonary hypertension - probably at least partly due to L heart failure UTI with sepsis - management per medical services Minimally elevated troponin, likely Type 2 [place] - likely secondary to sepsis, transient hypotension and a-fib with RVR and/or ac on chronic systolic CHF Systolic CHF - treat with diuretics H/o HTN - currently relatively hypotensive H/O LLE fracture with repair on 10-13-[address] 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, LUE and left sided facial droop Liver enzyme elevation - undetermined etiology; suspect passive hepatic congestion - medical services managing Anemia - undetermined etiology - medical services managing Plan: * Continue Xarelto for stroke prophylaxis * Treat with heart failure meds: not suitable for beta-darwin (bradycardia at baseline); probably won't tolerate Entresto because of relatively low bp at baseline; tolerating current low dose MARTINE-inhib and spironolactone to furosemide * Change Lasix to oral * UTI with sepsis - management per medical services * Anemia - management per medical services * Monitor lab and replace electrolytes as indicated * LFT's improving - management per medical services Clinical Quality Measures AMI/AHF: ASA po Prior to arrival: BRIANDA Stratton E BUSINESS MANAGER Oct 31, 2021 12:47
[2021-10-31] MEDS: FLUCONAZOLE 200 MG/NACL 100 ML (PRE-MIX) IV SCH (15:58)
[2021-10-31] MEDS ORDERED: MILK OF MAGNESIA 400 MG/5 ML 30 ML UDC PO PRN (16:00)
[2021-10-31] MEDS ORDERED: NON-FORMULARY MEDICATION 1 EA EA (Potassium Chloride 10 MEQ) PO SCH (16:00)
[2021-10-31] MEDS ORDERED: polyethylene glycoL POWDER 17 GM (MIRALAX) PACK PO PRN (16:00)
[2021-10-31] MEDS ORDERED: NON-FORMULARY MEDICATION 1 EA EA (Menthol (Biofreeze) 1 APPLIC) TP PRN (16:00)
[2021-10-31] MEDS ORDERED: ACETAMINOPHEN 325 MG TABLET PO PRN (16:00)
[2021-10-31] MEDS ORDERED: NON-FORMULARY MEDICATION 1 EA EA (Magnesium Oxide (Magnesium) 400 MG) PO SCH (16:00)
[2021-10-31] MEDS ORDERED: SENNOSIDES 8.6 MG (SENOKOT) TAB PO PRN (16:00)
[2021-10-31] MEDS ORDERED: inSUlin (REGULAR) HUMAN 1 UNIT/0.01 ML (CHARGE PER UNIT) SC NR (16:00)
[2021-10-31] MEDS ORDERED: GLIMEPIRIDE 1 MG (AMARYL) TAB PO NR (16:00)
[2021-10-31 16:20] VITALS: BP 120/67
[2021-10-31] MEDS: MAGNESIUM OXIDE (MAG-OX)400 MG TAB PO SCH (16:30)
--- NOTE | 2021-10-31 18:18 | Progress Note - Cardiology ---
Cardiology SOAP Progress Note Subjective: No cp or palp or syncope or shortness of breath No n/v/d Gen weakness Objective: I&O/Vital Signs 10/31/21 10/31/21 10/31/21 10/31/21 07:00 07:47 08:00 11:05 Temp 36.3 36.7 Pulse 67 70 73 Resp 16 16 B/P (MAP) 108/59 (75) 121/70 (87) Pulse Ox 99 95 O2 Delivery Room Air Room Air Room Air 10/31/21 10/31/21 13:00 16:20 Temp 36.6 Pulse 80 70 Resp 18 B/P (MAP) 120/67 (84) Pulse Ox 95 O2 Delivery Room Air 10/31/21 00:00 Intake Total 1350 ml Output Total 3075 ml Balance -1725 ml Constitutional: well-developed, well-nourished, other (oriented to self and place only) Respiratory: chest expansion is symmetric, chest is bilaterally symmetric, other Cardiovascular: irregularly irregular, S1 and S2 Gastrointestional: soft, round, audible bowel sounds Extremities: no lower extremity edema bilateral Neurologic/Psychiatric: grossly intact Skin: other Results/Procedures: Labs Laboratory Tests 10/30/21 20:21: Glucometer 302H 10/31/21 05:31: Glucometer 250H 10/31/21 05:32: White Blood Count 6.5, Red Blood Count 2.95L, Hemoglobin 8.8L, Hematocrit 29L, Mean Corpuscular Volume 97, Mean Corpuscular Hemoglobin 30, Mean Corpuscular Hemoglobin Concent 31L, Red Cell Distribution Width 14.6H, Platelet Count 356, Mean Platelet Volume 11.3, Immature Granulocyte % (Auto) 4, Neutrophils (%) (Auto) 71, Lymphocytes (%) (Auto) 16, Monocytes (%) (Auto) 6, Eosinophils (%) (Auto) 2, Basophils (%) (Auto) 1, Neutrophils # (Auto) 4.6, Lymphocytes # (Auto) 1.1, Monocytes # (Auto) 0.4, Eosinophils # (Auto) 0.2, Basophils # (Auto) 0.0, Immature Granulocyte # (Auto) 0.3H, Sodium Level 133L, Potassium Level 3.7, Chloride Level 99, Carbon Dioxide Level 26, Anion Gap 8, Blood Urea Nitrogen 16, Creatinine 0.55L, Estimat Glomerular Filtration Rate 89, BUN/Creatinine Ratio 29, Glucose Level 268H, Calcium Level 8.2L, Corrected Calcium 9.4, Total Bilirubin 2.1H, Aspartate Amino Transf (AST/SGOT) 77H, Alanine Aminotransferase (ALT/SGPT) 111H, Alkaline Phosphatase 481H, Total Protein 5.0L, Albumin 2.5L 10/31/21 11:04: Glucometer 336H 10/31/21 15:30: Glucometer 427*H Microbiology 10/28/21 Urine Culture - Preliminary, Resulted Proteus mirabilis Escherichia coli 10/28/21 Blood Culture - Preliminary, Resulted Positive; See Report Escherichia coli Laboratory Tests 10/30/21 05:30 10/30/21 05:44 10/31/21 05:32 A/P: Assessment: Chronic a-fib - A-fib with RVR - rate controlled at this time without rate controlling agents, intermittent asymptomatic bradycardia - Chronic OAC with Xarelto Dilated cardiomyopathy and acute on chronic HFrEF - Echocardiogram of 10-13-[address] Russell showed LVEF 40-45%. PASP 60-65 mmHg - Echo on 10/29/21: LVEF 30-35%, PASP 60-65 mmHg Pulmonary hypertension - probably at least partly due to L heart failure UTI with sepsis - management per medical services Minimally elevated troponin, likely Type 2 [place] - likely secondary to sepsis, transient hypotension and a-fib with RVR and/or ac on chronic systolic CHF Systolic CHF - treat with diuretics H/o HTN - currently relatively hypotensive H/O LLE fracture with repair on 10-13-[address] 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, LUE and left sided facial droop Liver enzyme elevation - undetermined etiology; suspect passive hepatic congestion - medical services managing Anemia - undetermined etiology - medical services managing Plan: * Continue Xarelto for stroke prophylaxis * Treat with heart failure meds: not suitable for beta-darwin (bradycardia at baseline); probably won't tolerate Entresto because of relatively low bp at baseline; tolerating current low dose MARTINE-inhib and spironolactone to furosemide * Change Lasix to oral * UTI with sepsis - management per medical services * Anemia - management per medical services * Monitor lab and replace electrolytes as indicated * LFT's improving - management per medical services Clinical Quality Measures AMI/AHF: ASA po Prior to arrival: RYAN Chu MD FACP [facility] CCDS Oct 31, 2021 18:18
[2021-10-31 20:11] VITALS: BP 135/72
[2021-10-31] MEDS: DONEPEZIL 10 MG (ARICEPT) TAB PO SCH (21:03)
[2021-10-31] MEDS: ALPRAZolam 0.25 MG (XANAX) TAB PO PRN (21:03)
[2021-10-31] MEDS: MELATONIN 3 MG TABLET PO PRN (21:03)
[2021-10-31] MEDS: rOPINIRole 0.25 MG (REQUIP) TAB PO SCH (21:03)
[2021-10-31] MEDS: MEMANTINE 10 MG (NAMENDA) TABLET PO SCH (21:03)
[2021-10-31 23:34] VITALS: BP 140/67
[2021-11-01] MEDS: CEFEPIME 1,000 MG/NS 50 ML IVPB IV SCH ×4 (03:01→09:03)
[2021-11-01 03:42] VITALS: BP 129/60
[2021-11-01] MEDS: MULTIVIT W/MINERALS TAB (THERAGRAN M) PO SCH (06:01)
[2021-11-01] MEDS: GLIMEPIRIDE 2 MG (AMARYL) TAB PO SCH (06:01)
[2021-11-01] MEDS: rOPINIRole 0.25 MG (REQUIP) TAB PO SCH ×3 (06:02→21:05)
[2021-11-01] MEDS: inSUlin ASPART (NovoLOG) 1 UNIT/0.01 ML (CHARGE PER UNIT) SC SCH ×4 (06:02→20:22)
[2021-11-01 07:30] VITALS: BP 111/50
[2021-11-01 08:18] LABS: BASOPHILS # (AUTO) 0.1 10^3/uL (0.0-0.1); BASOPHILS % (AUTO) 1 % (0-10); EOSINOPHILS # (AUTO) 0.3 10^3/uL (0.0-0.3); EOSINOPHILS % (AUTO) 3 % (0-10); HEMATOCRIT 31 % (35-52); HEMOGLOBIN 9.3 g/dL (11.5-16.0); LYMPHOCYTES # (AUTO) 1.6 10^3/uL (1.0-4.0); LYMPHOCYTES % (AUTO) 20 % (12-44); MEAN CORPUSCULAR HEMOGLOBIN 29 pg (25-34); MEAN CORPUSCULAR HGB CONC 30 g/dL (32-36); MEAN CORPUSCULAR VOLUME 98 fL (80-99); MEAN PLATELET VOLUME 10.1 fL (9.0-12.2); MONOCYTES # (AUTO) 0.7 10^3/uL (0.0-1.0); MONOCYTES % (AUTO) 9 % (0-12); NEUTROPHILS # (AUTO) 4.8 10^3/uL (1.8-7.8); NEUTROPHILS % (AUTO) 62 % (42-75); PLATELET COUNT 400 10^3/uL (130-400); WHITE BLOOD COUNT 7.7 10^3/uL (4.3-11.0)
[2021-11-01] MEDS ORDERED: NON-FORMULARY MEDICATION 1 EA EA (Ferrous Sulfate 324 MG) PO SCH (09:00)
[2021-11-01] MEDS: PANTOPRAZOLE 20 MG TABLET (PROTONIX) PO SCH (09:03)
[2021-11-01] MEDS: APIXABAN 5 MG (ELIQUIS) TABLET PO SCH ×2 (09:03→20:01)
[2021-11-01] MEDS: MAGNESIUM OXIDE (MAG-OX)400 MG TAB PO SCH ×2 (09:03→16:18)
[2021-11-01] MEDS: VITAMIN D3 25 MCG (1,000 UNITS) TABLET PO SCH (09:03)
[2021-11-01] MEDS: SPIRONOLACTONE 25 MG (ALDACTONE) TAB PO SCH (09:04)
[2021-11-01] MEDS: lisINopril 5 MG (PRINIVIL) TABLET PO SCH (09:04)
[2021-11-01] MEDS: ASPIRIN E.C. 81 MG (ECOTRIN) TAB PO SCH (09:04)
[2021-11-01] MEDS: FERROUS SULF 325 MG (IRON) TAB PO SCH (09:04)
[2021-11-01] MEDS: FUROSEMIDE 40 MG (LASIX) TAB PO SCH (09:04)
[2021-11-01] MEDS: KCL 10 MEQ TAB (MICRO K) PO SCH ×2 (09:04→18:00)
[2021-11-01] MEDS: MEMANTINE 10 MG (NAMENDA) TABLET PO SCH ×2 (09:04→20:01)
[2021-11-01 11:07] VITALS: BP 104/51
--- NOTE | 2021-11-01 11:18 | Progress Note - Hospitalist ---
LUIS F GONZALEZ A MED STUDENT 11/01/21 1118: Subjective HPI/CC On Admission CC: Chest pain with UTI and sepsis HPI: This is an 85 yr old female who had presented from [facility] status post fracture of her left femur. Repair by Dr. Mohr. Placed at [facility]. She suffered a fall. She was diagnosed with UTI and sepsis with elevated liver enzymes. Hemoglobin is 8.3. Son is concerned about the care at the shelter and wants her to stay in the hospital for a couple months. Cefepime initiated for facility acquired UTI. Pt maintained on Eliquis. Cardiology was consulted for elevated troponin. Subjective/Events-last exam Nieves is an 85 yo female who was admitted from [facility] s/p fracture of left femur that was repaired by Dr. Mohr. Pt was found to have UTI with sepsis, elevated liver enzymes and anemia with Hgb of 8.3. Pt was started on cefepime for facility acquired UTI. Pt has hx of Afib, maintained on eliquis. Cardiology was consulted for elevated troponin, but work up was unremarkable. Son had concerns of inadequate care at [facility], so placement into [facility] was initiated. Pt continues to recover well with minimal pain. Review of Systems General: No Chills, No Fatigue HEENT: No Head Aches, No Visual Changes Pulmonary: No Dyspnea, No Cough Cardiovascular: No: Chest Pain, Palpitations Gastrointestinal: No: Nausea, Vomiting Genitourinary: No Dysuria, No Frequency Musculoskeletal: No: neck pain, shoulder pain Neurological: No: Weakness, Numbness Focused Exam Time of Focused Exam: 15:10 Objective Exam Vital Signs Vital Signs Date Time Temp Pulse Resp B/P (MAP) Pulse Ox O2 Delivery O2 Flow Rate FiO2 11/01/21 11:07 36.4 94 16 104/51 (68) 98 Room Air Capillary Refill : Less Than 3 Seconds General Appearance: Chronically ill, Obese HEENT: PERRL/EOMI, Pharynx Normal Neck: Full Range of Motion, Normal Inspection Respiratory: Chest Non Tender, Other (diffuse course breath sounds bilaterally) Cardiovascular: No Murmur, Irregularly Irregular Gastrointestinal: Normal Bowel Sounds, Non Tender Extremity: Normal Capillary Refill, Pedal Edema (RLE 1+ pitting edema), Other (LLE in brace) Neurologic/Psychiatric: Alert, Oriented x3, Normal Mood/Affect Skin: Normal Color, Warm/Dry Lymphatic: No Adenopathy Results/Procedures Lab Laboratory Tests 11/01/21 08:06 Patient resulted labs reviewed. Assessment/Plan Assessment and Plan Assess & Plan/Chief Complaint Sepsis d/t UTI and fungemia Afib on anticoagulation Anemia HTN Diabetes Recent hospitalization for surgical fixation of LLE Sepsis d/t UTI and fungemia -Cefepime and fluconazole -Urine culture grew proteus mirabilis and gram neg rods -Blood culture grew fungal hyphae and E.coli Afib on anticoagulation -Eliquis 5mg BID Anemia -Hgb improved at 9.3 HTN -Currently normotensive -Spironolactone and lasix Diabetes -SSI Recent hospitalization for surgical fixation of LLE -PT/OT -Placement at [facility] pending insurance approval Likely d/c tomorrow once insurance for CH&R is approved Clinical Quality Measures AMI/AHF: ASA po Prior to arrival: No CANDY BONDS DO 11/01/218: Subjective HPI/CC On Admission Date Seen by Provider: Nov 01, 2021 Time Seen by Provider: 09:00 Supervisory-Addendum Brief Verification & Attestation Participated in pt care: history, MDM, physical Personally performed: exam, history, MDM, supervision of care Care discussed with: Medical Student Procedures: n/a Results interpretation: Verified all documentation Verification and Attestation of Medical Student E/M Service A medical student performed and documented this service in my presence. I reviewed and verified all information documented by the medical student and made modifications to such information, when appropriate. I personally performed the physical exam and medical decision making. Candy Bonds, Nov 01, 2021,21:58 LUIS F GONZALEZ MED STUDENT Nov 01, 2021 11:18 CANDY BONDS DO Nov 01, 2021 21:58
--- NOTE | 2021-11-01 11:45 | Physical Therapy Daily Note ---
PT Daily Note-Current Subjective Patient incontinent requiring dependent assist of 2-3 to change and cleanse. Mental Status Patient Orientation: Person Transfers SCALE: Activities may be completed with or without assistive devices. 5-Vrdcslrmki-wcihwuq completes the activity by him/herself with no assistance from a helper. 5-Set-up or Clean-up Assistance-helper sets up or cleans up; patient completes activity. Steptoe assists only prior to or following the activity. 4-Supervision or Touching Assistance-helper provides verbal cues and/or touching/steadying and/or contact guard assistance as patient completes activity. Assistance may be provided throughout the activity or intermittently. 3-Partial/Moderate Assistance-helper does LESS THAN HALF the effort. Steptoe lifts, holds or supports trunk or limbs, but provides less than half the effort. 2-Substantial/Maximal Assistance-helper does MORE THAN HALF the effort. Steptoe lifts or holds trunk or limbs and provides more than half the effort. 6-Cctdaajjp-wmtrxq does ALL the effort. Patient does none of the effort to complete the activity. Or, the assistance of 2 or more helpers is required for the patient to complete the activity. If activity was not attempted, code reason: 7-Patient Refused. 9-Not Applicable-not attempted and the patient did not perform the activity before the current illness, exacerbation or injury. 10-Not Attempted due to Environmental Limitations-(lack of equipment, weather restraints, etc.). 88-Not Attempted due to Medical Conditions or Safety Concerns. Roll Left & Right (QC): 1 (x 2) Weight Bearing Left Lower Extremity: Left Non Weight Bearing knee immobilizer on the (L) LE; non wt bearing Exercises Supine Ex: Ankle pumps, Heel Slides (right LE), Straight leg raise, Hip abd/add Supine Reps: 12 Assessment Current Status: Poor Progress Patient continues to be dependent with all mobility and gross motor skills. Pl an dismissal to [place] soon. PT Usp Goals Speech Language Pathology Assistant Goals PT Usp Goals Time Frame: Nov 06, 2021 Roll Left & Right (QC): 4 Sit to Lying (QC): 4 Lying-Sitting on Side/Bed(QC): 4 Sit to Stand (QC): 3 Chair/Ltj-go-Tggjy Xfer(QC): 3 PT Plan Treatment/Plan Treatment Plan: Continue Plan of Care Treatment Plan: Bed Mobility, Functional Strength, Therapeutic Exercise Treatment Duration: Nov 06, 2021 Frequency: 6 times per week Estimated Hrs Per Day: .25 hour per day Patient and/or Family Agrees t: Yes Time/GCodes Time In: 1115 Time Out: 1125 Total Billed Treatment Time: 10 Total Billed Treatment 1 visit FA 10 min LILLY CARRASCO PT Nov 01, 2021 11:45
--- NOTE | 2021-11-01 12:15 | Progress Note - Cardiology ---
Cardiology SOAP Progress Note Subjective: No cp or palp or syncope No shortness of breath at rest No n/v/d Gen weakness and malaise present Objective: I&O/Vital Signs 11/01/21 11/01/21 11/01/21 11/01/21 01:00 03:42 07:00 07:30 Temp 36.0 36.1 Pulse 76 65 81 69 Resp 18 18 B/P (MAP) 129/60 (83) 111/50 (70) Pulse Ox 99 99 O2 Delivery Room Air Room Air 11/01/21 11:07 Temp 36.4 Pulse 94 Resp 16 B/P (MAP) 104/51 (68) Pulse Ox 98 O2 Delivery Room Air 11/01/21 00:00 Intake Total 1560 ml Output Total 3975 ml Balance -2415 ml Constitutional: well-developed, well-nourished, other (oriented to self and place only) Respiratory: chest expansion is symmetric, chest is bilaterally symmetric, other Cardiovascular: irregularly irregular, S1 and S2 Gastrointestional: soft, round, audible bowel sounds Extremities: no lower extremity edema bilateral Neurologic/Psychiatric: grossly intact Skin: other Results/Procedures: Labs Laboratory Tests 10/31/21 15:30: Glucometer 427*H 10/31/21 19:34: Glucometer 356H 10/31/21 20:57: Glucometer 331H 11/01/21 04:55: Glucometer 224H 11/01/21 08:06: White Blood Count 7.7, Red Blood Count 3.18L, Hemoglobin 9.3L, Hematocrit 31L, Mean Corpuscular Volume 98, Mean Corpuscular Hemoglobin 29, Mean Corpuscular Hemoglobin Concent 30L, Red Cell Distribution Width 15.0H, Platelet Count 400, Mean Platelet Volume 10.1, Immature Granulocyte % (Auto) 5, Neutrophils (%) (Auto) 62, Lymphocytes (%) (Auto) 20, Monocytes (%) (Auto) 9, Eosinophils (%) (Auto) 3, Basophils (%) (Auto) 1, Neutrophils # (Auto) 4.8, Lymphocytes # (Auto) 1.6, Monocytes # (Auto) 0.7, Eosinophils # (Auto) 0.3, Basophils # (Auto) 0.1, Immature Granulocyte # (Auto) 0.4H 11/01/21 11:06: Glucometer 320H Microbiology 10/28/21 Urine Culture - Preliminary, Resulted Proteus mirabilis Escherichia coli 10/28/21 Blood Culture - Preliminary, Resulted Positive; See Report Escherichia coli Laboratory Tests 10/31/21 05:32 11/01/21 08:06 A/P: Assessment: Chronic a-fib - A-fib with RVR - rate controlled at this time without rate controlling agents, intermittent asymptomatic bradycardia - Chronic OAC with Xarelto Dilated cardiomyopathy and acute on chronic HFrEF - Echocardiogram of 10-13-[address] Russell showed LVEF 40-45%. PASP 60-65 mmHg - Echo on 10/29/21: LVEF 30-35%, PASP 60-65 mmHg Pulmonary hypertension - probably at least partly due to L heart failure UTI with sepsis - management per medical services Minimally elevated troponin, likely Type 2 [place] - likely secondary to sepsis, transient hypotension and a-fib with RVR and/or ac on chronic systolic CHF Systolic CHF - treat with diuretics H/o HTN - currently relatively hypotensive H/O LLE fracture with repair on 10-13-[address] 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, LUE and left sided facial droop Liver enzyme elevation - undetermined etiology; suspect passive hepatic congestion - medical services managing Anemia - undetermined etiology, Medical services managing Plan: * Continue Xarelto for stroke prophylaxis * Treat with heart failure meds: not suitable for beta-darwin (bradycardia at baseline); probably won't tolerate Entresto because of relatively low bp at baseline; tolerating current low dose MARTINE-inhib and spironolactone to furosemide * Change Lasix to oral * UTI with sepsis - management per Medical services * Anemia - management per medical services * Monitor lab and replace electrolytes as indicated Clinical Quality Measures AMI/AHF: ASA po Prior to arrival: RYAN Chu MD FACP [facility] CCDS Nov 01, 2021 12:15
[2021-11-01] MEDS: CEPHALEXIN 250 MG (KEFLEX) CAP PO SCH ×2 (12:22→20:02)
[2021-11-01] MEDS ORDERED: ACET325T38 PO (13:46)
[2021-11-01] MEDS ORDERED: MAGN400T39 PO (13:46)
[2021-11-01] MEDS ORDERED: ATOR40TA70 PO (13:46)
[2021-11-01] MEDS ORDERED: LISI5TAB20 PO (13:46)
[2021-11-01] MEDS ORDERED: FLUC100T10 PO (13:46)
[2021-11-01] MEDS ORDERED: MULT-593 PO (13:46)
[2021-11-01] MEDS ORDERED: MEMA10TA57 PO (13:46)
[2021-11-01] MEDS ORDERED: FURO40TA4 PO (13:46)
[2021-11-01] MEDS ORDERED: POTA10TA37 PO (13:46)
[2021-11-01] MEDS ORDERED: APIX5TAB PO (13:46)
[2021-11-01] MEDS ORDERED: CEPH250C PO (13:46)
[2021-11-01] MEDS ORDERED: SNN187T PO (13:46)
[2021-11-01] MEDS ORDERED: ASPI-1238 PO (13:46)
[2021-11-01] MEDS ORDERED: ALPR0.254 PO (13:46)
[2021-11-01] MEDS ORDERED: ROPI0.5T4 PO (13:46)
[2021-11-01] MEDS ORDERED: CITA10TA9 PO (13:46)
[2021-11-01] MEDS ORDERED: PANT20TA18 PO (13:46)
[2021-11-01] MEDS ORDERED: GLIM2TAB4 PO (13:46)
[2021-11-01] MEDS ORDERED: INSU100V SQ (13:46)
[2021-11-01] MEDS ORDERED: FERR324T4 PO (13:46)
[2021-11-01] MEDS ORDERED: DONE10TA41 PO (13:46)
--- NOTE | 2021-11-01 13:48 | Discharge Summary ---
Discharge Summary Hospital Course Problems/Dx: (1) Atrial fibrillation with rapid ventricular response Status: Acute (2) Fall Status: Acute (3) Chest pain Status: Acute Qualifiers: Qualified Codes: R07.9 - Chest pain, unspecified (4) UTI (urinary tract infection) Status: Acute Qualifiers: Qualified Codes: N30.01 - Acute cystitis with hematuria (5) Sepsis Status: Acute Qualifiers: Qualified Codes: A41.9 - Sepsis, unspecified organism (6) Cardiomyopathy Hospital Course Date of Admission: Oct 28, 2021 at 19:09 Admission Diagnosis : Family Physician/Provider: David Bueno MD Date of Discharge: 11/01/21 Discharge Diagnosis: [ ] Hospital Course: [ ] Labs and Pending Lab Test: Laboratory Tests 10/31/21 15:30: Glucometer 427*H 10/31/21 19:34: Glucometer 356H 10/31/21 20:57: Glucometer 331H 11/01/21 04:55: Glucometer 224H 11/01/21 08:06: White Blood Count 7.7, Red Blood Count 3.18L, Hemoglobin 9.3L, Hematocrit 31L, Mean Corpuscular Volume 98, Mean Corpuscular Hemoglobin 29, Mean Corpuscular Hemoglobin Concent 30L, Red Cell Distribution Width 15.0H, Platelet Count 400, Mean Platelet Volume 10.1, Immature Granulocyte % (Auto) 5, Neutrophils (%) (Auto) 62, Lymphocytes (%) (Auto) 20, Monocytes (%) (Auto) 9, Eosinophils (%) (Auto) 3, Basophils (%) (Auto) 1, Neutrophils # (Auto) 4.8, Lymphocytes # (Auto) 1.6, Monocytes # (Auto) 0.7, Eosinophils # (Auto) 0.3, Basophils # (Auto) 0.1, Immature Granulocyte # (Auto) 0.4H 11/01/21 11:06: Glucometer 320H Microbiology 10/28/21 Urine Culture - Preliminary, Resulted Proteus mirabilis Escherichia coli 10/28/21 Blood Culture - Preliminary, Resulted Positive; See Report Escherichia coli Home Meds Active Lisinopril 5 Mg Tablet 2.5 Mg PO DAILY Cephalexin 250 Mg Capsule 500 Mg PO TID Fluconazole 100 Mg Tablet 100 Mg PO DAILY@1500 ALPRAZolam 0.25 Mg Tablet 0.25 Mg PO TID PRN Humalog (Insulin Lispro) 100 Unit/Ml Vial 1 Unit SQ ACHS 0-150=0 UNITS 151-200=3 UNITS 201-250=5 UNITS 251-300=7 UNITS 301-350=9 UNITS 351-400 GIVE 10 UNITS CALL MD IF BG LESS THAN 60 OR OVER 400 Citalopram HBr (Citalopram Hydrobromide) 10 Mg Tablet 10 Mg PO DAILY Glimepiride 2 Mg Tablet 2 Mg PO DAILY Donepezil HCl 10 Mg Tablet 10 Mg PO HS Tylenol (Acetaminophen) 325 Mg Tablet 650 Mg PO Q6H PRN Multiple Vitamin (Multivitamin with Minerals) 1 Each Tablet 1 Each PO DAILY Senna Lax (Sennosides) 8.6 Mg Tablet 8.6 Mg PO HS PRN Potassium Chloride 10 Meq Tab.er.prt 10 Meq PO Q12H Pantoprazole Sodium 20 Mg Tablet.dr 20 Mg PO DAILY Memantine HCl 10 Mg Tablet 10 Mg PO Q12H Magnesium (Magnesium Oxide) 400 Mg Magnesium Tablet 400 Mg PO 0800,1600 Furosemide 40 Mg Tablet 40 Mg PO DAILY Ferrous Sulfate 324 Mg (65 Mg Iron) Tablet. 324 Mg PO DAILY Atorvastatin Calcium 40 Mg Tablet 40 Mg PO HS Eliquis (Apixaban) 5 Mg Tablet 5 Mg PO Q12H Ropinirole HCl 0.5 Mg Tablet 0.5 Mg PO Q8H Aspirin EC (Aspirin) 81 Mg Tablet. 81 Mg PO DAILY Reported Biofreeze (Menthol) 4 % Gel..ml. 1 Applic TP QID PRN APPLY TO BILATERAL SHOULDER PAIN Vitamin D3 (Cholecalciferol (Vitamin D3)) 25 Mcg (1000 Unit) Tablet 25 Mcg PO DAILY Miralax (Polyethylene Glycol 3350) 17 Gram Powd.pack 17 Gm PO Q72H PRN Milk of Magnesia (Magnesium Hydroxide) 400 Mg/5 Ml Oral.susp 30 Ml PO HS PRN Discharge Instructions Discharge Diet: ADA Diet Discharge Physical Examination Vital Signs Vital Signs Date Time Temp Pulse Resp B/P (MAP) Pulse Ox O2 Delivery O2 Flow Rate FiO2 11/01/21 11:07 36.4 94 16 104/51 (68) 98 Room Air Allergies: Coded Allergies: No Known Drug Allergies (Unverified , 10/12/21) Discharge Summary Date of Admission Oct 28, 2021 at 19:09 Date of Discharge Discharge Date: Nov 01, 2021 Admission Diagnosis Assessment: Sepsis UTO AF HTN HLP Recent hip fracture Advanced age Plan: Pain control Cardiology appreciated Discharge Diagnosis DC [place] once approved (1) Atrial fibrillation with rapid ventricular response Status: Acute (2) Fall Status: Acute (3) Chest pain Status: Acute Qualifiers: Qualified Codes: R07.9 - Chest pain, unspecified (4) UTI (urinary tract infection) Status: Acute Qualifiers: Qualified Codes: N30.01 - Acute cystitis with hematuria (5) Sepsis Status: Acute Qualifiers: Qualified Codes: A41.9 - Sepsis, unspecified organism (6) Cardiomyopathy Clinical Quality Measures AMI/AHF: ASA po Prior to arrival: ORACIO Pina DO Nov 01, 2021 13:48
--- NOTE | 2021-11-01 13:48 | Discharge Inst-Skilled Nursing ---
Discharge Inst-Skilled NF Reconcile Patient Problems Problems Reviewed?: Yes Chief Complaint CC: Chest pain with UTI and sepsis HPI: This is an 85 yr old female who had presented from [facility] status post fracture of her left femur. Repair by Dr. Mohr. Placed at [facility]. She suffered a fall. She was diagnosed with UTI and sepsis with elevated liver enzymes. Hemoglobin is 8.3. [facility] and wants her to stay in the hospital for a couple months. Cefepime initiated for facility acquired UTI. Pt maintained on Eliquis. Cardiology was consulted for elevated troponin. Patient Instructions Patient Problems: Debility Consult/Follow Up/Orders Skilled NF Admit to: Certification (SNF) I certify that SNF services are required to be given on an inpatient basis because of the above named patient's need for fci care on a continuing basis for the conditions(s) for which he/she was receiving inpatient hospital services prior to his/her transfer to the SNF. [facility] Order: Nursing Services, Sewing Department Supervisor-Evaluate & Treat, Physical Therapy-Evaluate & Treat Oxygen Delivery Method: Room Air Discharge Diet: ADA Diet Daily Activity as Tolerated: Yes Resuscitation Status: Do Not Resuscitate New & Resume Previous Orders New Medications: Cephalexin (Cephalexin) 250 Mg Capsule 500 MG PO TID, #21 CAP Fluconazole (Fluconazole) 100 Mg Tablet 100 MG PO DAILY@1500, #10 TAB Lisinopril (Lisinopril) 5 Mg Tablet 2.5 MG PO DAILY, #30 TAB Changed Medications: Insulin Lispro (Humalog) 100 Unit/Ml Vial 1 UNIT SQ ACHS, #1 EA (Changed from: UNIT) 0-150=0 UNITS 151-200=3 UNITS 201-250=5 UNITS 251-300=7 UNITS 301-350=9 UNITS 351-400 GIVE 10 UNITS CALL MD IF BG LESS THAN 60 OR OVER 400 Continued Medications: Acetaminophen (Tylenol) 325 Mg Tablet 650 MG PO Q6H PRN for PAIN-MILD (1-4), #30 TAB (This prescription has been renewed) ALPRAZolam (ALPRAZolam) 0.25 Mg Tablet 0.25 MG PO TID PRN for ANXIETY, #15 TAB (This prescription has been renewed) Apixaban (Eliquis) 5 Mg Tablet 5 MG PO Q12H, #60 TAB (This prescription has been renewed) Aspirin (Aspirin EC) 81 Mg Tablet.dr 81 MG PO DAILY, #30 TAB (This prescription has been renewed) Atorvastatin Calcium (Atorvastatin Calcium) 40 Mg Tablet 40 MG PO HS, #30 TAB (This prescription has been renewed) Citalopram Hydrobromide (Citalopram HBr) 10 Mg Tablet 10 MG PO DAILY, #30 TAB (This prescription has been renewed) Donepezil HCl (Donepezil HCl) 10 Mg Tablet 10 MG PO HS, #30 TAB (This prescription has been renewed) Ferrous Sulfate (Ferrous Sulfate) 324 Mg (65 Mg Iron) Tablet.dr 324 MG PO DAILY, #30 TAB (This prescription has been renewed) Furosemide (Furosemide) 40 Mg Tablet 40 MG PO DAILY, #30 TAB (This prescription has been renewed) Glimepiride (Glimepiride) 2 Mg Tablet 2 MG PO DAILY, #30 TAB (This prescription has been renewed) Magnesium Oxide (Magnesium) 400 Mg Magnesium Tablet 400 MG PO 0800,1600, #60 TAB (This prescription has been renewed) Memantine HCl (Memantine HCl) 10 Mg Tablet 10 MG PO Q12H, #60 TAB (This prescription has been renewed) Multivitamin with Minerals (Multiple Vitamin) 1 Each Tablet 1 EACH PO DAILY, #30 TAB (This prescription has been renewed) Pantoprazole Sodium (Pantoprazole Sodium) 20 Mg Tablet.dr 20 MG PO DAILY, #30 TAB (This prescription has been renewed) Potassium Chloride (Potassium Chloride) 10 Meq Tab.er.prt 10 MEQ PO Q12H, #60 TAB (This prescription has been renewed) Ropinirole HCl (Ropinirole HCl) 0.5 Mg Tablet 0.5 MG PO Q8H, #60 TAB (This prescription has been renewed) Sennosides (Senna Lax) 8.6 Mg Tablet 8.6 MG PO HS PRN for CONSTIPATION-5TH LINE, #10 TAB (This prescription has been renewed) Discontinued Medications: Cholecalciferol (Vitamin D3) (Vitamin D3) 25 Mcg (1000 Unit) Tablet 25 MCG PO DAILY, TAB Magnesium Hydroxide (Milk of Magnesia) 400 Mg/5 Ml Oral.susp 30 ML PO HS PRN for CONSTIPATION-7TH LINE, ML Menthol (Biofreeze) 4 % Gel..ml. 1 APPLIC TP QID PRN for PAIN-BREAKTHROUGH, EA APPLY TO BILATERAL SHOULDER PAIN Polyethylene Glycol 3350 (Miralax) 17 Gram Powd.pack 17 GM PO Q72H PRN for CONSTIPATION-2ND LINE, EACH Candy Myers Nov 01, 2021 13:47 CANDY MYERS DO Nov 01, 2021 13:48
[2021-11-01] MEDS ORDERED: fluCOnazole (DIFLUCAN) 100 MG TAB PO SCH (15:00)
[2021-11-01 16:00] VITALS: BP 130/59
--- NOTE | 2021-11-01 18:00 | Physician Query Clarification ---
Physician Query-General Query to Physician: The medical record reflects the following clinical scenario: The patient, in the setting of History/Risk factors, Sepsis, DM, HTN, Clinical Findings on Admission: Chest Pain, Troponin I 0.036, 0.141 then 0.186, Per Dr. Nubia Peñaloza "likely Type 2 [place] - likely secondary to sepsis, transient hypotension and a-fib with RVR and/or ac on chronic systolic CHF" Treatment ASA in ER, Cardiology consultation, Treating underlying conditions with IV ABX, and IV Lasix Question: Do you agree with the impression of Type [address] Nubia Peñaloza? Yes; will document Type II [place], present on admission in the Progress Notes No; will continue current documentation in the Progress Notes Other; will document explanation of clinical findings Clinically undetermined; no explanation for clinical findings Please clarify and document your clinical opinion in the Progress Notes and Discharge Summary including the definitive and/or presumptive diagnosis, ([place] or probable), related to the above clinical findings. Please include clinical findings supporting your diagnosis. In responding to this query, please exercise your independent professional judgment. The purpose of this communication is to more accurately reflect the complexity of your patients condition. The fact that a question is asked does not imply that any particular answer is desired or expected. Thank you for timely response to this clarification. Dunia Ruffin RN, MSN Clinical Strapper Operator [phone] [email or web address] for more PHYSICIAN RESPONSE: Based on the clinical findings in the record, please respond to the query above on this document as an addendum. Physician Response: Physician Response yes If you have questions please contact: Shotgun Shell Assembly Machine Adjuster: Ext: Thank you for your time and cooperation. Clinical Strapper Operator/Shotgun Shell Assembly Machine Adjuster This is a permanent part of the medical record DUNIA RUFFIN Nov 01, 2021 18:00 ORACIO BONDS DO Nov 01, 2021 21:08
[2021-11-01 19:27] VITALS: BP 130/64
[2021-11-01] MEDS: DONEPEZIL 10 MG (ARICEPT) TAB PO SCH (20:01)
[2021-11-01] MEDS: ALPRAZolam 0.25 MG (XANAX) TAB PO PRN (21:36)
--- NOTE | 2021-11-01 22:00 | Discharge Summary ---
Discharge Summary Hospital Course Was the Problem List Reviewed?: Yes Problems/Dx: (1) Atrial fibrillation with rapid ventricular response Status: Acute (2) Fall Status: Acute (3) Chest pain Status: Acute Qualifiers: Qualified Codes: R07.9 - Chest pain, unspecified (4) UTI (urinary tract infection) Status: Acute Qualifiers: Qualified Codes: N30.01 - Acute cystitis with hematuria (5) Sepsis Status: Acute Qualifiers: Qualified Codes: A41.9 - Sepsis, unspecified organism (6) Cardiomyopathy Hospital Course Date of Admission: Oct 28, 2021 at 19:09 Admission Diagnosis : Family Physician/Provider: David Bueno MD Date of Discharge: 11/01/21 Discharge Diagnosis: [ ] Hospital Course: Nieves is an 85 yo female who was admitted from [facility] s/p fracture of left femur that was repaired by Dr. Mohr. Pt was found to have UTI with sepsis, elevated liver enzymes and anemia with Hgb of 8.3. Pt was started on cefepime for facility acquired UTI. Pt has hx of Afib, maintained on eliquis. Cardiology was consulted for elevated troponin, but work up was unremarkable. Son had concerns of inadequate care at [facility], so placement into [facility] was initiated. Pt continues to recover well with minimal pain. Labs and Pending Lab Test: Laboratory Tests 11/01/21 04:55: Glucometer 224H 11/01/21 08:06: White Blood Count 7.7, Red Blood Count 3.18L, Hemoglobin 9.3L, Hematocrit 31L, Mean Corpuscular Volume 98, Mean Corpuscular Hemoglobin 29, Mean Corpuscular Hemoglobin Concent 30L, Red Cell Distribution Width 15.0H, Platelet Count 400, Mean Platelet Volume 10.1, Immature Granulocyte % (Auto) 5, Neutrophils (%) (A uto) 62, Lymphocytes (%) (Auto) 20, Monocytes (%) (Auto) 9, Eosinophils (%) (Auto) 3, Basophils (%) (Auto) 1, Neutrophils # (Auto) 4.8, Lymphocytes # (Auto) 1.6, Monocytes # (Auto) 0.7, Eosinophils # (Auto) 0.3, Basophils # (Auto) 0.1, Immature Granulocyte # (Auto) 0.4H 11/01/21 11:06: Glucometer 320H 11/01/21 16:38: Glucometer 316H 11/01/21 20:12: Glucometer 245H Microbiology 10/28/21 Urine Culture - Final, Complete Proteus mirabilis Escherichia coli 10/28/21 Blood Culture - Preliminary, Resulted Positive; See Report Escherichia coli Home Meds Active Lisinopril 5 Mg Tablet 2.5 Mg PO DAILY Cephalexin 250 Mg Capsule 500 Mg PO TID Fluconazole 100 Mg Tablet 100 Mg PO DAILY@1500 ALPRAZolam 0.25 Mg Tablet 0.25 Mg PO TID PRN Humalog (Insulin Lispro) 100 Unit/Ml Vial 1 Unit SQ ACHS 0-150=0 UNITS 151-200=3 UNITS 201-250=5 UNITS 251-300=7 UNITS 301-350=9 UNITS 351-400 GIVE 10 UNITS CALL MD IF BG LESS THAN 60 OR OVER 400 Citalopram HBr (Citalopram Hydrobromide) 10 Mg Tablet 10 Mg PO DAILY Glimepiride 2 Mg Tablet 2 Mg PO DAILY Donepezil HCl 10 Mg Tablet 10 Mg PO HS Tylenol (Acetaminophen) 325 Mg Tablet 650 Mg PO Q6H PRN Multiple Vitamin (Multivitamin with Minerals) 1 Each Tablet 1 Each PO DAILY Senna Lax (Sennosides) 8.6 Mg Tablet 8.6 Mg PO HS PRN Potassium Chloride 10 Meq Tab.er.prt 10 Meq PO Q12H Pantoprazole Sodium 20 Mg Tablet. 20 Mg PO DAILY Memantine HCl 10 Mg Tablet 10 Mg PO Q12H Magnesium (Magnesium Oxide) 400 Mg Magnesium Tablet 400 Mg PO 0800,1600 Furosemide 40 Mg Tablet 40 Mg PO DAILY Ferrous Sulfate 324 Mg (65 Mg Iron) Tablet. 324 Mg PO DAILY Atorvastatin Calcium 40 Mg Tablet 40 Mg PO HS Eliquis (Apixaban) 5 Mg Tablet 5 Mg PO Q12H Ropinirole HCl 0.5 Mg Tablet 0.5 Mg PO Q8H Aspirin EC (Aspirin) 81 Mg Tablet. 81 Mg PO DAILY Assessment/Pt Instructions PCP 1 week Discharge Planning: <30 minutes discharge planning Discharge Instructions Discharge Diet: ADA Diet Discharge Physical Examination Vital Signs Vital Signs Date Time Temp Pulse Resp B/P (MAP) Pulse Ox O2 Delivery O2 Flow Rate FiO2 11/01/21 20:15 Room Air 11/01/21 19:27 36.1 73 20 130/64 (86) 100 General Appearance: No Apparent Distress, WD/WN, Chronically ill Allergies: Coded Allergies: No Known Drug Allergies (Unverified , 10/12/21) Discharge Summary Date of Admission Oct 28, 2021 at 19:09 Date of Discharge Discharge Date: Nov 02, 2021 Admission Diagnosis Assessment: Sepsis UTO AF HTN HLP Recent hip fracture Advanced age Plan: Pain control Cardiology appreciated Discharge Diagnosis DC [place] once approved (1) Atrial fibrillation with rapid ventricular response Status: Acute (2) Fall Status: Acute (3) Chest pain Status: Acute Qualifiers: Qualified Codes: R07.9 - Chest pain, unspecified (4) UTI (urinary tract infection) Status: Acute Qualifiers: Qualified Codes: N30.01 - Acute cystitis with hematuria (5) Sepsis Status: Acute Qualifiers: Qualified Codes: A41.9 - Sepsis, unspecified organism (6) Cardiomyopathy Clinical Quality Measures AMI/AHF: ASA po Prior to arrival: ORACIO Pina DO Nov 01, 2021 22:00
[2021-11-02] VITALS: BP 148/63
[2021-11-02 06:00] LABS: BASOPHILS # (AUTO) 0.1 10^3/uL (0.0-0.1); BASOPHILS % (AUTO) 1 % (0-10); EOSINOPHILS # (AUTO) 0.2 10^3/uL (0.0-0.3); EOSINOPHILS % (AUTO) 3 % (0-10); HEMATOCRIT 30 % (35-52); HEMOGLOBIN 9.2 g/dL (11.5-16.0); LYMPHOCYTES # (AUTO) 1.2 10^3/uL (1.0-4.0); LYMPHOCYTES % (AUTO) 15 % (12-44); MEAN CORPUSCULAR HEMOGLOBIN 30 pg (25-34); MEAN CORPUSCULAR HGB CONC 31 g/dL (32-36); MEAN CORPUSCULAR VOLUME 97 fL (80-99); MEAN PLATELET VOLUME 10.8 fL (9.0-12.2); MONOCYTES # (AUTO) 0.5 10^3/uL (0.0-1.0); MONOCYTES % (AUTO) 7 % (0-12); NEUTROPHILS % (AUTO) 67 % (42-75); PLATELET COUNT 387 10^3/uL (130-400); WHITE BLOOD COUNT 7.5 10^3/uL (4.3-11.0)
[2021-11-02] MEDS: MULTIVIT W/MINERALS TAB (THERAGRAN M) PO SCH (06:09)
[2021-11-02] MEDS: GLIMEPIRIDE 2 MG (AMARYL) TAB PO SCH (06:12)
[2021-11-02] MEDS: inSUlin ASPART (NovoLOG) 1 UNIT/0.01 ML (CHARGE PER UNIT) SC SCH (06:12)
[2021-11-02] MEDS: rOPINIRole 0.25 MG (REQUIP) TAB PO SCH (06:12)
[2021-11-02 07:39] VITALS: BP 126/61
[2021-11-02] MEDS: SPIRONOLACTONE 25 MG (ALDACTONE) TAB PO SCH (09:07)
[2021-11-02] MEDS: FERROUS SULF 325 MG (IRON) TAB PO SCH (09:07)
[2021-11-02] MEDS: KCL 10 MEQ TAB (MICRO K) PO SCH (09:07)
[2021-11-02] MEDS: MAGNESIUM OXIDE (MAG-OX)400 MG TAB PO SCH (09:07)
[2021-11-02] MEDS: lisINopril 5 MG (PRINIVIL) TABLET PO SCH (09:07)
[2021-11-02] MEDS: PANTOPRAZOLE 20 MG TABLET (PROTONIX) PO SCH (09:08)
[2021-11-02] MEDS: APIXABAN 5 MG (ELIQUIS) TABLET PO SCH (09:08)
[2021-11-02] MEDS: FUROSEMIDE 40 MG (LASIX) TAB PO SCH (09:08)
[2021-11-02] MEDS: VITAMIN D3 25 MCG (1,000 UNITS) TABLET PO SCH (09:08)
[2021-11-02] MEDS: CEPHALEXIN 250 MG (KEFLEX) CAP PO SCH (09:08)
[2021-11-02] MEDS: MEMANTINE 10 MG (NAMENDA) TABLET PO SCH (09:08)
[2021-11-02] MEDS: ASPIRIN E.C. 81 MG (ECOTRIN) TAB PO SCH (09:08)
--- NOTE | 2021-11-02 11:35 | Discharge Summary ---
Discharge Summary Hospital Course Was the Problem List Reviewed?: Yes Problems/Dx: (1) Atrial fibrillation with rapid ventricular response Status: Acute (2) Fall Status: Acute (3) Chest pain Status: Acute Qualifiers: Qualified Codes: R07.9 - Chest pain, unspecified (4) UTI (urinary tract infection) Status: Acute Qualifiers: Qualified Codes: N30.01 - Acute cystitis with hematuria (5) Sepsis Status: Acute Qualifiers: Qualified Codes: A41.9 - Sepsis, unspecified organism (6) Cardiomyopathy Hospital Course Date of Admission: Oct 28, 2021 at 19:09 Admission Diagnosis : Family Physician/Provider: David Bueno MD Date of Discharge: 11/02/21 Discharge Diagnosis: [ ] Hospital Course: Nieves is an 85 yo female who was admitted from [facility] s/p fracture of left femur that was repaired by Dr. Mohr. Pt was found to have UTI with sepsis, elevated liver enzymes and anemia with Hgb of 8.3. Pt was started on cefepime for facility acquired UTI. Pt has hx of Afib, maintained on eliquis. Cardiology was consulted for elevated troponin, but work up was unremarkable. Son had concerns of inadequate care at [facility], so placement into [facility] was initiated. Pt continues to recover well with minimal pain. Labs and Pending Lab Test: Laboratory Tests 11/01/21 16:38: Glucometer 316H 11/01/21 20:12: Glucometer 245H 11/02/21 05:07: Glucometer 290H 11/02/21 05:56: White Blood Count 7.5, Red Blood Count 3.12L, Hemoglobin 9.2L, Hematocrit 30L, Mean Corpuscular Volume 97, Mean Corpuscular Hemoglobin 30, Mean Corpuscular Hemoglobin Concent 31L, Red Cell Distribution Width 15.2H, Platelet Count 387, Mean Platelet Volume 10.8, Immature Granulocyte % (Auto) 7, Neutrophils (%) (Auto) 67, Lymphocytes (%) (Auto) 15, Monocytes (%) (Auto) 7, Eosinophils (%) (Auto) 3, Basophils (%) (Auto) 1, Neutrophils # (Auto) 5.0, Lymphocytes # (Auto) 1.2, Monocytes # (Auto) 0.5, Eosinophils # (Auto) 0.2, Basophils # (Auto) 0.1, Immature Granulocyte # (Auto) 0.5H 11/02/21 10:56: Glucometer 284H Microbiology 10/28/21 Urine Culture - Final, Complete Proteus mirabilis Escherichia coli 10/28/21 Blood Culture - Preliminary, Resulted Positive; See Report Escherichia coli Home Meds Active Lisinopril 5 Mg Tablet 2.5 Mg PO DAILY Cephalexin 250 Mg Capsule 500 Mg PO TID Fluconazole 100 Mg Tablet 100 Mg PO DAILY@1500 ALPRAZolam 0.25 Mg Tablet 0.25 Mg PO TID PRN Humalog (Insulin Lispro) 100 Unit/Ml Vial 1 Unit SQ ACHS 0-150=0 UNITS 151-200=3 UNITS 201-250=5 UNITS 251-300=7 UNITS 301-350=9 UNITS 351-400 GIVE 10 UNITS CALL MD IF BG LESS THAN 60 OR OVER 400 Citalopram HBr (Citalopram Hydrobromide) 10 Mg Tablet 10 Mg PO DAILY Glimepiride 2 Mg Tablet 2 Mg PO DAILY Donepezil HCl 10 Mg Tablet 10 Mg PO HS Tylenol (Acetaminophen) 325 Mg Tablet 650 Mg PO Q6H PRN Multiple Vitamin (Multivitamin with Minerals) 1 Each Tablet 1 Each PO DAILY Senna Lax (Sennosides) 8.6 Mg Tablet 8.6 Mg PO HS PRN Potassium Chloride 10 Meq Tab.er.prt 10 Meq PO Q12H Pantoprazole Sodium 20 Mg Tablet. 20 Mg PO DAILY Memantine HCl 10 Mg Tablet 10 Mg PO Q12H Magnesium (Magnesium Oxide) 400 Mg Magnesium Tablet 400 Mg PO 0800,1600 Furosemide 40 Mg Tablet 40 Mg PO DAILY Ferrous Sulfate 324 Mg (65 Mg Iron) Tablet. 324 Mg PO DAILY Atorvastatin Calcium 40 Mg Tablet 40 Mg PO HS Eliquis (Apixaban) 5 Mg Tablet 5 Mg PO Q12H Ropinirole HCl 0.5 Mg Tablet 0.5 Mg PO Q8H Aspirin EC (Aspirin) 81 Mg Tablet. 81 Mg PO DAILY Assessment/Pt Instructions NH rounds Discharge Planning: <30 minutes discharge planning Discharge Instructions Discharge Diet: ADA Diet Discharge Physical Examination Vital Signs Vital Signs Date Time Temp Pulse Resp B/P (MAP) Pulse Ox O2 Delivery O2 Flow Rate FiO2 11/02/21 08:00 Room Air 11/02/21 07:39 36.0 75 20 126/61 (82 93 General Appearance: No Apparent Distress, WD/WN, Chronically ill Respiratory: Lungs Clear, Normal Breath Sounds Cardiovascular: Regular Rate, Rhythm Neurologic/Psychiatric: Alert, Oriented x3, Depressed Affect Allergies: Coded Allergies: No Known Drug Allergies (Unverified , 10/12/21) Discharge Summary Date of Admission Oct 28, 2021 at 19:09 Date of Discharge Discharge Date: Nov 02, 2021 Admission Diagnosis Assessment: Sepsis UTO AF HTN HLP Recent hip fracture Advanced age Plan: Pain control Cardiology appreciated Discharge Diagnosis DC [place] once approved (1) Atrial fibrillation with rapid ventricular response Status: Acute (2) Fall Status: Acute (3) Chest pain Status: Acute Qualifiers: Qualified Codes: R07.9 - Chest pain, unspecified (4) UTI (urinary tract infection) Status: Acute Qualifiers: Qualified Codes: N30.01 - Acute cystitis with hematuria (5) Sepsis Status: Acute Qualifiers: Qualified Codes: A41.9 - Sepsis, unspecified organism (6) Cardiomyopathy Clinical Quality Measures AMI/AHF: ASA po Prior to arrival: ORACIO Pina DO Nov 02, 2021 11:35
[2021-11-02 11:55] VITALS: BP 126/61
== END 2021-11-02 11:55 | DRG 871 ==
LOC: EDUNIT# 11:25 → ER 11:27 → CSD 19:09 → 4TH 10-29 08:22
PROVIDERS: ADMIT Family Medicine; ATTEND Internal Medicine
DX: A41.9 Sepsis, unspecified organism (principal); I21.A1 Myocardial infarction type 2; I50.23 Acute on chronic systolic (congestive) heart failure; N39.0 Urinary tract infection, site not specified; E87.2 Acidosis; B49 Unspecified mycosis; I42.0 Dilated cardiomyopathy; I48.20 Chronic atrial fibrillation, unspecified; R07.9 Chest pain, unspecified; D64.9 Anemia, unspecified; Z79.82 Long term (current) use of aspirin; Z79.899 Other long term (current) drug therapy; E78.00 Pure hypercholesterolemia, unspecified; E11.9 Type 2 diabetes mellitus without complications; Z79.01 Long term (current) use of anticoagulants; I25.10 Atherosclerotic heart disease of native coronary artery without angina pectoris; I11.0 Hypertensive heart disease with heart failure; I27.20 Pulmonary hypertension, unspecified; Z86.73 Personal history of transient ischemic attack (TIA), and cerebral infarction without residual deficits; Z79.4 Long term (current) use of insulin
CPT/HCPCS: 36415; 70450; 71045; 72125; 80048; 80053; 80061; 81000; 82947; 83605; 83735; 83874; 83880; 84484; 85007; 85025; 85027; 85610; 85730; 87040; 87077; 87088; 87186; 93005; 93308; 96361; 96372; 96374; 96375